=== PATIENT | female | born 1955 | race Caucasian/White ===

== ENCOUNTER → 2016-11-05 | Outpatient (CLI) | payer MEDICARE, OTHER ==
[2016-11-05 09:59] LABS: Anisocytosis Slight; CH 21.6; CHCM 29.4; HCT 34.2 % (34.0-46.0); HDW 3.15; HGB 10.4 gm/dL (11.4-16.0); Hypochromasia Marked; MCH 22.5 pg (25.0-35.0); MCHC 30.4 g/dL (31.0-37.0); MCV 73.8 fL (80.0-100.0); Microcytosis Moderate; RBC 4.63 m/uL (3.80-5.40); WBC 5.4 k/uL (3.8-10.6)
[2016-11-05 11:26] LABS: Erythrocyte Sedimentation Rate 13 mm/hr (0-20)
--- NOTE | 2016-11-05 11:35 | CT ---
EXAMINATION TYPE: CT ankle LT wo con DATE OF EXAM: 11/05/2016 9:53 AM COMPARISON: NONE HISTORY: Patient complains of continued left ankle pain post op. CT DLP: [address] of the left ankle with reconstruction imaging. TECHNIQUE: Unenhanced CT of the left ankle was performed with bone and soft tissue window settings coronado bmitted in the axial coronal and sagittal planes. FINDINGS: There is postoperative arthrodesis are noted to involve the tibia, talus and os calcis. 2 surgical sc rews enter the tibia and into the os calcis. A single surgical screw enters the anterior portion of t he talus and enters into a fragmented talus. There is collapse of the tail are dome with marked bony fragmentation identified. I do not see evidence for acute fracture. Cystic osseous changes involving the os calcis and various tarsal bones may reflect cystic degenerative change although chronic infect ion is not excluded. No evidence for bony destructive process. Soft tissue edema is noted. IMPRESSION: 1. Extensive postoperative change of arthrodesis with collapse and bony fragmentation of the talar do me and body.
== END | disposition home or self-care (01) ==
LOC: RADCTMAIN 09:14
PROVIDERS: ATTEND Orthopaedic Surgery
DX: M25.572 Pain in left ankle and joints of left foot (principal); Z98.890 Other specified postprocedural states
CPT/HCPCS: 83520; 85027; 85652; 86140

== ENCOUNTER → 2016-12-29 | Outpatient (CLI) | payer MEDICARE, OTHER | LOC: LABWHC1 14:05 | PROVIDERS: ATTEND Orthopaedic Surgery | DX: E55.9 Vitamin D deficiency, unspecified (principal) | CPT/HCPCS: 36415; 82306 ==

== ENCOUNTER → 2017-01-07 | Outpatient (CLI) | payer MEDICARE, OTHER ==
--- NOTE | 2017-01-08 08:08 | MM ---
Reason for exam: screening (asymptomatic). Last mammogram was performed 6 years ago. History: Patient is postmenopausal. Family history of breast cancer in maternal aunt and breast cancer in 2 sisters. Physical Findings: A clinical breast exam by your physician is recommended on an annual basis and results should be correlated with mammographic findings. MG Screening Mammo w CAD Bilateral CC and MLO view(s) were taken. Prior study comparison: January 08, 2011, [facility] DIGITAL RIGHT MAMMOGRAM w/CAD. November 18, 2010, bilateral digital screening mammo w/CAD. There are scattered fibroglandular densities. No significant changes when compared with prior studies. ASSESSMENT: Benign, BI-RAD 2 RECOMMENDATION: Routine screening mammogram of both breasts in 1 year.
== END | disposition home or self-care (01) ==
LOC: RADMAMWWP 16:36
PROVIDERS: ATTEND Family Medicine
DX: Z12.31 Encounter for screening mammogram for malignant neoplasm of breast (principal)

== ENCOUNTER → 2017-02-17 | Outpatient (CLI) | payer MEDICARE, OTHER ==
--- NOTE | 2017-02-18 11:59 | BD ---
EXAMINATION TYPE: MG DEXA axial skeleton. DATE OF EXAM: 02/17/2017 3:49 PM COMPARISON: NONE CLINICAL HISTORY: Height: 5 FT 6 IN Weight: 230 FRAX RISK QUESTIONS: Alcohol (3 or more units per day): NO Family History (Parent hip fracture): NO Glucocorticoids (More than 3mos): NO (Ex: prednisone, prednisolone, methylprednisolone, dexamethasone, and hydrocortisone). History of Fracture in Adulthood: YES Secondary Osteoporosis: 1. Type 1 Diabetes: NO 2. Hyperthyroidism: NO 3. Menopause before 45: NO 4. Malnutrition: NO 5. Chronic liver disease: NO Rheumatoid Arthritis: NO Current Tobacco Use: NO RISK FACTORS HISTORY OF: Surgery to Spine/Hip(right/left)/Wrist (right/left): RT HIP RELACEMENT/CSPINE/TSPINE When: [id number] Other Fractures since Age 51: LT ANKLE When: 4-5 YRS AGO Smoke tobacco: JUST STOPPED ONE MONTH AGO Drink Alcohol: RARELY Postmenopausal woman: AGE 49 MEDICATIONS: Additional Medications: ALPRAZOLAM,AMLODIPINE, INHALER, ASPIRIN, ATROVENT,GABAPENTIN, ESOMEPRAZOLE MA GNESIUM, HYDROCODONE, IBUPROFEN, PAROXETINE, PRIMIDONE, PROMETHAZINE,PROPRANOLOL, ROPINIROLE,TIZANIDI NE, TRAMADOL Additional History: COPD AND EMPHYSEMA EXAM MEASUREMENTS: Bone mineral densitometry was performed using the Medialets System. Bone mineral density as measured about the Lumbar spine is: ----- L1-L4(G/cm2): 1.145 T Score Values are as follows: ----- L2: -0.1 ----- L3: 0.3 ----- L4: -0.8 ----- L1-L4: -0.3 BASELINE Bone mineral density about the L hip (g/cm2): 0.837 T Score values are as follows: -----L Neck: -1.4 -----L Total: -1.5 BASELINE IMPRESSION: Osteopenia (T Score between -2.5 and -1 as noted by T score values There is slightly increased risk of fracture and the patient may be considered for treatment. Re-Screen 2-5 years. LEFT FEMUR NOTE: T-SCORE=SD OF THE YOUNG ADULT MEAN.
== END | disposition home or self-care (01) ==
LOC: RADBDWWP 15:15
PROVIDERS: ATTEND Family Medicine
DX: M85.80 Other specified disorders of bone density and structure, unspecified site (principal)
CPT/HCPCS: 77080

== ENCOUNTER 2017-04-12 19:45 | Observation (INO) | payer MEDICARE, OTHER ==
--- NOTE | 2017-04-12 20:20 | ED ---
Chest Pain HPI - General Chief Complaint: Chest Pain Stated Complaint: chest pain Time Seen by Provider: 04/12/17 20:19 Source: patient, EMS Mode of arrival: EMS Limitations: no limitations - History of Present Illness Initial Comments: This patient is a 62-year-old woman who presents to be alive for spasming pain along the costal margin bilaterally. The patient states that this has happened to her once before about 5 years ago. She also does have more frequent leg spasms that occur fairly regularly. Patient notes that today's episode started at 7 AM and has been coming going intermittently throughout the day. When the symptoms continued into this evening she decided that she should be evaluated here in emergency department. The patient states that due to the pain she has not taken her usual gabapentin or [place] today. MD Complaint: chest pain Onset/Timin -: hour(s) Onset: during rest Pain Location: left chest, right chest Pain Radiation: none Severity: severe Quality: other (Spasming) Consistency: intermittent Improves With: nothing Worsens With: nothing - Related Data Home Medications Medication Instructions Recorded Confirmed Primidone [Mysoline] 250 mg PO BID 04/09/15 04/12/17 Umeclidinium Brm/Vilanterol Tr 1 puff INHALATION RT-DAILY 04/09/15 04/12/17 [Anoro Ellipta 62.5-25 Mcg INH] Esomeprazole Magnesium [NexIUM] 40 mg PO DAILY 04/23/15 04/12/17 amLODIPine [Norvasc] 10 mg PO DAILY 04/23/15 04/12/17 Albuterol Inhaler [Ventolin Hfa 1 - 2 puff INHALATION RT-QID PRN 09/15/16 Inhaler] Aspirin [Adult Low Dose Aspirin EC] 81 mg PO DAILY 09/15/16 04/12/17 Gabapentin [Neurontin] 600 mg PO BID PRN 09/21/16 04/12/17 HYDROcodone/APAP 10-325MG [[place] 1 tab PO TID PRN 09/21/16 04/12/17 10-325] Ibuprofen [Motrin] 800 mg PO TID PRN 09/21/16 04/12/17 ALPRAZolam [Xanax] 0.5 mg PO BID PRN 04/12/17 04/12/17 ARIPiprazole [Abilify] 5 mg PO DAILY 04/12/17 04/12/17 Fluticasone Nasal [place] [Flonase 1 spray EA NOSTRIL BID 04/12/17 04/12/17 Nasal [place]] Ipratropium [place] [Atrovent Hfa] 2 puff INHALATION TID PRN 04/12/17 04/12/17 PARoxetine [Paxil] 20 mg PO DAILY 04/12/17 04/12/17 Promethazine HCl/Codeine 5 ml PO QID PRN 04/12/17 04/12/17 [Prometh-Codein 6.25-10 mg/5 ml] Allergies Allergy/AdvReac Type Severity Reaction Status Date / Time Gtvgblo-Pmv-Oih Reductase AdvReac Myalgia Verified 04/12/17 20:57 Inhibitor varenicline [From Chantix] AdvReac Nightmares Verified 04/12/17 20:57 Review of Systems ROS Statement: Those systems with pertinent positive or pertinent negative responses have been documented in the HPI. ROS Other: All systems not noted in ROS Statement are negative. Constitutional: Denies: fever, chills, weakness Respiratory: Denies: cough, dyspnea, wheezes, hemoptysis Cardiovascular: Reports: as per HPI, chest pain. Denies: palpitations, edema, syncope Gastrointestinal: Denies: abdominal pain, nausea, vomiting, melena, hematochezia Genitourinary: Denies: dysuria, hematuria Musculoskeletal: Denies: back pain Skin: Denies: rash Neurological: Denies: headache, weakness, numbness EKG Findings - EKG Results: EKG: interpreted by FLAKITA WNL, sinus rhythm (Rate 83 bpm), normal axis, normal QRS, normal ST/T, no acute changes - AL, Pacemaker, Normal: Normal tracing: normal tracing Past Medical History Past Medical History: Asthma, COPD, GERD/Reflux, Hypertension, Osteoarthritis ( OA) Additional Past Medical History / Comment(s): hand tremors, hepatitis c History of Any Multi-Drug Resistant Organisms: None Reported Past Surgical History: Back Surgery, Joint Replacement, Orthopedic Surgery Additional Past Surgical History / Comment(s): BACK FUSION, cervical fusion, left ANKLE SURGERY, left knee arthoscopy, TOTAL RIGHT HIP Past Anesthesia/Blood Transfusion Reactions: No Reported Reaction Past Psychological History: Anxiety Smoking Status: Current some day smoker Past Alcohol Use History: Rare Past Drug Use History: None Reported - Past Family History Mother Family Medical History: Deep Vein Thrombosis (DVT) Sister(s) Family Medical History: Cancer General Exam Limitations: no limitations Course Vital Signs 04/12/17 04/12/17 19:48 20:15 Temperature 97.8 F Pulse Rate 85 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 Patient is 62-year-old woman with very atypical chest pain, however she has not previously had a stress test per her report, and I'm not able find record of one and she has had significant risk factors including extensive smoking history , hypercholesterolemia, and there is also family history. Disposition Clinical Impression: Chest pain Disposition: ADMITTED IP TO THIS [facility] Condition: Fair Referrals: Shravan Carmona MD [Primary Care Provider] - 1-2 days
[2017-04-12 20:22] LABS: Anisocytosis Slight; Basophils % (A) 0 %; CH 21.8; CHCM 29.5; Eosinophils # (A) 0.2 k/uL (0-0.7); Eosinophils % (A) 3 %; HCT 35.8 % (34.0-46.0); HGB 10.9 gm/dL (11.4-16.0); Hypochromasia Marked; Luc # (Auto) 0.15; Luc % (Auto) 3; Lymphocytes # (A) 1.9 k/uL (1.0-4.8); Lymphocytes % (A) 36 %; MCH 22.5 pg (25.0-35.0); MCHC 30.3 g/dL (31.0-37.0); MCV 74.1 fL (80.0-100.0); Mean Platelet Volume 9.2; Microcytosis Moderate; Monocytes # (A) 0.4 k/uL (0-1.0); Monocytes % (A) 8 %; Neutrophils # (A) 2.7 k/uL (1.3-7.7); Neutrophils % (A) 51 %; RBC 4.83 m/uL (3.80-5.40); RDW 16.9 % (11.5-15.5); WBC 5.4 k/uL (3.8-10.6); WBC (Perox) 5.62
--- NOTE | 2017-04-12 20:22 | XR ---
EXAMINATION TYPE: XR chest 1V portable DATE OF EXAM: 04/12/2017 COMPARISON: 04/26/2015 HISTORY: Chest pain TECHNIQUE: Single frontal view of the chest is obtained. FINDINGS: There is a relative poor inspiration. There is no gross heart failure. There are chest nico ds. Cervical spine fusion surgery is noted. IMPRESSION: There is a poor inspiration that appears worse than last exam of 04/26/2015. There is colt aring of atelectasis in the midlung wild compared to old exam. No heart failure.
[2017-04-12 20:31] LABS: ALT 32 U/L (9-52); AST 19 U/L (14-36); Alkaline Phosphatase 124 U/L (38-126); Amylase 31 U/L (30-110); Anion Gap 10 mmol/L; Blood Urea Nitrogen 8 mg/dL (7-17); Calcium 8.9 mg/dL (8.4-10.2); Carbon Dioxide 23 mmol/L (22-30); Chloride 108 mmol/L (98-107); Glucose 139 mg/dL (74-99); Non-African American GFR(MDRD) >60 (>60 ml/min/1.73 sqM); Potassium 4.2 mmol/L (3.5-5.1); Sodium 141 mmol/L (137-145); Total Bilirubin 0.3 mg/dL (0.2-1.3); Total Protein 6.4 g/dL (6.3-8.2)
[2017-04-12 20:34] LABS: Partial Thromboplastin Time 24.6 sec (22.0-30.0); Prothrombin Time 9.9 sec (9.0-12.0)
[2017-04-12 20:39] LABS: Creatine Kinase 162 U/L (30-135)
[2017-04-12 20:52] LABS: Creatine Kinase MB 1.5 ng/mL (0.0-2.4); Troponin I <0.012 ng/mL (0.000-0.034)
[2017-04-12] MEDS ORDERED: NITROGLYCERIN SL TABS 0.4 MG TAB SUBLINGUAL PRN (21:52)
[2017-04-12] MEDS ORDERED: PROMETHAZ-COD 6.25-10 MG/5 ML 5 ML CUP PO PRN (21:55)
[2017-04-12] MEDS ORDERED: ALBUTEROL NEBULIZED 2.5 MG/3 ML INHALATION PRN (21:55)
[2017-04-12] MEDS ORDERED: GABAPENTIN 300 MG CAP PO PRN (21:55)
[2017-04-12] MEDS ORDERED: IBUPROFEN 800 MG TAB PO PRN (21:55)
[2017-04-12] MEDS ORDERED: ALPRAZolam 0.5 MG TAB PO PRN (21:55)
[2017-04-12] MEDS ORDERED: IPRATROPIUM 0.5 MG/2.5 ML NEBU INHALATION PRN (21:55)
[2017-04-12] MEDS ORDERED: SODIUM CHLORIDE 0.9% 1,000 ML IV SCH (22:00)
[2017-04-12 22:49] VITALS: TEMP 97.9
[2017-04-12] MEDS: HYDROcodone/APAP 10-325MG 1 EACH TAB PO PRN (22:50)
[2017-04-13 02:36] LABS: Creatine Kinase 146 U/L (30-135)
[2017-04-13 02:50] LABS: Creatine Kinase MB 1.5 ng/mL (0.0-2.4); Troponin I <0.012 ng/mL (0.000-0.034)
[2017-04-13] MEDS: IPRATROPIUM-ALBUTEROL 3 ML NEB INHALATION SCH ×2 (07:06→13:15)
[2017-04-13 07:29] VITALS: BP 140/79; RESP 16
[2017-04-13] MEDS ORDERED: PANTOPRAZOLE 40 MG TABLET PO SCH (07:30)
[2017-04-13 08:15] LABS: Creatine Kinase 131 U/L (30-135)
[2017-04-13 08:25] LABS: Cholesterol 194 mg/dL (<200); HDL Cholesterol 46 mg/dL (40-60); Triglycerides 123 mg/dL (<150)
[2017-04-13 08:28] LABS: Creatine Kinase MB 1.4 ng/mL (0.0-2.4); Troponin I <0.012 ng/mL (0.000-0.034)
[2017-04-13] MEDS: HYDROcodone/APAP 10-325MG 1 EACH TAB PO PRN ×2 (08:52→15:54)
[2017-04-13] MEDS ORDERED: PRIMIDONE 250 MG TAB PO SCH (09:00)
[2017-04-13] MEDS ORDERED: ARIPiprazole 5 MG TAB PO SCH (09:00)
[2017-04-13] MEDS ORDERED: ASPIRIN 325 MG TAB PO SCH (09:00)
[2017-04-13] MEDS ORDERED: PARoxetine 20 MG TAB PO SCH (09:00)
[2017-04-13] MEDS ORDERED: FLUTICASONE 50MCG/SPRAY NASAL 16GM EA NOSTRIL SCH (09:00)
[2017-04-13] MEDS ORDERED: amLODIPine 10 MG TAB PO SCH (09:00)
[2017-04-13] MEDS ORDERED: DOBUTamine DRIP for NUC MED 500 MG in DEXTROSE/WATER 1 250ML.BAG IV ONE (10:27)
[2017-04-13 11:33] LABS: % Iron Saturation 3.2 % (20-50)
--- NOTE | 2017-04-13 12:17 | ECHOF ---
Referral Reason:chest pain MEASUREMENTS -------- HEIGHT: 167.6 cm WEIGHT: 104.3 kg BP: IVSd: 1.0 cm (0.6 - 1.1) LVIDd: 4.1 cm (3.9 - 5.3) LVPWd: 1.2 cm (0.6 - 1.1) IVSs: 1.5 cm LVIDs: 2.4 cm LVPWs: 1.9 cm Ao Diam: 3.4 cm (2.0 - 3.7) AV Cusp: 2.1 cm (1.5 - 2.6) LA Diam: 2.7 cm (2.7 - 3.8) MV EXCURSION: 15.618 mm (> 18.000) MV EF SLOPE: 98 mm/s (70 - 150) EPSS: 2.2 cm MV E Jesús: 1.21 m/s MV DecT: 160 ms MV A Jesús: 1.29 m/s MV E/A Ratio: 0.94 RAP: 5.00 mmHg RVSP: 20.28 mmHg FINDINGS -------- Sinus rhythm. This was a technically difficult study with suboptimal views. There is mild concentric left ventricular hypertrophy. Overall left ventricular systolic function is normal with, an EF between 55 - 60 %. The right ventricle is normal in size and function. The left atrium is normal in size. The right atrium is normal in size. Aortic valve is trileaflet and is mildly thickened. The mitral valve leaflets are mildly thickened. Mild mitral regurgitation is present. Mild tricuspid regurgitation present. The right ventricular systolic pressure, as measured by Doppler, is 20.28mmHg. Pulmonic valve appears structurally normal. The aortic root size is normal. The pericardium is normal. CONCLUSIONS -------- 1. Sinus rhythm. 2. Mild mitral regurgitation is present. 3. Mild tricuspid regurgitation present. 4. The right ventricular systolic pressure, as measured by Doppler, is 20.28mmHg. 5. Pulmonic valve appears structurally normal. 6. The aortic root size is normal. 7. The pericardium is normal. 8. This was a technically difficult study with suboptimal views. 9. There is mild concentric left ventricular hypertrophy. 10. Overall left ventricular systolic function is normal with, an EF between 55 - 60 %. 11. The right ventricle is normal in size and function. 12. The left atrium is normal in size. 13. The right atrium is normal in size. 14. Aortic valve is trileaflet and is mildly thickened. 15. The mitral valve leaflets are mildly thickened. MANAGER GAMES: Fabby Ronquillo RDCS
[2017-04-13 13:18] VITALS: PULSE 78
--- NOTE | 2017-04-13 14:54 | P.HPIM ---
History of Present Illness H&P Date: 04/12/17 Chief Complaint: Chest pain 62-year-old female who presented on the day of admission to the emergency room with a chief complaint of developing chest discomfort. She describes it as a tightness. She stated occurred around earlier in the morning it was intermittent throughout the day. Continue in the morning she decided to come to the emergency room to be evaluated for the above-mentioned symptoms. Patient stated that she did prior incident about 5 years ago. Subsequently the patient was admitted to the services of the attending with chest protocol initiated a cardiology consultation was requested. Patient described the pain in the left anterior chest wall as a spasm intermittent nothing seemed to improve it nothing seemed to make it worse Review of Systems Essentially unremarkable except as mentioned in the present illness Past Medical History Past Medical History: Asthma, COPD, GERD/Reflux, Hypertension, Osteoarthritis ( OA) Additional Past Medical History / Comment(s): hand tremors, hepatitis c History of Any Multi-Drug Resistant Organisms: None Reported Past Surgical History: Back Surgery, Joint Replacement, Orthopedic Surgery Additional Past Surgical History / Comment(s): BACK FUSION, cervical fusion, left ANKLE SURGERY, left knee arthoscopy, TOTAL RIGHT HIP Past Anesthesia/Blood Transfusion Reactions: No Reported Reaction Past Psychological History: Anxiety Smoking Status: Current some day smoker Past Alcohol Use History: Rare Past Drug Use History: None Reported - Past Family History Mother Family Medical History: Deep Vein Thrombosis (DVT) Sister(s) Family Medical History: Cancer Medications and Allergies Home Medications Medication Instructions Recorded Confirmed Type Primidone [Mysoline] 250 mg PO BID 04/09/15 04/12/17 History Umeclidinium Brm/Vilanterol Tr 1 puff INHALATION RT-DAILY 04/09/15 04/12/17 History [Anoro Ellipta 62.5-25 Mcg INH] Esomeprazole Magnesium [NexIUM] 40 mg PO DAILY 04/23/15 04/12/17 History amLODIPine [Norvasc] 10 mg PO DAILY 04/23/15 04/12/17 History Albuterol Inhaler [Ventolin Hfa 1 - 2 puff INHALATION RT-QID PRN 09/15/16 History Inhaler] Aspirin [Adult Low Dose Aspirin EC] 81 mg PO DAILY 09/15/16 04/12/17 History Gabapentin [Neurontin] 600 mg PO BID PRN 09/21/16 04/12/17 History HYDROcodone/APAP 10-325MG [[place] 1 tab PO TID PRN 09/21/16 04/12/17 History 10-325] Ibuprofen [Motrin] 800 mg PO TID PRN 09/21/16 04/12/17 History ALPRAZolam [Xanax] 0.5 mg PO BID PRN 04/12/17 04/12/17 History ARIPiprazole [Abilify] 5 mg PO DAILY 04/12/17 04/12/17 History Fluticasone Nasal [place] [Flonase 1 spray EA NOSTRIL BID 04/12/17 04/12/17 History Nasal [place]] Ipratropium [place] [Atrovent Hfa] 2 puff INHALATION TID PRN 04/12/17 04/12/17 History PARoxetine [Paxil] 20 mg PO DAILY 04/12/17 04/12/17 History Promethazine HCl/Codeine 5 ml PO QID PRN 04/12/17 04/12/17 History [Prometh-Codein 6.25-10 mg/5 ml] Allergies Allergy/AdvReac Type Severity Reaction Status Date / Time Xjokrsy-Fiy-Btl Reductase AdvReac Myalgia Verified 04/12/17 20:57 Inhibitor varenicline [From Chantix] AdvReac Nightmares Verified 04/12/17 20:57 Physical Exam Vitals: Vital Signs Temp Pulse Pulse Pulse Resp BP BP 04/13/17 13:25 78 04/13/17 13:15 78 04/13/17 07:24 80 04/13/17 07:20 97.9 F 76 16 140/79 04/13/17 07:12 78 04/13/17 04:02 97.9 F 74 18 114/54 04/13/17 04:00 77 18 04/13/17 00:31 97.9 F 77 18 112/65 04/12/17 23:00 76 18 04/12/17 22:47 97.9 F 77 18 137/63 04/12/17 22:00 97.8 F 80 18 139/60 04/12/17 20:15 78 04/12/17 19:48 97.8 F 85 20 138/64 Pulse Ox 04/13/17 13:25 04/13/17 13:15 04/13/17 07:24 04/13/17 07:20 94 L 04/13/17 07:12 99 04/13/17 04:02 100 04/13/17 04:00 04/13/17 00:31 97 04/12/17 23:00 04/12/17 22:47 97 04/12/17 22:00 97 04/12/17 20:15 04/12/17 19:48 98 Intake and Output 04/12/17 04/13/17 04/13/17 22:59 06:59 14:59 Intake Total 560 Balance 560 Intake: Oral 560 Other: Voiding Method Toilet # Voids 2 Weight 104.326 kg 104.326 kg GENERAL APPEARANCE: 62-year-old female looking older than stated age patient is alert, oriented, in no acute distress. VITAL SIGNS: Reviewed HEENT: Head is normocephalic and atraumatic. Pupils are equal and reactive. The nares are patent. Oropharynx is clear without lesions. NECK: Supple without lymphadenopathy. Traches midline. HEART: S1, S2. Regular rate and rhythm. No murmur noted currently denying chest pain LUNGS: No crackles or wheezes are heard. On room air adequate air movement no cough noted ABDOMEN: Soft, nontender, nondistended with good bowel sounds. No peritoneal signs. No palpable organomegaly or masses. EXTREMITIES: Normal skin color and turgor. No cyanosis, rash, ulceration, clubbing or edema. Radial pedal pulses are 2/4 bilaterally. NEUROLOGICAL: No focal deficits. Strength and sensation are grossly intact. Results CBC & Chem 7: 04/12/17 19:59 04/12/17 19:59 Labs: Abnormal Lab Results - Last 24 Hours (Table) 04/12/17 04/12/17 04/12/17 Range/Units 19:59 19:59 19:59 Hgb 10.9 L (11.4-16.0) gm/dL MCV 74.1 L (80.0-100.0) fL MCH 22.5 L (25.0-35.0) pg MCHC 30.3 L (31.0-37.0) g/dL RDW 16.9 H (11.5-15.5) % Chloride 108 H (98-107) mmol/L Creatinine 0.50 L (0.52-1.04) mg/dL Glucose 139 H (74-99) mg/dL Iron (37-170) ug/dL % Saturation (20-50) % Total Creatine Kinase 162 H (30-135) U/L LDL Cholesterol, Calc (0-99) mg/dL 04/13/17 04/13/17 04/13/17 Range/Units 01:48 07:23 07:23 Hgb (11.4-16.0) gm/dL MCV (80.0-100.0) fL MCH (25.0-35.0) pg MCHC (31.0-37.0) g/dL RDW (11.5-15.5) % Chloride (98-107) mmol/L Creatinine (0.52-1.04) mg/dL Glucose (74-99) mg/dL Iron 13 L (37-170) ug/dL % Saturation 3.2 L (20-50) % Total Creatine Kinase 146 H (30-135) U/L LDL Cholesterol, Calc 123 H (0-99) mg/dL Thrombosis Risk Factor Assmnt - Choose All That Apply Each Factor Represents 1 point: Obesity (BMI >25) Each Risk Factor Represents 2 Points: Age 61-74 years Thrombosis Risk Factor Assessment Total Risk Factor Score: 3 Thrombosis Risk Factor Assessment Level: Moderate Risk Assessment and Plan Plan: Impression Present on admission atypical chest pain Positive family history of coronary artery disease Significant nicotine dependency greater than a 40 year history Hypertension Esophageal reflex Anxiety disorder nonspecified Echocardiogram done on April 13 left ventricular systolic function normal EF between 55 and 60% Hyperlipidemia Plan Await cardiology's workup if negative will discharge patient home Smoking cessation information provided patient's been advised to stop smoking cigarettes Resume home meds as appropriate Follow-up on a dobutamine stress echo DVT and GI prophylaxis The above impression and plan of care have been discussed and directed by signing physician. Lucila Luna nurse practitioner acting as scribe for signing physician.
--- NOTE | 2017-04-13 15:31 | P.DS ---
Providers Date of admission: 04/12/17 21:52 Expected date of discharge: 04/13/17 Attending physician: Shravan Carmona Consults: 04/12/17 21:52 Consult Physician Routine Consulting Provider: Salazar Chau Consult Reason/Comments: chest pain Do you want consulting provider notified?: Yes Primary care physician: [facility] Course: 62-year-old female who presented on the day of admission to the emergency room with a chief complaint of developing chest discomfort. She describes it as a tightness. She stated occurred around earlier in the morning it was intermittent throughout the day. Continue in the morning she decided to come to the emergency room to be evaluated for the above-mentioned symptoms. Patient stated that she did prior incident about 5 years ago. Subsequently the patient was admitted to the services of the attending with chest protocol initiated a cardiology consultation was requested. Patient described the pain in the left anterior chest wall as a spasm intermittent nothing seemed to improve it nothing seemed to make it worse Patient was seen by cardiology service. Underwent a dobutamine stress test. Cardiology indicated there were no acute findings. Cardiac enzymes 3 sets were negative. Patient's chest pain was felt to be atypical and the patient to be discharged home Echocardiogram obtained on April 13 showed left contiguous systolic function normal with an EF between 55 and 60%. Impression Present on admission atypical chest pain Positive family history of coronary artery disease Significant nicotine dependency greater than a 40 year history Hypertension Esophageal reflex Anxiety disorder nonspecified Echocardiogram done on April 13 left ventricular systolic function normal EF between 55 and 60% Hyperlipidemia The above impression and plan of care have been discussed and directed by signing physician. Lucila Luna nurse practitioner acting as scribe for signing physician. Patient Condition at Discharge: Fair Plan - Discharge Summary New Discharge Prescriptions: Continue Primidone [Mysoline] 250 mg PO BID Umeclidinium Brm/Vilanterol Tr [Anoro Ellipta 62.5-25 Mcg INH] 1 puff INHALATION RT-DAILY amLODIPine [Norvasc] 10 mg PO DAILY Esomeprazole Magnesium [NexIUM] 40 mg PO DAILY Albuterol Inhaler [Ventolin Hfa Inhaler] 1 - 2 puff INHALATION RT-QID PRN PRN Reason: Shortness Of Breath Aspirin [Adult Low Dose Aspirin EC] 81 mg PO DAILY Gabapentin [Neurontin] 600 mg PO BID PRN PRN Reason: Nerve Pain HYDROcodone/APAP 10-325MG [[place] 10-325] 1 tab PO TID PRN PRN Reason: Pain Ibuprofen [Motrin] 800 mg PO TID PRN PRN Reason: Pain PARoxetine [Paxil] 20 mg PO DAILY Ipratropium [place] [Atrovent Hfa] 2 puff INHALATION TID PRN PRN Reason: Shortness Of Breath Fluticasone Nasal [place] [Flonase Nasal [place]] 1 spray EA NOSTRIL BID Promethazine HCl/Codeine [Prometh-Codein 6.25-10 mg/5 ml] 5 ml PO QID PRN PRN Reason: Cough ALPRAZolam [Xanax] 0.5 mg PO BID PRN PRN Reason: Anxiety ARIPiprazole [Abilify] 5 mg PO DAILY Discharge Medication List Primidone [Mysoline] 250 mg PO BID 04/09/15 [History] Umeclidinium Brm/Vilanterol Tr [Anoro Ellipta 62.5-25 Mcg INH] 1 puff INHALATION RT-DAILY 04/09/15 [History] Esomeprazole Magnesium [NexIUM] 40 mg PO DAILY 04/23/15 [History] amLODIPine [Norvasc] 10 mg PO DAILY 04/23/15 [History] Albuterol Inhaler [Ventolin Hfa Inhaler] 1 - 2 puff INHALATION RT-QID PRN [History] Aspirin [Adult Low Dose Aspirin EC] 81 mg PO DAILY 09/15/16 [History] Gabapentin [Neurontin] 600 mg PO BID PRN 09/21/16 [History] HYDROcodone/APAP 10-325MG [[place] 10-325] 1 tab PO TID PRN 09/21/16 [History] Ibuprofen [Motrin] 800 mg PO TID PRN 09/21/16 [History] ALPRAZolam [Xanax] 0.5 mg PO BID PRN 04/12/17 [History] ARIPiprazole [Abilify] 5 mg PO DAILY 04/12/17 [History] Fluticasone Nasal [place] [Flonase Nasal [place]] 1 spray EA NOSTRIL BID 04/12/17 [ History] Ipratropium [place] [Atrovent Hfa] 2 puff INHALATION TID PRN 04/12/17 [History] PARoxetine [Paxil] 20 mg PO DAILY 04/12/17 [History] Promethazine HCl/Codeine [Prometh-Codein 6.25-10 mg/5 ml] 5 ml PO QID PRN [History] Follow up Appointment(s)/Referral(s): Shravan Carmona MD [Primary Care Provider] - 1-2 days Discharge Disposition: HOME SELF-CARE
--- NOTE | 2017-04-13 16:46 | HP ---
CHIEF COMPLAINT: Ext[age]oou[age]-old white female who presents with spasms along her left costal margin, bilateral ribs. She states this happened 5 years ago. She also has severe cramping in her legs at the same time intermittently throughout the day; it comes and goes. She is obese. She has multiple risk factors. She is admitted for chest pain, rule out myocardial infarction. Her first set of troponin is negative. The pain improves with nothing, worsens with nothing except maybe deep breathing. It occurs during spasms in her legs. Home medications include: 1. Mysoline for essential tremor. 2. Anoro for COPD. 3. Nexium. 4. Amlodipine. 5. Ventolin. 6. Aspirin. 7. Gabapentin. 8. [place]. 9. Motrin. 10. Xanax. 11. Abilify. 12. Flonase. 13. Atrovent nasal spray. 14. Paxil. 15. Promethazine with codeine. ALLERGIES: STATINS and CHANTIX. Fourteen-point review of systems negative except for what is mentioned in the HPI. EKG shows sinus rhythm, no acute changes. PAST MEDICAL AND SURGICAL HISTORY: 1. Asthma. 2. COPD. 3. GERD. 4. Hypertension. 5. Osteoarthritis. 6. Essential tremor. 7. Hepatitis C. 8. Back surgery. 9. Joint replacement. 10. Orthopedic surgery. 11. Back fusion. 12. Cervical fusion. 13. Left ankle surgery. 14. Left knee arthroscopy. 15. Right total hip. 16. History of anxiety. She is a current sometimes smoker. FAMILY HISTORY: Mother with a DVT, sister with cancer. PHYSICAL EXAMINATION: Temperature 97.8, respiratory rate 18 to 20, blood pressure 130s over 60s, oxygen saturation 98% on room air. CARDIOVASCULAR: S1, S2. LUNGS: Transmitted upper airway sounds. GI: Soft, distended due to obesity. HEMATOLOGY: Negative for Homans's. VASCULAR: Normal dorsalis pedis, posterior tibial, radial pulses. PSYCHIATRIC: Very anxious and nervous, with rapid speech. ENDOCRINE: BMI is over 40. ASSESSMENT: 1. Atypical chest pain. Rule out myocardial infarction. Multiple risk factors, including extensive smoking history, COPD, asthma, hypertension, hypercholesterolemia. 2. Possible bipolar disorder. 3. Essential tremor. Cardiology is consulted. Will rule out myocardial infarction. Negative D-dimer ( ) most likely a pulmonary embolism. Chest x-ray is normal. MTDD
--- NOTE | 2017-04-13 21:12 | CONS ---
Mrs. Plunkett is a 62-year-old female who is seen for cardiac evaluation. This patient was admitted through the emergency room with a complaint of chest pain. Patient has a crampy feeling in the chest which occurs along the costral margin ; comes and goes. The pain was not radiating to the arm, neck or jaw. Pain was not associated with any nausea, vomiting or sweating. Patient denies any exertional chest discomfort or prior myocardial infarction. Her physical activities are limited. The patient has a history of hypertension and she does smoke. There is no history of diabetes or prior myocardial infarction. Patient's home medications included: 1. Mysoline. 2. Ellipta. 3. Nexium. 4. Norvasc. 5. Ventolin. 6. Neurontin. 7. Motrin. 8. Xanax. 9. Abilify. 10. Atrovent. 11. Paxil. 12. Phenergan with codeine. Past medical history includes: 1. History of back surgery. 2. Joint replacement. 3. Orthopedic surgeries. 4. Cervical fusion. 5. Left ankle surgery. 6. Left knee arthroscopy. 7. Right total hip surgery. 8. History of hepatitis C. 9. Hand tremors. Physical examination at present reveals a 62-year-old obesely built female who does not appear to be in any acute distress. Patient's blood pressure is 140/79 mmHg. HEAD/ENT EXAMINATION: Negative. NECK: Supple. There is no increase in jugular venous pressure. Both the carotid pulses are felt. There is no bruit. Chest is symmetrical. HEART: The PMI is not felt. First and second heart sounds are normal. There is no evidence of any murmur. Lungs are clinically clear to auscultation and percussion. Abdomen is soft. Liver and spleen are not enlarged. Bowel sounds are heard. EXTREMITIES: Peripheral pulsations are 2+. EKG shows normal sinus rhythm without any acute ischemic changes. EKG is normal. Cardiac enzymes are normal. FINAL IMPRESSION: 1. Chest pain suggestive of atypical angina. 2. History of hypertension. 3. History of smoking. 4. Multiple orthopedic surgeries. Patient's LDL level is 123. RECOMMENDATIONS: Patient will be evaluated with an echocardiogram and dobutamine echocardiographic study. If they are negative, the patient can be discharged home. In view of her history of hypertension and smoking and LDL being 123, I will start the patient on Lipitor 20 mg daily. MTDD
[2017-04-14] MEDS ORDERED: ATORVASTATIN 20 MG TAB PO SCH (09:00)
--- NOTE | 2017-04-14 12:48 | PCN ---
DATE OF SERVICE: 04/13/2017 DOBUTAMINE ECHOCARDIOGRAM INDICATION: Chest pain. BASELINE HEART RATE: 75 BASELINE BLOOD PRESSURE: 106/58 MAXIMUM HEART RATE: 143 MAXIMUM BLOOD PRESSURE: 173/51 85% MPHR: 135 100?% MPHR: 159 METS: MAXIMUM STAGE REACHED: 4 TOTAL EXERCISE TIME: 10:15 Baseline EKG shows sinus rhythm, normal axis, normal intervals. Patient was given intravenous dobutamine over a period of 10 minutes as per protocol, achieving 90% of predicted maximum heart rate without chest pain or diagnostic ST segment depression. Baseline echo shows normal left ventricular size, wall motion and systolic function. Post-dobutamine infusion there is normal hyperdynamic response of all segments of myocardium noted. The endocardial visualization was improved by using Definity contrast. CONCLUSION: 1. Negative stress test by EKG criteria. 2. Negative dobutamine echo. MTDD
== END 2017-04-13 16:40 | disposition home or self-care (01) ==
LOC: EC 19:45 → 3OBS 21:52
PROVIDERS: ADMIT Family Medicine; ATTEND Family Medicine
DX: R07.89 Other chest pain (principal); Z82.49 Family history of ischemic heart disease and other diseases of the circulatory system; F17.200 Nicotine dependence, unspecified, uncomplicated; I10 Essential (primary) hypertension; K21.9 Gastro-esophageal reflux disease without esophagitis; F41.9 Anxiety disorder, unspecified; E78.5 Hyperlipidemia, unspecified; M62.838 Other muscle spasm; J44.9 Chronic obstructive pulmonary disease, unspecified; M19.90 Unspecified osteoarthritis, unspecified site; R25.1 Tremor, unspecified; B19.20 Unspecified viral hepatitis C without hepatic coma; E78.00 Pure hypercholesterolemia, unspecified; Z79.899 Other long term (current) drug therapy; Z79.82 Long term (current) use of aspirin; Z88.8 Allergy status to other drugs, medicaments and biological substances; Z71.6 Tobacco abuse counseling
CPT/HCPCS: 99285 ×2; 36415; 94640 ×2; 94760; 93005; 93017; 93306; 85379; 80061; 80053; 84443; 82150; 82550 ×2; 82553 ×2; 83540; 83550; 83690; 83735; 84484 ×2; 85025; 85610; 85730; 71010; G0378 ×2; C8928; J1250; Q9957; 93350

== ENCOUNTER → 2017-05-13 | Outpatient (CLI) | payer MEDICARE, OTHER ==
--- NOTE | 2017-05-13 08:38 | US ---
EXAMINATION TYPE: US liver DATE OF EXAM: 05/13/2017 COMPARISON: Complete abdominal ultrasound July 27, 2010. CT abdomen and pelvis January 30, 2011 CLINICAL HISTORY: Z86.19 HX OF OTHER INFECTIOUS DISEASE. larger habitus EXAM MEASUREMENTS: Liver Length: 14.9 cm CBD: 0.6 cm Right Kidney: 8.7 x 5.0 x 5.7 cm Pancreas: tail gassed out, visualized portions wnl Liver: wnl Gallbladder: Surgically absent CBD: wnl Right Kidney: wnl Visualized liver is slightly heterogeneously hyperechoic in appearance consistent with mild diffuse f atty infiltration. No worrisome intrahepatic mass or intrahepatic ductal dilatation is seen. IMPRESSION: Mild diffuse fatty infiltration of liver remains present.
== END ==
LOC: RADUSWWP 08:09
DX: Z09 Encounter for follow-up examination after completed treatment for conditions other than malignant neoplasm (principal); Z86.19 Personal history of other infectious and parasitic diseases; K76.0 Fatty (change of) liver, not elsewhere classified
CPT/HCPCS: 76705

== ENCOUNTER → 2017-06-07 | Outpatient (CLI) | payer MEDICARE, OTHER ==
[2017-06-07 14:48] LABS: Anisocytosis Slight; Basophils % (A) 0 %; Bilirubin, Delta 0.2 mg/dL (0.0-0.2); CH 21.2; CHCM 29.9; Eosinophils # (A) 0.2 k/uL (0-0.7); Eosinophils % (A) 3 %; HCT 36.8 % (34.0-46.0); HDW 3.45; HGB 10.7 gm/dL (11.4-16.0); Hypochromasia Marked; Luc # (Auto) 0.18; Luc % (Auto) 3; Lymphocytes # (A) 1.9 k/uL (1.0-4.8); Lymphocytes % (A) 29 %; MCH 20.6 pg (25.0-35.0); MCV 71.1 fL (80.0-100.0); Mean Platelet Volume 7.9; Microcytosis Marked; Monocytes # (A) 0.5 k/uL (0-1.0); Monocytes % (A) 7 %; Neutrophils # (A) 3.9 k/uL (1.3-7.7); Neutrophils % (A) 58 %; Poikilocytosis Slight; RBC 5.18 m/uL (3.80-5.40); Total Bilirubin 0.2 mg/dL (0.2-1.3); Total Protein 6.6 g/dL (6.3-8.2); WBC 6.6 k/uL (3.8-10.6); WBC (Perox) 6.95
[2017-06-08 14:26] LABS: HCV Qualitative Result Not detected (Not detected)
== END | disposition home or self-care (01) ==
LOC: LABWHC1 14:01
PROVIDERS: ATTEND Physician Assistant
DX: Z09 Encounter for follow-up examination after completed treatment for conditions other than malignant neoplasm (principal); Z86.19 Personal history of other infectious and parasitic diseases
CPT/HCPCS: 36415; 80076; 85025; 87522

== ENCOUNTER → 2017-07-14 | Outpatient (CLI) | payer MEDICARE, OTHER | END | disposition home or self-care (01) | LOC: LABWHC1 13:58 | PROVIDERS: ATTEND Orthopaedic Surgery Foot and Ankle Surgery | DX: M25.572 Pain in left ankle and joints of left foot (principal); M79.672 Pain in left foot; M19.172 Post-traumatic osteoarthritis, left ankle and foot | CPT/HCPCS: 36415; 82306 ==

== ENCOUNTER → 2017-07-30 | Outpatient (CLI) | payer MEDICARE, OTHER ==
[~2017-07-30] MED LIST: REGADENOSON 0.4 MG/5 ML SYRINGE IV ONE
--- NOTE | 2017-07-30 12:30 | NM ---
EXAMINATION TYPE: NM stress lexiscan cardiolite DATE OF EXAM: 07/30/2017 COMPARISON: NONE HISTORY: Abnormal EKG TECHNIQUE: After the intravenous administration of 11.36 mCi Tc 99m Sestamibi - Cardiolite resting S PECT images acquired 45 minutes post injection. The patient received 0.4mg Lexiscan, 29.1 mCi Tc 99m Sestamibi - Stress images obtained [address] injection FINDINGS: Review of stress and rest SPECT images demonstrates no distinct perfusion abnormality. Small fixed de fect of the inferior wall is greater on rest than stress relating to artifact, possibly GI or diaphra gmatic related. Gated analysis shows normal wall motion with a decreased estimated left ventricular e jection fraction of 43% %. TID of 0.81, within normal limits IMPRESSION: 1. No scintigraphic evidence for reversible ischemia. 2. Decreased estimated left ventricular ejection fraction of 43%.
--- NOTE | 2017-07-30 20:59 | EST ---
EXERCISE STRESS AGE: 62. SEX: Female. HEIGHT: 66. WEIGHT: 224. PROTOCOL: Lexiscan Cardiolite. HEART RATE REST: 78. BLOOD PRESSURE REST: 143/74. MAXIMUM HEART RATE ACHIEVED: 106. MAXIMUM BLOOD PRESSURE: 172/70. INDICATIONS: Abnormal EKG. CLINICAL INFORMATION: Baseline EKG shows sinus rhythm, normal axis, normal intervals. Patient was given intravenous Lexiscan as per protocol. Did not have chest pain or diagnostic ST-segment depression. CONCLUSIONS: 1. Negative stress test by EKG criteria. 2. Cardiolite portion of this stress test will be reported separately. MMODL / IJN: [id number] /
== END | disposition home or self-care (01) ==
LOC: RADNMMAIN 08:42
PROVIDERS: ATTEND Family Medicine
DX: R94.31 Abnormal electrocardiogram [ECG] [EKG] (principal)
CPT/HCPCS: 93017; 78452; A9500; J2785

== ENCOUNTER → 2017-08-24 | Outpatient (CLI) | payer MEDICARE, OTHER | END | disposition home or self-care (01) | LOC: LABWHC1 14:55 | PROVIDERS: ATTEND Orthopaedic Surgery Foot and Ankle Surgery | DX: M19.172 Post-traumatic osteoarthritis, left ankle and foot (principal) | CPT/HCPCS: 36415; 82306 ==

== ENCOUNTER → 2017-08-24 | Outpatient (CLI) | payer MEDICARE, OTHER ==
--- NOTE | 2017-08-25 13:18 | ECHOF ---
Referral Reason:I50.9 Congestive heart failure MEASUREMENTS -------- HEIGHT: 167.6 cm WEIGHT: 101.6 kg BP: 141/65 IVSd: 1.2 cm (0.6 - 1.1) LVIDd: 5.4 cm (3.9 - 5.3) LVPWd: 1.2 cm (0.6 - 1.1) IVSs: 1.5 cm LVIDs: 3.9 cm LVPWs: 1.9 cm Ao Diam: 3.2 cm (2.0 - 3.7) AV Cusp: 2.3 cm (1.5 - 2.6) LA Diam: 3.3 cm (2.7 - 3.8) MV EXCURSION: 17.701 mm (> 18.000) MV EF SLOPE: 142 mm/s (70 - 150) EPSS: 1.2 cm MV E Jesús: 1.03 m/s MV DecT: 209 ms MV A Jesús: 1.05 m/s MV E/A Ratio: 0.99 RAP: 5.00 mmHg RVSP: 12.99 mmHg FINDINGS -------- Sinus rhythm. This was a technically difficult study with suboptimal views. The left ventricular size is normal. There is mild concentric left ventricular hypertrophy. Overa ll left ventricular systolic function is low-normal with, an EF between 50 - 55 %. The right ventricle is normal in size and function. The left atrium is normal in size. The right atrium is normal in size. 1.5mg of Definity was utilized for enhancement of images The aortic valve is trileaflet, and appears structurally normal. No aortic stenosis or regurgitation. The mitral valve is normal. There is trace mitral regurgitation. Trace tricuspid regurgitation present. The right ventricular systolic pressure, as measured by Dopp ler, is 12.99mmHg. The pulmonic valve was not well visualized. There is no pulmonic regurgitation present. The aortic root size is normal. There is no pericardial effusion. CONCLUSIONS -------- 1. Sinus rhythm. 2. This was a technically difficult study with suboptimal views. 3. There is mild concentric left ventricular hypertrophy. 4. Overall left ventricular systolic function is low-normal with, an EF between 50 - 55 %. 5. The left atrium is normal in size. 6. 1.5mg of Definity was utilized for enhancement of images 7. The aortic valve is trileaflet, and appears structurally normal. No aortic stenosis or regurgitati on. 8. There is trace mitral regurgitation. 9. Trace tricuspid regurgitation present. 10. The right ventricular systolic pressure, as measured by Doppler, is 12.99mmHg. 11. The pulmonic valve was not well visualized. 12. There is no pulmonic regurgitation present. 13. The aortic root size is normal. 14. There is no pericardial effusion. [employer]OL [employer] EQUIPMENT RENTAL CLERK: Fabby Ronquillo RDCS
== END | disposition home or self-care (01) ==
LOC: RADECHMAIN 15:27
PROVIDERS: ATTEND Family Medicine
DX: I07.1 Rheumatic tricuspid insufficiency (principal); I35.8 Other nonrheumatic aortic valve disorders
CPT/HCPCS: C8929; Q9957; 36415; 82306; 93306

== ENCOUNTER → 2017-09-03 | Outpatient (CLI) | payer MEDICARE, OTHER ==
--- NOTE | 2017-09-03 15:30 | CT ---
Cervical spine CT with contrast HISTORY: Neck pain Helical acquisition through the cervical spine following 100 cc Omni 300 IV. Coronal and sagittal rec onstructions performed. Correlation to prior neck CT 05/27/2014 Posterior fusion changes at C3-C7 are again noted, laminectomies are present at C4 and C5, C6. There is artifact due to patient's hardware. Hardware stable, left screw at C7 courses into the disc space as on prior. No significant spinal stenosis is evident. Alignment is unchanged. Loss of disc height i s present at the intervertebral levels, there is multilevel spondylosis. Vertebral body height is sta ble, bone mineralization is unchanged. There is multilevel foraminal encroachment. Loss of normal aj dosis is present. Lung apices show emphysematous changes. Internal carotid arteries are tortuous and courses medially a nterior to the cervical spine at the level of patient's surgery. IMPRESSION: Findings are similar to prior exam. Postop changes as described. Multilevel foraminal enc roachment. Degenerative disc disease. Emphysema.
== END ==
LOC: RADCTMAIN 12:21
PROVIDERS: ATTEND Family Medicine
DX: M50.30 Other cervical disc degeneration, unspecified cervical region (principal); J43.9 Emphysema, unspecified; Z98.890 Other specified postprocedural states
CPT/HCPCS: 72126; Q9967

== ENCOUNTER → 2017-11-02 | Outpatient (CLI) | payer MEDICARE, OTHER | END | disposition home or self-care (01) | LOC: LABWHC1 14:50 | PROVIDERS: ATTEND Orthopaedic Surgery Foot and Ankle Surgery | DX: M19.172 Post-traumatic osteoarthritis, left ankle and foot (principal) | CPT/HCPCS: 36415; 82306 ==

== ENCOUNTER → 2018-04-13 | Outpatient (CLI) | payer MEDICARE, OTHER ==
--- NOTE | 2018-04-13 14:27 | CTL ---
EXAMINATION TYPE: CT Low Dose Lung DATE OF EXAM ORDERED: 04/13/2018 COMPARISON: None HISTORY: . Low Dose CT Lung Screening CT DLP: 113.[address] CTDI: 3.8 mGy IV CONTRAST USED: None. SCREENING VISIT: First visit COMPARISON: None. TECHNIQUE: Low dose computed tomography scan was performed through the chest at 1 millimeter thick se ctions and reconstructed images in the coronal plane at [address] DIAGNOSTIC QUALITY: Satisfactory FINDINGS: LUNG NODULES: Right lun.1 mm nodule right upper lobe medially image 47. Left lun.3 mm pleural-based nodule left lower lobe image 167. LUNGS: COPD: Severity: Mild Fibrosis: Severity: Mild Lymph nodes: None Other findings: None RIGHT PLEURAL SPACE: Effusion: None Calcification: None Thickening: None Pneumothorax: None LEFT PLEURAL SPACE: Effusion: None Calcification: None Thickening: None Pneumothorax: None HEART: Heart Size: Mildly enlarged Coronary calcification: Mild Pericardial effusion: None OTHER FINDINGS: Upper abdomen: Small hiatal hernia. Bony thorax: Degenerative changes Supraclavicular region: No significant abnormalityOther: No significant abnormalityI IMPRESSION: 1. Mild COPD with the scattered subpleural fibrosis. 2. Probably benign pulmonary nodules. Six-month follow-up advised. FOLLOW UP CT CHEST RECOMMENDATION: 6 month follow-up CT LUNG RAD: Probably benign LUNG RAD CATEGORY 3
== END ==
LOC: RADCTMAIN 13:47
PROVIDERS: ATTEND Family Medicine
DX: Z12.2 Encounter for screening for malignant neoplasm of respiratory organs (principal); J44.9 Chronic obstructive pulmonary disease, unspecified; J84.10 Pulmonary fibrosis, unspecified; Z87.891 Personal history of nicotine dependence

== ENCOUNTER → 2018-05-18 | Outpatient (CLI) | payer MEDICARE, OTHER ==
--- NOTE | 2018-05-20 07:49 | MM ---
Reason for exam: screening (asymptomatic). Last mammogram was performed 1 year and 4 months ago. History: Patient is postmenopausal. Family history of breast cancer in maternal aunt and breast cancer in 2 sisters. Physical Findings: A clinical breast exam by your physician is recommended on an annual basis and results should be correlated with mammographic findings. MG 3D Screening Mammo W/Cad Bilateral CC and MLO view(s) were taken. Prior study comparison: January 07, 2017, bilateral MG screening mammo w CAD. January 08, 2011, [facility] DIGITAL RIGHT MAMMOGRAM w/CAD. The breast tissue is heterogeneously dense. This may lower the sensitivity of mammography. There is chronic nodularity in the right breast. No significant changes when compared with prior studies. ASSESSMENT: Benign, BI-RAD 2 RECOMMENDATION: Routine screening mammogram of both breasts in 1 year.
== END | disposition home or self-care (01) ==
LOC: RADMAMWWP 09:06
PROVIDERS: ATTEND Family Medicine
DX: Z12.31 Encounter for screening mammogram for malignant neoplasm of breast (principal); Z80.3 Family history of malignant neoplasm of breast
CPT/HCPCS: 77063; 77067

== ENCOUNTER 2018-05-25 10:16 | Emergency (ER) | payer MEDICARE, OTHER ==
[2018-05-25 10:24] VITALS: RESP 18; TEMP 97.7
--- NOTE | 2018-05-25 10:52 | ED ---
General Adult HPI - General Chief complaint: Extremity Injury, Lower Stated complaint: post op pain Time Seen by Provider: 05/25/18 10:32 Source: patient, RN notes reviewed Mode of arrival: wheelchair Limitations: no limitations - History of Present Illness Initial comments: Patient is a pleasant 63-year-old female presenting to the emergency department with complaints of foot pain. Patient did have extensive surgery on her left foot and lower leg approximately 3 months ago. Patient is still in a cast. Patient states this is her third cast now. Patient states this morning while stepping down she had sudden discomfort of the inner portion of her left foot. Patient states this does radiate all the way up her leg towards the back. Patient states discomfort is positional. Discomfort is greatly increased with ambulation. No history of discomfort in this area previously. No leg swelling. - Related Data Home Medications Medication Instructions Recorded Confirmed Primidone [Mysoline] 250 mg PO DAILY 04/09/15 05/25/18 Umeclidinium Brm/Vilanterol Tr 1 puff INHALATION RT-DAILY 04/09/15 05/25/18 [Anoro Ellipta 62.5-25 Mcg INH] Esomeprazole Magnesium [NexIUM] 40 mg PO DAILY 04/23/15 05/25/18 amLODIPine [Norvasc] 10 mg PO DAILY 04/23/15 05/25/18 Albuterol Inhaler [Ventolin Hfa 2 puff INHALATION RT-Q4H PRN 09/15/16 05/25/18 Inhaler] Aspirin [Adult Low Dose Aspirin EC] 81 mg PO DAILY 09/15/16 05/25/18 Gabapentin [Neurontin] 600 mg PO QID 09/21/16 05/25/18 HYDROcodone/APAP 10-325MG [[place] 1 tab PO QID PRN 09/21/16 05/25/18 10-325] ALPRAZolam [Xanax] 0.5 mg PO DAILY 04/12/17 05/25/18 Fluticasone Nasal [place] [Flonase 1 spray EA NOSTRIL BID 04/12/17 05/25/18 Nasal [place]] PARoxetine [Paxil] 20 mg PO DAILY 04/12/17 05/25/18 Ibuprofen [Motrin] 800 mg PO TID PRN 09/28/17 05/25/18 ARIPiprazole [Abilify] 5 mg PO DAILY 05/25/18 05/25/18 Nicotine 21Mg/24Hr Patch [Habitrol 1 patch TRANSDERM DAILY 05/25/18 05/25/18 21Mg/24Hr Patch] rOPINIRole HCL [Requip] 2 mg PO HS 05/25/18 05/25/18 Allergies Allergy/AdvReac Type Severity Reaction Status Date / Time Cwvfsav-Mtx-Tmc Reductase AdvReac Myalgia Verified 05/25/18 10:42 Inhibitor varenicline [From Chantix] AdvReac Nightmares Verified 05/25/18 10:42 Review of Systems ROS Statement: Those systems with pertinent positive or pertinent negative responses have been documented in the HPI. ROS Other: All systems not noted in ROS Statement are negative. Constitutional: Denies: fever Eyes: Denies: eye pain ENT: Denies: ear pain Respiratory: Denies: cough Cardiovascular: Denies: chest pain Endocrine: Denies: fatigue Gastrointestinal: Denies: abdominal pain Genitourinary: Denies: dysuria Musculoskeletal: Reports: back pain Skin: Denies: rash Neurological: Denies: weakness Past Medical History Past Medical History: Asthma, COPD, GERD/Reflux, Hypertension, Osteoarthritis ( OA) Additional Past Medical History / Comment(s): hand tremors, hepatitis c History of Any Multi-Drug Resistant Organisms: None Reported Past Surgical History: Back Surgery, Cholecystectomy, Joint Replacement, Orthopedic Surgery, Tubal Ligation Additional Past Surgical History / Comment(s): BACK FUSION, cervical fusion, left ANKLE SURGERY, left knee arthoscopy, TOTAL RIGHT HIP Past Anesthesia/Blood Transfusion Reactions: No Reported Reaction Past Psychological History: Anxiety, Depression Smoking Status: Former smoker Past Alcohol Use History: Rare Past Drug Use History: Marijuana - Past Family History Mother Family Medical History: Deep Vein Thrombosis (DVT) Sister(s) Family Medical History: Cancer General Exam Limitations: no limitations General appearance: alert, in no apparent distress Head exam: Present: atraumatic Eye exam: Present: normal appearance Neck exam: Present: normal inspection Respiratory exam: Present: normal lung sounds bilaterally Cardiovascular Exam: Present: regular rate, normal rhythm GI/Abdominal exam: Present: soft. Absent: tenderness Extremities exam: Present: other (Patient does have a cast a few inches below the knee to the toes. No tenderness of the leg of the palpated area. Cap refill of the toes less than 2 seconds. Sensation is intact. Patient fully able to move toes.). Absent: calf tenderness Back exam: Present: tenderness (Mild discomfort lumbar region.) Neurological exam: Present: alert. Absent: motor sensory deficit Psychiatric exam: Present: normal affect, normal mood Skin exam: Present: normal color Course Vital Signs 05/25/18 10:21 Temperature 97.7 F Pulse Rate 66 Respiratory 18 Rate Blood Pressure 131/74 O2 Sat by Pulse 97 Oximetry Medical Decision Making - Medical Decision Making Patient reexamined and updated. Patient updated on suspicions for probable minimal movement and associated nerve discomfort because of this. Patient advised to consider removing cast to further evaluate the area however does not want cast removed. Patient is agreeable to follow-up with her orthopedic surgeon. Patient is advised to call today and do sooner follow-up than her planned appointment next week. Patient is also advised if she cannot follow-up sooner that she could consider going to the emergency department where her orthopedic surgeon, Dr. Marques works out of at [facility]. Patient does request pain shot prior to discharge. - Radiology Data Radiology results: image reviewed (Lumbar spine x-ray shows stable grade 1 anterolisthesis L5-S1. X-ray left foot and ankle shows postsurgical changes. Chronic appearing deformity of the talar body. Proximal migration of the talar head and neck and incomplete cc in with the tibia. Sclerosis along the subpatellar joint in the posterior aspect of the talar joint suggesting some bony bridging. First MTP joint osteoarthritis with bunion formation. Osteopenia.) Disposition Clinical Impression: Left foot pain Disposition: HOME SELF-CARE Condition: Stable Instructions: Arthralgia (ED) Additional Instructions: Please call your orthopedic surgeon today for follow-up in the next day or 2. Return for swelling, fever, loss of sensation, toe discoloration, weakness, worsening symptoms or other concerns Is patient prescribed a controlled substance at d/c from ED?: No Referrals: Shravan Carmona MD [Primary Care Provider] - 1-2 days Chuy Marques MD [REFERRING] - 1-2 days Time of Disposition: 12:18
--- NOTE | 2018-05-25 11:53 | XR ---
EXAMINATION TYPE: XR lumbar spine 3V, XR foot complete 3 views LT, XR ankle complete 3 views LT DATE OF EXAM: 05/25/2018 COMPARISON: NONE HISTORY: 63-year-old female with pain after twisting injury FINDINGS: Lumbar spine: There is grade 1 anterolisthesis at L5-S1 which appear similar to 2013. Hypertrophic facet arthropath y mid to lower lumbar spine. Mild multilevel degenerative disc disease. Vertebral body heights are pr eserved. Scattered endplate spondylosis especially at the thoracolumbar junction and upper lumbar spi ne. Left ankle and foot: Postsurgical changes with resection of the distal fibula. Additional postsurgical changes of hindfoot and tubular talar joint surgical arthrodesis with retrograde intramedullary nailing and 2 interlocki ng screws at either end. Multiple cannulated screws are present along the hindfoot as well. Overlying fiberglass cast makes assessment of fine osseous detail is limited. The body of the talus appears di minutive. There is proximal migration of the talar head and neck along the anterior aspect of the dis gavino tibia. A cannulated screw bridges this area but there is persistent lucency here. Prominent scler osis along the subtalar joint and posterior aspect of the tibiotalar joint. Irregularity of the dista l tibia could be posttraumatic or postsurgical basis. Moderate to severe degenerative change at the first MTP joint with mild hallux valgus and bunion. Aga in, overlying fiberglass cast limits assessment of fine osseous detail. IMPRESSION: Lumbar spine: 1. Stable grade 1 anterolisthesis at L5-S1. This could be on a degenerative basis or could be seconda ry to pars defects. No vertebral compression collapse. Left ankle and foot: 1. Status post surgical arthrodesis across the tibiotalar joint and hindfoot. Chronic-appearing bony deformity of the talar body. There is proximal migration of the talar head and neck and incomplete os seous union with the tibia. The hardware itself appears uncomplicated. 2. Prominent sclerosis along the subtalar joint and posterior aspect of the tibiotalar joint suggest some bony bridging here. 3. First MTP joint OA with bunion formation. Osteopenia. Overlying fiberglass cast limits fine osseou s detail.
[2018-05-25] MEDS ORDERED: MORPHINE SULFATE 4 MG/ML SYRINGE IM STA (12:19)
[2018-05-25] MEDS ORDERED: KETOROLAC 60 MG/2 ML VIAL IM STA (12:19)
[2018-05-25 13:08] VITALS: BP 144/68; PULSE 67
== END 2018-05-25 13:07 | disposition home or self-care (01) ==
LOC: EC 10:16
DX: M79.672 Pain in left foot (principal); J44.9 Chronic obstructive pulmonary disease, unspecified; K21.9 Gastro-esophageal reflux disease without esophagitis; I10 Essential (primary) hypertension; M19.90 Unspecified osteoarthritis, unspecified site; F41.9 Anxiety disorder, unspecified; F32.9 Major depressive disorder, single episode, unspecified; Z98.890 Other specified postprocedural states; Z96.641 Presence of right artificial hip joint; Z87.891 Personal history of nicotine dependence; Z79.82 Long term (current) use of aspirin; Z79.51 Long term (current) use of inhaled steroids; Z79.899 Other long term (current) drug therapy; Z88.8 Allergy status to other drugs, medicaments and biological substances
CPT/HCPCS: 72100; 73610; 73630; 99283; 96372 ×2; J2270; J1885

== ENCOUNTER 2019-03-22 10:31 | Emergency (ER) | payer MEDICARE, OTHER ==
[2019-03-22 10:44] VITALS: BP 128/63; PULSE 75; RESP 18; TEMP 98.4
--- NOTE | 2019-03-22 11:23 | ED ---
General Adult HPI - General Chief complaint: Recheck/Abnormal Lab/Rx Stated complaint: med refill Time Seen by Provider: 03/22/19 10:45 Source: patient, RN notes reviewed Mode of arrival: ambulatory Limitations: no limitations - History of Present Illness Initial comments: 64-year-old female presents to the emergency department for a chief complaint of medication refill. Patient states she recently moved from [place] a month ago. States that her Medicaid has not changed to [place] so she cannot see her primary care provider here until mid April. States that she has all her usual daily medications filled at this time however does not have her Xanax or gabapentin filled. Patient states she has been without this for about 3 weeks. States that her anxiety is very high at this time because of the move. States that gabapentin is the only thing that helps her foot pain.Patient has no other complaints at this time including shortness of breath, chest pain, abdominal pain, nausea or vomiting, headache, or visual changes. - Related Data Home Medications Medication Instructions Recorded Confirmed Primidone [Mysoline] 250 mg PO BID 04/09/15 03/22/19 Umeclidinium Brm/Vilanterol Tr 1 puff INHALATION RT-DAILY 04/09/15 03/22/19 [Anoro Ellipta 62.5-25 Mcg INH] Esomeprazole Magnesium [NexIUM] 40 mg PO DAILY 04/23/15 03/22/19 amLODIPine [Norvasc] 10 mg PO DAILY 04/23/15 03/22/19 Albuterol Inhaler [Ventolin Hfa 2 puff INHALATION RT-Q4H PRN 09/15/16 03/22/19 Inhaler] Gabapentin [Neurontin] 600 mg PO QID 09/21/16 03/22/19 ALPRAZolam [Xanax] 0.5 mg PO DAILY 04/12/17 03/22/19 PARoxetine [Paxil] 20 mg PO DAILY 04/12/17 03/22/19 Ibuprofen [Motrin] 800 mg PO TID PRN 09/28/17 03/22/19 ARIPiprazole [Abilify] 5 mg PO DAILY 05/25/18 03/22/19 rOPINIRole HCL [Requip] 2 mg PO HS 05/25/18 03/22/19 Multivitamins, Thera [Multivitamin 1 tab PO DAILY 03/22/19 03/22/19 (formulary)] Naproxen 500 mg PO BID 03/22/19 03/22/19 Previous Rx's Medication Instructions Recorded ALPRAZolam [Xanax] 0.5 mg PO TID PRN 3 Days #9 tab 03/22/19 Gabapentin 600 mg PO Q8H PRN 3 Days tab 03/22/19 Naproxen 500 mg PO BID PRN #30 tablet 03/22/19 Allergies Allergy/AdvReac Type Severity Reaction Status Date / Time [id number]-Lpf Reductase AdvReac Myalgia Verified 03/22/19 11:00 Inhibitor varenicline [From Chantix] AdvReac Nightmares Verified 03/22/19 11:00 Review of Systems ROS Statement: Those systems with pertinent positive or pertinent negative responses have been documented in the HPI. ROS Other: All systems not noted in ROS Statement are negative. Past Medical History Past Medical History: Asthma, COPD, GERD/Reflux, Hypertension, Osteoarthritis (OA) Additional Past Medical History / Comment(s): hand tremors, hepatitis c History of Any Multi-Drug Resistant Organisms: None Reported Past Surgical History: Back Surgery, Cholecystectomy, Joint Replacement, Orthopedic Surgery, Tubal Ligation Additional Past Surgical History / Comment(s): BACK FUSION, cervical fusion, left ANKLE SURGERY, left knee arthoscopy, TOTAL RIGHT HIP Past Anesthesia/Blood Transfusion Reactions: No Reported Reaction Past Psychological History: Anxiety, Depression Smoking Status: Former smoker Past Alcohol Use History: Rare Past Drug Use History: Marijuana - Past Family History Mother Family Medical History: Deep Vein Thrombosis (DVT) Sister(s) Family Medical History: Cancer General Exam Limitations: no limitations General appearance: alert, in no apparent distress Head exam: Present: atraumatic, normocephalic, normal inspection Eye exam: Present: normal appearance, PERRL, EOMI. Absent: scleral icterus, conjunctival injection, periorbital swelling ENT exam: Present: normal exam, mucous membranes moist Neck exam: Present: normal inspection, full ROM. Absent: tenderness, meningismus, lymphadenopathy Respiratory exam: Present: normal lung sounds bilaterally. Absent: respiratory distress, wheezes, rales, rhonchi, stridor Cardiovascular Exam: Present: regular rate, normal rhythm, normal heart sounds. Absent: systolic murmur, diastolic murmur, rubs, gallop, clicks GI/Abdominal exam: Present: soft, normal bowel sounds. Absent: distended, tenderness, guarding, rebound, rigid Extremities exam: Present: full ROM Neurological exam: Present: alert, oriented X3, CN II-XII intact Psychiatric exam: Present: normal affect, normal mood Course Vital Signs 03/22/19 10:39 Temperature 98.4 F Pulse Rate 75 Respiratory 18 Rate Blood Pressure 128/63 O2 Sat by Pulse 95 Oximetry Medical Decision Making - Medical Decision Making 64-year-old female presents for medication refill. Patient states that she moved from [place] and has all her other daily medications refilled but does not have refills on Xanax or gabapentin. States this is the only thing that helps with her chronic foot pain and anxiety. Discussed with patient that I am able to refill a 3 day's worth through the emergency department but will not be able to fill further refills through the ER. Patient will have the follow-up with her primary care provider and use these sparingly over the next month. Patient does agree with this, states her appointment is already scheduled for April. Disposition Clinical Impression: Encounter for medication refill Disposition: HOME SELF-CARE Condition: Good Instructions (If sedation given, give patient instructions): Medicine Refill (ED) Additional Instructions: Please follow up with primary care in 1-2 days. Please return here to the emergency department if you have any worsening symptoms. Prescriptions: Gabapentin 600 mg PO Q8H PRN 3 Days tab PRN Reason: Pain Naproxen 500 mg PO BID PRN #30 tablet PRN Reason: Pain ALPRAZolam [Xanax] 0.5 mg PO TID PRN 3 Days #9 tab PRN Reason: Anxiety Is patient prescribed a controlled substance at d/c from ED?: No Referrals: Lucrecia Matute MD [REFERRING] - 1-2 days Time of Disposition: 11:16
== END 2019-03-22 11:35 | disposition home or self-care (01) ==
LOC: EC 10:31
DX: Z76.0 Encounter for issue of repeat prescription (principal); M79.673 Pain in unspecified foot; J44.9 Chronic obstructive pulmonary disease, unspecified; K21.9 Gastro-esophageal reflux disease without esophagitis; I10 Essential (primary) hypertension; M19.90 Unspecified osteoarthritis, unspecified site; F32.9 Major depressive disorder, single episode, unspecified; F41.9 Anxiety disorder, unspecified; Z87.891 Personal history of nicotine dependence; Z86.19 Personal history of other infectious and parasitic diseases; Z79.51 Long term (current) use of inhaled steroids; Z79.1 Long term (current) use of non-steroidal anti-inflammatories (NSAID); Z79.899 Other long term (current) drug therapy; Z88.8 Allergy status to other drugs, medicaments and biological substances; Z96.641 Presence of right artificial hip joint
CPT/HCPCS: 99281

== ENCOUNTER 2019-05-27 11:26 | Emergency (ER) | payer MEDICARE, OTHER ==
--- NOTE | 2019-05-27 11:55 | ED ---
General Adult HPI - General Stated complaint: Poss pneumonia, chest pain Time Seen by Provider: 05/27/19 11:36 Source: patient, RN notes reviewed, old records reviewed - History of Present Illness Initial comments: Chief complaint and history of present illness this is a 64-year-old female presents emergency room with a request for antibiotics aren't pneumonia diagnosed by chest x-ray at the [facility]. Patient reports every she received a telephone call yesterday told telling her that she had pneumonia on chest x-ray. The patient reports she had a productive cough without fever. She is a smoker she reports she stopping her smoking. - Related Data Home Medications Medication Instructions Recorded Confirmed Primidone [Mysoline] 250 mg PO BID 04/09/15 03/22/19 Umeclidinium Brm/Vilanterol Tr 1 puff INHALATION RT-DAILY 04/09/15 03/22/19 [Anoro Ellipta 62.5-25 Mcg INH] Esomeprazole Magnesium [NexIUM] 40 mg PO DAILY 04/23/15 03/22/19 amLODIPine [Norvasc] 10 mg PO DAILY 04/23/15 03/22/19 Albuterol Inhaler [Ventolin Hfa 2 puff INHALATION RT-Q4H PRN 09/15/16 03/22/19 Inhaler] Gabapentin [Neurontin] 600 mg PO QID 09/21/16 03/22/19 ALPRAZolam [Xanax] 0.5 mg PO DAILY 04/12/17 03/22/19 PARoxetine [Paxil] 20 mg PO DAILY 04/12/17 03/22/19 Ibuprofen [Motrin] 800 mg PO TID PRN 09/28/17 03/22/19 ARIPiprazole [Abilify] 5 mg PO DAILY 05/25/18 03/22/19 rOPINIRole HCL [Requip] 2 mg PO HS 05/25/18 03/22/19 Multivitamins, Thera [Multivitamin 1 tab PO DAILY 03/22/19 03/22/19 (formulary)] Naproxen 500 mg PO BID 03/22/19 03/22/19 Previous Rx's Medication Instructions Recorded ALPRAZolam [Xanax] 0.5 mg PO TID PRN 3 Days #9 tab 03/22/19 Gabapentin 600 mg PO Q8H PRN 3 Days tab 03/22/19 Naproxen 500 mg PO BID PRN #30 tablet 03/22/19 Azithromycin [Zithromax Z-pack] 250 mg PO DIRECTED #6 tab 05/27/19 Allergies Allergy/AdvReac Type Severity Reaction Status Date / Time Pypkwhg-Uxt-Hvu Reductase AdvReac Myalgia Verified 05/27/19 11:52 Inhibitor varenicline [From Chantix] AdvReac Nightmares Verified 05/27/19 11:52 Review of Systems ROS Statement: Those systems with pertinent positive or pertinent negative responses have been documented in the HPI. Review of systems. The patient denies any headache no sore throat no chest pain or shortness of breath this time. She does have a cough occasionally productive. No chest pain or upset stomach no neuro deficits. All systems are reviewed. Past medical problems significant for asthma COPD. She does use medications for this. She continues smoke 10 cigarettes per day which she says she's been stopped today. Past history includes GERD, hypertension osteoarthritis and hand tremors. Chart mentions hepatitis C in the past patient denies this. The patient's surgeries include lumbar fusion, cervical fusion, recent right thumb joint surgery. Cholecystectomy, tubal ligation and left ankle silva and clamp. Family history 2 sisters with breast cancer. The patient reports she hasn't her routine breast mammograms and was scheduled in the near future. Patient reports she smokes 10 cigarettes today but she stopping today. Patient reports she rarely drinks alcohol. ROS Other: All systems not noted in ROS Statement are negative. Past Medical History Past Medical History: Asthma, COPD, GERD/Reflux, Hypertension, Osteoarthritis (OA) Additional Past Medical History / Comment(s): hand tremors, hepatitis c History of Any Multi-Drug Resistant Organisms: None Reported Past Surgical History: Back Surgery, Cholecystectomy, Joint Replacement, Orthopedic Surgery, Tubal Ligation Additional Past Surgical History / Comment(s): BACK FUSION, cervical fusion, left ANKLE SURGERY, left knee arthoscopy, TOTAL RIGHT HIP Past Anesthesia/Blood Transfusion Reactions: No Reported Reaction Past Psychological History: Anxiety, Depression Smoking Status: Former smoker Past Alcohol Use History: Rare Past Drug Use History: Marijuana - Past Family History Mother Family Medical History: Deep Vein Thrombosis (DVT) Sister(s) Family Medical History: Cancer General Exam - General Exam Comments Initial Comments: General: The patient is awake and alert, in no distress, and does not appear acutely ill. Here requesting antibiotic because of the chest x-ray diagnosed pneumonia at the [facility]. The patient did not want to wait several days to the clinic to reopen. Vital signs shows temperature afebrile, pulse 82 respiratory rate 18 pulse ox 94% room air blood pressure 139/91. Eye: Pupils are equal, round and reactive to light, extra-ocular movements are intact; there is normal conjunctiva bilaterally. No signs of icterus. Ears, nose, mouth and throat: There are moist mucous membranes and no oral lesions. The patient is edentulous Neck: The neck is supple, there is no tenderness, no anterior cervical lymphadenopa thy. Cardiovascular: There is a regular rate and rhythm. No murmur, rub or gallop is appreciated. Respiratory: Lungs are clear to auscultation, respirations are non-labored, breath sounds are equal. No wheezes, stridor, rales, or rhonchi. Gastrointestinal: No abdominal pain no complaint of nausea vomiting or bowel habit changes. Back: Chronic aches and pains to her cervical and lumbar spine, past surgeries include cervical and lumbar fusion. Musculoskeletal: Right hand has a cast on secondary to having had recent joint surgery at the base of her thumb. No complaint of pain or infection at the site. Neurological: Denying any neuro deficits or weakness. Skin: Denying rash Psychiatric: Cooperative, Course Vital Signs 05/27/19 05/27/19 11:49 11:51 Temperature 98.5 F Pulse Rate 81 Respiratory 20 20 Rate Blood Pressure 139/91 O2 Sat by Pulse 96 Oximetry Medical Decision Making - Medical Decision Making Medical decision making; the patient is here with request to be started on antibiotics. Patient reports she [facility] and had chest x-ray done. She received a phone call from [facility] saying she had evidence of early pneumonia. Patient denies any fever at this time. She does have COPD and asthma and uses medications to control her breathing. Currently not having difficulty breathing. The patient was examined and a prescription for azithromycin was prescribed. She received her first dose in emergency room. Strongly advised to increase fluids, stop smoking and follow-up with [facility] clinic or emergency room as needed. Disposition Clinical Impression: Bronchitis Disposition: HOME SELF-CARE Condition: Fair Instructions (If sedation given, give patient instructions): Chronic Bronchitis (ED) Prescriptions: Azithromycin [Zithromax Z-pack] 250 mg PO DIRECTED #6 tab Is patient prescribed a controlled substance at d/c from ED?: No Referrals: Fina Mckenzie MD [Primary Care Provider] - 1-2 days Time of Disposition: 11:59
[2019-05-27] MEDS ORDERED: AZITHROMYCIN 250 MG TAB PO STA (11:56)
[2019-05-27 12:04] VITALS: BP 139/91; PULSE 81; RESP 20; TEMP 98.5
== END 2019-05-27 12:10 | disposition home or self-care (01) ==
LOC: EC 11:26
DX: J40 Bronchitis, not specified as acute or chronic (principal); G89.29 Other chronic pain; M54.2 Cervicalgia; M54.5 Low back pain; J44.9 Chronic obstructive pulmonary disease, unspecified; K21.9 Gastro-esophageal reflux disease without esophagitis; I10 Essential (primary) hypertension; M19.90 Unspecified osteoarthritis, unspecified site; F32.9 Major depressive disorder, single episode, unspecified; F41.9 Anxiety disorder, unspecified; F17.200 Nicotine dependence, unspecified, uncomplicated; Z88.8 Allergy status to other drugs, medicaments and biological substances; Z79.1 Long term (current) use of non-steroidal anti-inflammatories (NSAID); Z79.899 Other long term (current) drug therapy; Z96.641 Presence of right artificial hip joint; Z98.1 Arthrodesis status
CPT/HCPCS: 99285

== ENCOUNTER → 2019-07-24 | Outpatient (CLI) | payer MEDICARE, OTHER ==
[2019-07-24 16:42] LABS: Anisocytosis Slight; HCT 32.6 % (34.0-46.0); HGB 9.5 gm/dL (11.4-16.0); Hypochromasia Marked; MCH 19.4 pg (25.0-35.0); MCV 66.8 fL (80.0-100.0); Mean Platelet Volume 5.7; Microcytosis Marked; Platelet Count 158 k/uL (150-450); RBC 4.89 m/uL (3.80-5.40); RDW 18.1 % (11.5-15.5); WBC 7.3 k/uL (3.8-10.6)
[2019-07-24 16:50] LABS: INR 0.9 (<1.2); Prothrombin Time 9.8 sec (9.0-12.0)
[2019-07-25 01:08] LABS: African American GFR (CKD) 119.4 (60.0-200.0); Albumin 4.4 g/dL (3.80-4.90); Albumin/Globulin Ratio 2.32 (1.60-3.17); Anion Gap 10.1 mmol/L (4.00-12.00); Carbon Dioxide 26.9 mmol/L (21.6-31.8); Globulin 1.9 g/dL (1.6-3.3); Potassium 4.3 mmol/L (3.5-5.5); Total Bilirubin 0.2 mg/dL (0.2-1.2); Total Protein 6.3 g/dL (6.2-8.2)
[2019-07-25 19:03] LABS: Iron Saturation 3.08 (12.00-45.00)
== END ==
LOC: LABWHC1 16:03
PROVIDERS: ATTEND Physician Assistant
DX: Z01.812 Encounter for preprocedural laboratory examination (principal); D64.9 Anemia, unspecified
CPT/HCPCS: 36415; 80053; 83540; 83550; 85027; 85610

== ENCOUNTER → 2019-11-09 | Outpatient (CLI) | payer MEDICARE, OTHER ==
[2019-11-09 07:38] LABS: Anisocytosis Slight; Basophils % (A) 1 %; Eosinophils # (A) 0.2 k/uL (0-0.7); Eosinophils % (A) 3 %; HCT 35.2 % (34.0-46.0); HGB 10.5 gm/dL (11.4-16.0); Hypochromasia Marked; Lymphocytes # (A) 1.8 k/uL (1.0-4.8); Lymphocytes % (A) 35 %; MCH 21.5 pg (25.0-35.0); MCHC 29.9 g/dL (31.0-37.0); MCV 72.1 fL (80.0-100.0); Mean Platelet Volume 7.4; Microcytosis Marked; Monocytes # (A) 0.3 k/uL (0-1.0); Monocytes % (A) 6 %; Neutrophils # (A) 2.6 k/uL (1.3-7.7); Neutrophils % (A) 52 %; Platelet Count 184 k/uL (150-450); RBC 4.88 m/uL (3.80-5.40); RDW 19.8 % (11.5-15.5); WBC 5.1 k/uL (3.8-10.6)
[2019-11-09 13:06] LABS: African American GFR (CKD) 119.4 (60.0-200.0); Albumin 4.5 g/dL (3.80-4.90); Albumin/Globulin Ratio 2.25 (1.60-3.17); Anion Gap 6.7 mmol/L (4.00-12.00); Calcium 9.1 mg/dL (8.7-10.3); Carbon Dioxide 29.3 mmol/L (21.6-31.8); Chol/HDL Ratio 4.28; LDL Cholesterol,Calculated 145.2 mg/dL (0.0-131.0); Potassium 4.9 mmol/L (3.5-5.5); Total Bilirubin 0.2 mg/dL (0.2-1.2); Total Protein 6.5 g/dL (6.2-8.2); VLDL Calculation 28.8 mg/dL (5.00-40.00)
[2019-11-09 14:01] LABS: Hemoglobin A1C 5.4 % (4.0-6.0)
== END | disposition home or self-care (01) ==
LOC: LABWHC1 07:05
PROVIDERS: ATTEND Nurse Practitioner Family
DX: I10 Essential (primary) hypertension (principal); J43.8 Other emphysema; F41.1 Generalized anxiety disorder; Z79.899 Other long term (current) drug therapy
CPT/HCPCS: 36415; 80053; 80061; 82306; 83036; 84436; 84443; 84480; 85025

== ENCOUNTER → 2020-06-17 | Outpatient (CLI) | payer MEDICARE, OTHER ==
--- NOTE | 2020-06-19 10:51 | CT ---
EXAMINATION TYPE: CT angio head DATE OF EXAM: 06/17/2020 HISTORY: Follow up aneurysm. COMPARISON: [facility] MRA head 05/06/2020 CT DLP: 961.9 mGycm. Automated Exposure Control for Dose Reduction was Utilized. TECHNIQUE: CTA scan of the neck is performed with IV Contrast, patient injected with 100 mL of Isovu e 370, axial images are obtained, coronal and sagittal reformatted images are reviewed. Three-D recon structed images are created on an independent workstation and reviewed. Source images are reviewed. FINDINGS: There is a redemonstrated 1.4 mm eccentric saccular aneurysm of the proximal left anterior cerebral a rtery at the superior anterior aspect (9:14), unchanged from 05/06/2020 outside institution MRI/MRA br ain comparison. There is somewhat tortuous course of the right internal carotid artery. The internal carotid arteries bifurcate normally into A1 and M1 segments. A2 segments are normal. The anterior com municating artery is patent. The bilateral posterior communicating arteries are patent. Posterior cer ebral vasculature is unremarkable. The vertebrobasilar system is unremarkable. There is no evidence o f occlusion or significant stenosis. 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
== END | disposition home or self-care (01) ==
LOC: RADCTMAIN 10:41
PROVIDERS: ATTEND Neurological Surgery
DX: I67.1 Cerebral aneurysm, nonruptured (principal)
CPT/HCPCS: 70496; Q9967

== ENCOUNTER 2020-09-30 09:07 | Emergency (ER) | payer MEDICARE, OTHER ==
[2020-09-30 09:14] VITALS: TEMP 98.6
[2020-09-30] MEDS ORDERED: oxyCODONE-APAP 7.5-325MG 1 EACH TAB PO STA (09:25)
--- NOTE | 2020-09-30 09:27 | ED ---
General Adult HPI - General Chief complaint: Skin/Abscess/Foreign Body Stated complaint: lump on knee Time Seen by Provider: 09/30/20 09:09 Source: patient, EMS Mode of arrival: EMS Limitations: no limitations - History of Present Illness Initial comments: Dictation was produced using [employer] dictation software. please excuse any grammatical, word or spelling errors. This patient was cared for during a federal and state declared state of emergency secondary to Covid 19 Chief Complaint: 65-year-old male presents with 3 days of right knee pain History of Present Illness: 65-year-old female she presents today with 3 days of right knee pain. Patient states she had history of meniscal tear 4 years ago that was treated with arthroscopy. She felt like her symptoms are getting worse. She feels like the pain is causing her to use her walker more. Patient denies any fever, chills or night sweats. She states it does feel swollen. She called EMS and was brought to the emergency department. Patient has no other complaints at this time. The ROS documented in this emergency department record has been reviewed and confirmed by me. Those systems with pertinent positive or negative responses have been documented in the HPI. All other systems are other negative and/or noncontributory. PHYSICAL EXAM: General Impression: Alert and oriented x3, not in acute distress HEENT: Normocephalic atraumatic, extra-ocular movements intact, pupils equal and reactive to light bilaterally, mucous membranes moist. Cardiovascular: Heart regular rate and rhythm Chest: Able to complete full sentences, no retractions, no tachypnea Abdomen: abdomen soft, non-tender, non-distended, no organomegaly Musculoskeletal: Pulses present and equal in all extremities, no peripheral edema Right knee: Mild suprapatellar effusion, non-erythematous, passive range of motion intact Motor: no focal deficits noted Neurological: CN II-XII grossly intact, no focal motor or sensory deficits noted Skin: Intact with no visualized rashes Psych: Normal affect and mood ED course: 65-year-old male presents with atraumatic right knee pain for 3 days. Signs upon arrival are within acceptable limits. No concerns for septic arthritis at this time Knee x-ray shows mild narrowing of the joint compartment with small moderate suprapatellar joint effusion. Patient notified of her x-ray results. She is told to be weightbearing as tolerated. She is told to also follow up with orthopedic surgeon Dr. Aldana as soon as possible for outpatient management of knee symptoms. - Related Data Home Medications Medication Instructions Recorded Confirmed Primidone [Mysoline] 250 mg PO BID 04/09/15 03/22/19 Umeclidinium Brm/Vilanterol Tr 1 puff INHALATION RT-DAILY 04/09/15 03/22/19 [Anoro Ellipta 62.5-25 Mcg INH] Esomeprazole Magnesium [NexIUM] 40 mg PO DAILY 04/23/15 03/22/19 amLODIPine [Norvasc] 10 mg PO DAILY 04/23/15 03/22/19 Albuterol Inhaler (Mhu) [Ventolin 2 puff INHALATION RT-Q4H PRN 09/15/16 03/22/19 Hfa Inhaler (Mhu)] Gabapentin [Neurontin] 600 mg PO QID 09/21/16 03/22/19 ALPRAZolam [Xanax] 0.5 mg PO DAILY 04/12/17 03/22/19 PARoxetine [Paxil] 20 mg PO DAILY 04/12/17 03/22/19 Ibuprofen [Motrin] 800 mg PO TID PRN 09/28/17 03/22/19 ARIPiprazole [Abilify] 5 mg PO DAILY 05/25/18 03/22/19 rOPINIRole HCL [Requip] 2 mg PO HS 05/25/18 03/22/19 Multivitamins, Thera [Multivitamin 1 tab PO DAILY 03/22/19 03/22/19 (formulary)] Naproxen 500 mg PO BID 03/22/19 03/22/19 Previous Rx's Medication Instructions Recorded ALPRAZolam [Xanax] 0.5 mg PO TID PRN 3 Days #9 tab 03/22/19 Gabapentin 600 mg PO Q8H PRN 3 Days tab 03/22/19 Naproxen 500 mg PO BID PRN #30 tablet 03/22/19 Azithromycin [Zithromax Z-pack (6 250 mg PO DIRECTED #6 tab 05/27/19 tabs)] HYDROcodone/APAP 5-325MG [Ottertail 1 tab PO Q6HR PRN 3 Days #12 tab 09/30/20 5-325] Allergies Allergy/AdvReac Type Severity Reaction Status Date / Time Uuhsbio-Cxr-Yhy Reductase AdvReac Myalgia Verified 09/30/20 09:14 Inhibitor varenicline [From Chantix] AdvReac Nightmares Verified 09/30/20 09:14 Review of Systems ROS Statement: Those systems with pertinent positive or pertinent negative responses have been documented in the HPI. ROS Other: All systems not noted in ROS Statement are negative. Past Medical History Past Medical History: Asthma, COPD, GERD/Reflux, Hypertension, Osteoarthritis (OA) Additional Past Medical History / Comment(s): hand tremors, hepatitis c History of Any Multi-Drug Resistant Organisms: None Reported Past Surgical History: Back Surgery, Cholecystectomy, Joint Replacement, Orthopedic Surgery, Tubal Ligation Additional Past Surgical History / Comment(s): BACK FUSION, cervical fusion, left ANKLE SURGERY, left knee arthoscopy, TOTAL RIGHT HIP Past Anesthesia/Blood Transfusion Reactions: No Reported Reaction Past Psychological History: Anxiety, Depression Smoking Status: Current every day smoker Past Alcohol Use History: Rare Past Drug Use History: None Reported - Past Family History Mother Family Medical History: Deep Vein Thrombosis (DVT) Sister(s) Family Medical History: Cancer General Exam Limitations: no limitations Course Vital Signs 09/30/20 09:10 Temperature 98.6 F Pulse Rate 91 Respiratory 17 Rate Blood Pressure 141/76 O2 Sat by Pulse 97 Oximetry Disposition Clinical Impression: Knee pain Disposition: HOME SELF-CARE Condition: Good Instructions (If sedation given, give patient instructions): Knee Pain (ED) Prescriptions: HYDROcodone/APAP 5-325MG [Ottertail 5-325] 1 tab PO Q6HR PRN 3 Days #12 tab PRN Reason: Severe Pain Is patient prescribed a controlled substance at d/c from ED?: Yes If prescribed controlled substance>3 days was MAPS reviewed?: Prescribed <3 Days Referrals: Fabian Aldana DO [Doctor of Osteopathic Medicine] - 1-2 days Time of Disposition: 10:16
--- NOTE | 2020-09-30 09:55 | XR ---
EXAMINATION TYPE: XR knee complete RT DATE OF EXAM: 09/30/2020 CLINICAL HISTORY: pain TECHNIQUE: Three views of the right knee are obtained. COMPARISON: None. FINDINGS: There is no acute fracture/dislocation. The tri-compartment joint spaces appear mildly na rrowed. Small moderate suprapatellar joint effusion noted. IMPRESSION: There is no acute fracture or dislocation.ICD 10 NO FRACTURE, INITIAL EVALUATION
[2020-09-30 10:52] VITALS: BP 116/71; PULSE 78; RESP 16
== END 2020-09-30 10:55 | disposition home or self-care (01) ==
LOC: EC 09:07
DX: M25.462 Effusion, left knee (principal); M25.862 Other specified joint disorders, left knee; F17.200 Nicotine dependence, unspecified, uncomplicated; J44.9 Chronic obstructive pulmonary disease, unspecified; K21.9 Gastro-esophageal reflux disease without esophagitis; I10 Essential (primary) hypertension; M19.90 Unspecified osteoarthritis, unspecified site; F41.9 Anxiety disorder, unspecified; F32.9 Major depressive disorder, single episode, unspecified; Z79.1 Long term (current) use of non-steroidal anti-inflammatories (NSAID); Z79.899 Other long term (current) drug therapy; Z88.8 Allergy status to other drugs, medicaments and biological substances; Z98.1 Arthrodesis status; Z96.641 Presence of right artificial hip joint; Z90.49 Acquired absence of other specified parts of digestive tract
CPT/HCPCS: 99283

== ENCOUNTER 2021-02-03 11:59 | Observation (INO) | payer MEDICARE, OTHER ==
[2021-02-03] MEDS ORDERED: NITROGLYCERIN OINT 1 INCH/GM PACKET TOPICAL STA (12:19)
[2021-02-03] MEDS ORDERED: ASPIRIN 81 MG PO STA (12:19)
--- NOTE | 2021-02-03 12:21 | ED ---
General Adult HPI - General Chief complaint: Chest Pain Stated complaint: chest pain Time Seen by Provider: 02/03/21 12:00 Source: patient, EMS, RN notes reviewed, old records reviewed Mode of arrival: EMS Limitations: no limitations - History of Present Illness Initial comments: This is a 65-year-old female who presents emergency department via EMS. Patient states she has high blood pressure has a strong family history of heart disease and continues to smoke. Patient states earlier today started having some left- sided chest pain that has progressively got worse throughout the day. Patient states it doesn't radiate anywhere and she has not been nauseated from it but she has had some shortness of breath and some episodes of feeling very hot. Patient states the pain still exists currently. Patient denies having had similar symptoms. Patient denies any recent fever chills or cough. Patient denies abdominal pain patient denies nausea vomiting diarrhea. Patient denies having taken any medications for this pain. Patient denies any swelling to the legs or calf tenderness. Patient denies abdominal pain patient denies any vomiting or diarrhea. - Related Data Home Medications Medication Instructions Recorded Confirmed Primidone [Mysoline] 250 mg PO BID 04/09/15 02/03/21 Esomeprazole Magnesium [NexIUM] 40 mg PO DAILY 04/23/15 02/03/21 amLODIPine [Norvasc] 10 mg PO DAILY 04/23/15 02/03/21 Ibuprofen [Motrin] 800 mg PO AC-TID PRN 09/28/17 02/03/21 ARIPiprazole [Abilify] 5 mg PO DAILY 05/25/18 02/03/21 Albuterol Inhaler [Ventolin Hfa 2 puff INHALATION RT-Q6H PRN 02/03/21 02/03/21 Inhaler] Ferrous Sulfate [Feosol] 325 mg PO DAILY 02/03/21 02/03/21 Fluticasone/Umeclidin/Vilanter 1 puff INHALATION RT-DAILY 02/03/21 02/03/21 [Trelegy Ellipta 100-62.5-25] HYDROcodone/APAP 7.5-325MG [[place] 1 tab PO TID PRN 02/03/21 02/03/21 7.5-325] Montelukast [Singulair] 10 mg PO DAILY 02/03/21 02/03/21 Oxybutynin Chloride [Ditropan] 5 mg PO DAILY 02/03/21 02/03/21 PARoxetine HCL [Paxil] 30 mg PO DAILY 02/03/21 02/03/21 rOPINIRole HCL [Requip] 0.5 mg PO HS 02/03/21 02/03/21 Allergies Allergy/AdvReac Type Severity Reaction Status Date / Time Tyfbjpf-Ohl-Xqh Reductase AdvReac Myalgia Verified 02/03/21 13:46 Inhibitor varenicline [From Chantix] AdvReac Nightmares Verified 02/03/21 13:46 Review of Systems ROS Statement: Those systems with pertinent positive or pertinent negative responses have been documented in the HPI. ROS Other: All systems not noted in ROS Statement are negative. Past Medical History Past Medical History: Asthma, COPD, GERD/Reflux, Hypertension, Osteoarthritis (OA) Additional Past Medical History / Comment(s): hand tremors, hepatitis c History of Any Multi-Drug Resistant Organisms: None Reported Past Surgical History: Back Surgery, Cholecystectomy, Joint Replacement, Orthopedic Surgery, Tubal Ligation Additional Past Surgical History / Comment(s): BACK FUSION, cervical fusion, left ANKLE SURGERY, left knee arthoscopy, TOTAL RIGHT HIP Past Anesthesia/Blood Transfusion Reactions: No Reported Reaction Past Psychological History: Anxiety, Depression Smoking Status: Current every day smoker Past Alcohol Use History: Rare Past Drug Use History: None Reported - Past Family History Mother Family Medical History: Deep Vein Thrombosis (DVT) Sister(s) Family Medical History: Cancer General Exam - General Exam Comments Initial Comments: GENERAL: Patient is well-developed and well-nourished. Patient is nontoxic and well- hydrated and is in no acute distress. ENT: Neck is soft and supple. No significant lymphadenopathy is noted. Oropharynx is clear. Moist mucous membranes. Neck has full range of motion without eliciting any pain. EYES: The sclera were anicteric and conjunctiva were pink and moist. Extraocular movements were intact and pupils were equal round and reactive to light. Eyelids were unremarkable. PULMONARY: Unlabored respirations. Good breath sounds bilaterally. No audible rales rhonchi or wheezing was noted. CARDIOVASCULAR: There is a regular rate and rhythm without any murmurs gallops or rubs. ABDOMEN: Soft and nontender with normal bowel sounds. SKIN: Skin is clear with no lesions or rashes and otherwise unremarkable. NEUROLOGIC: Patient is alert and oriented x3. Cranial nerves II through XII are grossly intact. Motor and sensory are also intact. Normal speech, volume and content. Symmetrical smile. MUSCULOSKELETAL: Normal extremities with adequate strength and full range of motion. No lower extremity swelling or edema. No calf tenderness. LYMPHATICS: No significant lymphadenopathy is noted PSYCHIATRIC: Normal psychiatric evaluation. Limitations: no limitations Course Vital Signs 02/03/21 02/03/21 12:06 13:53 Temperature 99.2 F Pulse Rate 74 78 Respiratory 18 18 Rate Blood Pressure 113/87 130/68 O2 Sat by Pulse 97 95 Oximetry Medical Decision Making - Medical Decision Making EKG shows normal sinus rhythm at 70 bpm IA interval 146 QRS is 88 QT interval 428 QTC is 462. Patient's EKG shows no ST segment elevation or depression. Chest x-ray shows no acute abnormality. I started the patient heparin because the unstable angina picture. I spoke with the [facility] agreed to admit the patient admitted the patient remaining orders a heparin has been Nitropaste on the floor and I consult to cardiology. - Lab Data Result diagrams: 02/03/21 12:57 02/03/21 12:57 Lab Results 02/03/21 02/03/21 02/03/21 Range/Units 12:41 12:57 12:57 WBC 6.7 (3.8-10.6) k/uL RBC 4.99 (3.80-5.40) m/uL Hgb 10.1 L (11.4-16.0) gm/dL Hct 34.4 (34.0-46.0) % MCV 69.0 L (80.0-100.0) fL MCH 20.3 L (25.0-35.0) pg MCHC 29.4 L (31.0-37.0) g/dL RDW 19.1 H (11.5-15.5) % Plt Count 159 (150-450) k/uL MPV 7.3 Neutrophils % 57 % Lymphocytes % 30 % Monocytes % 7 % Eosinophils % 2 % Basophils % 1 % Neutrophils # 3.9 (1.3-7.7) k/uL Lymphocytes # 2.0 (1.0-4.8) k/uL Monocytes # 0.5 (0-1.0) k/uL Eosinophils # 0.2 (0-0.7) k/uL Basophils # 0.0 (0-0.2) k/uL Hypochromasia Marked Anisocytosis Slight Microcytosis Marked PT 10.0 (9.0-12.0) sec INR 0.9 (<1.2) APTT 23.6 (22.0-30.0) sec Sodium (137-145) mmol/L Potassium (3.5-5.1) mmol/L Chloride (98-107) mmol/L Carbon Dioxide (22-30) mmol/L Anion Gap mmol/L BUN (7-17) mg/dL Creatinine (0.52-1.04) mg/dL Est GFR (CKD-EPI)AfAm (>60 ml/min/1.73 sqM) Est GFR (CKD-EPI)NonAf (>60 ml/min/1.73 sqM) Glucose (74-99) mg/dL Calcium (8.4-10.2) mg/dL Magnesium (1.6-2.3) mg/dL Total Bilirubin (0.2-1.3) mg/dL AST (14-36) U/L ALT (4-34) U/L Alkaline Phosphatase (38-126) U/L Troponin I (0.000-0.034) ng/mL Total Protein (6.3-8.2) g/dL Albumin (3.5-5.0) g/dL Coronavirus (PCR) Not Detected (Not Detectd) 02/03/21 02/03/21 Range/Units 12:57 12:57 WBC (3.8-10.6) k/uL RBC (3.80-5.40) m/uL Hgb (11.4-16.0) gm/dL Hct (34.0-46.0) % MCV (80.0-100.0) fL MCH (25.0-35.0) pg MCHC (31.0-37.0) g/dL RDW (11.5-15.5) % Plt Count (150-450) k/uL MPV Neutrophils % % Lymphocytes % % Monocytes % % Eosinophils % % Basophils % % Neutrophils # (1.3-7.7) k/uL Lymphocytes # (1.0-4.8) k/uL Monocytes # (0-1.0) k/uL Eosinophils # (0-0.7) k/uL Basophils # (0-0.2) k/uL Hypochromasia Anisocytosis Microcytosis PT (9.0-12.0) sec INR (<1.2) APTT (22.0-30.0) sec Sodium 139 (137-145) mmol/L Potassium 4.0 (3.5-5.1) mmol/L Chloride 107 (98-107) mmol/L Carbon Dioxide 27 (22-30) mmol/L Anion Gap 5 mmol/L BUN 9 (7-17) mg/dL Creatinine 0.44 L (0.52-1.04) mg/dL Est GFR (CKD-EPI)AfAm >90 (>60 ml/min/1.73 sqM) Est GFR (CKD-EPI)NonAf >90 (>60 ml/min/1.73 sqM) Glucose 92 (74-99) mg/dL Calcium 9.1 (8.4-10.2) mg/dL Magnesium 2.0 (1.6-2.3) mg/dL Total Bilirubin 0.3 (0.2-1.3) mg/dL AST 27 (14-36) U/L ALT 19 (4-34) U/L Alkaline Phosphatase 117 (38-126) U/L Troponin I <0.012 (0.000-0.034) ng/mL Total Protein 6.6 (6.3-8.2) g/dL Albumin 4.0 (3.5-5.0) g/dL Coronavirus (PCR) (Not Detectd) Critical Care Time Critical Care Time: Yes Total Critical Care Time: 35 Disposition Clinical Impression: Unstable angina pectoris Disposition: ADMITTED IP TO THIS HOSP Referrals: Lucrecia Matute MD [Primary Care Provider] - 1-2 days Time of Disposition: 14:26
[2021-02-03 13:29] LABS: Anisocytosis Slight; Basophils % (A) 1 %; Eosinophils # (A) 0.2 k/uL (0-0.7); Eosinophils % (A) 2 %; HCT 34.4 % (34.0-46.0); HGB 10.1 gm/dL (11.4-16.0); Hypochromasia Marked; Lymphocytes % (A) 30 %; MCH 20.3 pg (25.0-35.0); MCHC 29.4 g/dL (31.0-37.0); Mean Platelet Volume 7.3; Microcytosis Marked; Monocytes # (A) 0.5 k/uL (0-1.0); Monocytes % (A) 7 %; Neutrophils # (A) 3.9 k/uL (1.3-7.7); Neutrophils % (A) 57 %; Platelet Count 159 k/uL (150-450); RBC 4.99 m/uL (3.80-5.40); RDW 19.1 % (11.5-15.5); WBC 6.7 k/uL (3.8-10.6)
--- NOTE | 2021-02-03 13:30 | XR ---
EXAMINATION TYPE: XR chest 2V DATE OF EXAM: 02/03/2021 COMPARISON: Chest x-ray 04/12/2017, CT 04/13/2018 HISTORY: Chest pain TECHNIQUE: Frontal and lateral views of the chest are obtained. FINDINGS: There is no pleural effusion, or pneumothorax seen. Patchy basilar density is present with in the lungs. There is some elevation of the left hemidiaphragm. The cardiac silhouette size is withi n normal limits. The osseous structures are stable, postop changes noted to the cervical spine. Pro minent lung volume may be indicative of underlying COPD. IMPRESSION: Correlate for basilar atelectasis or scarring, pneumonia not excluded, there is underlyi ng emphysema.
[2021-02-03 13:35] LABS: ALT 19 U/L (4-34); AST 27 U/L (14-36); African American GFR (CKD) >90 (>60 ml/min/1.73 sqM); Alkaline Phosphatase 117 U/L (38-126); Anion Gap 5 mmol/L; Blood Urea Nitrogen 9 mg/dL (7-17); Calcium 9.1 mg/dL (8.4-10.2); Carbon Dioxide 27 mmol/L (22-30); Chloride 107 mmol/L (98-107); Glucose 92 mg/dL (74-99); Non-African American GFR(CKD) >90 (>60 ml/min/1.73 sqM); Sodium 139 mmol/L (137-145); Total Bilirubin 0.3 mg/dL (0.2-1.3); Total Protein 6.6 g/dL (6.3-8.2)
[2021-02-03 13:37] LABS: INR 0.9 (<1.2); Partial Thromboplastin Time 23.6 sec (22.0-30.0)
[2021-02-03] MEDS ORDERED: HEPARIN SODIUM,PORCINE 5,000 UNIT/ML 1 ML VIAL IV STA (14:24)
[2021-02-03] MEDS ORDERED: NITROGLYCERIN SL TABS 0.4 MG TAB SUBLINGUAL PRN (14:26)
[2021-02-03] MEDS ORDERED: HEPARIN SOD,PORK IN 0.45% NACL 25,000 UNIT in 0.45% NACL 1 250ML.BAG IV SCH (14:30)
[2021-02-03] MEDS ORDERED: HEPARIN SODIUM 1,000 UN/ML (10ML VL) IV STA (14:34)
[2021-02-03] MEDS ORDERED: HYDROcodone/APAP 7.5-325MG 1 EACH TAB PO ONE (14:50)
[2021-02-03] MEDS: NITROGLYCERIN OINT 1 INCH/GM PACKET TOPICAL SCH (18:18)
[2021-02-03] MEDS ORDERED: HYDROcodone/APAP 7.5-325MG 1 EACH TAB PO PRN (18:48)
[2021-02-03] MEDS: HYDROmorphone 0.5 MG/0.5 ML SYRINGE IVP PRN (18:53)
[2021-02-03] MEDS ORDERED: IBUPROFEN 800 MG TAB PO PRN (19:52)
[2021-02-03] MEDS ORDERED: TEMAZEPAM 15 MG CAP PO PRN (19:54)
[2021-02-03] MEDS ORDERED: ALPRAZolam 0.25 MG TAB PO PRN (19:54)
[2021-02-03] MEDS: ALBUTEROL NEBULIZED 2.5 MG/3 ML INHALATION PRN (22:01)
--- NOTE | 2021-02-03 22:26 | HP ---
HISTORY AND PHYSICAL DATE OF SERVICE: 02/03/2021 CHIEF COMPLAINT: Chest pain. HISTORY OF PRESENT ILLNESS: This 65-year-old woman with a past medical history of multiple medical problems, including history of asthma, COPD, GERD, hypertension, history of DJD, history of back surgery, history of back fusion, being followed Dr. Matute in the outpatient setting, was complaining of chest pain. The patient had a stress test some time before which did not show any acute abnormality. The pain was mostly in the left side, but it got worse throughout the day. There was no radiation and no nausea, but the patient had some shortness of breath and was feeling hot, and the patient came to [facility] and was admitted for evaluation and treatment. Symptomatic treatment has been provided. Initial labs showed troponins are negative. Hemoglobin is 10.1. The D- dimer is not available. The chest x-ray, which was personally reviewed by me, showed some possibly bibasilar atelectasis. EKG, which was personally reviewed by me, showed some nonspecific ST-T changes. PAST MEDICAL HISTORY: History of asthma, COPD, GERD, hypertension, DJD. HOME MEDICATIONS: Requip, Norvasc, Mysoline, Paxil, Ditropan, Singulair, Motrin, Mcneal, Trelegy, iron sulfate, Nexium, Ventolin, Abilify. ALLERGIES: TETANUS AND CHANTIX. FAMILY HISTORY: History of DVT. SOCIAL HISTORY: Previous history of smoking. Occasional alcohol intake. REVIEW OF SYSTEMS: ENT: No diminished hearing. No diminished vision. CARDIOVASCULAR SYSTEM: As mentioned earlier. RESPIRATORY SYSTEM: As mentioned earlier. GI: No nausea, vomiting. : No dysuria or retention. NERVOUS SYSTEM: No numbness, weakness. ALLERGY/IMMUNOLOGY: As mentioned earlier. HEMATOLOGY/ONCOLOGY: No history of anemia. ENDOCRINE: No history of diabetes, hypothyroidism. CONSTITUTIONAL: As mentioned earlier. DERMATOLOGY: Negative. RHEUMATOLOGY: Negative. PSYCHIATRY: As mentioned earlier. PHYSICAL EXAMINATION: Patient alert and oriented x3. Pulse 75, blood pressure 131/82, respiration 18, temperature 99.2, pulse ox 98% on room air. HEENT: Conjunctivae normal. NECK: No jugular venous distention. CARDIOVASCULAR SYSTEM: S1, S2 muffled. RESPIRATORY SYSTEM: Breath sounds diminished at the bases. No rhonchi. No crackles. ABDOMEN: Soft, non-tender. No mass palpable. LEGS: No edema. No swelling. NERVOUS SYSTEM: Higher functions as mentioned earlier. Moves all 4 limbs. No focal motor or sensory deficit. LYMPHATICS: No lymph node palpable in neck, axillae or groin. SKIN: No ulcer, rash, bleeding. JOINTS: No active deforming arthropathy. LABS: WBC 6.6, hemoglobin 10.1, and creatinine is 0.44. ASSESSMENT: 1. Chest pain, possible unstable angina. 2. Anemia; microcytic anemia, undetermined etiology. 3. History of asthma, chronic obstructive pulmonary disease. 4. Gastroesophageal reflux disease. 5. Hypertension. 6. Bibasilar atelectasis. 7. Degenerative joint disease. 8. History of hand tremors. 9. History of hepatitis C. 10.History of cholecystectomy. 11.History of back fusion. 12.History of anxiety, depression. 13.History of nicotine dependence. 14.Obesity with body mass index of 34.4. RECOMMENDATIONS AND DISCUSSION: In this 65-year-old woman who presented with multiple complex medical issues, we will monitor the patient closely, continue the current medications, continue symptomatic treatment. Continue with IV heparin. Check D-dimer; if it is positive, I would recommend a CT angio of the chest. Otherwise, resume the home medications. Cardiology consultation. Prognosis guarded because of multiple complex medical issues. Further recommendations to follow. A copy of this dictation is being forwarded to Dr. Matute, who is the primary physician. MMTRISTONL / MANDON: [id number] /
[2021-02-03] MEDS: PRIMIDONE 250 MG TAB PO SCH (22:33)
[2021-02-03 22:40] LABS: D-Dimer 0.52 mg/L FEU (<0.60); Partial Thromboplastin Time 28.8 sec (22.0-30.0)
[2021-02-04] MEDS: NITROGLYCERIN OINT 1 INCH/GM PACKET TOPICAL SCH ×2 (00:08→05:32)
[2021-02-04] MEDS: HYDROmorphone 0.5 MG/0.5 ML SYRINGE IVP PRN ×2 (00:24→04:37)
[2021-02-04] MEDS ORDERED: HEPARIN SODIUM 1,000 UN/ML (10ML VL) IV ONE (01:49)
[2021-02-04] MEDS: ALBUTEROL NEBULIZED 2.5 MG/3 ML INHALATION PRN ×2 (05:47→11:57)
[2021-02-04] MEDS: IPRATROPIUM 0.5 MG/2.5 ML NEBU INHALATION SCH ×2 (05:47→11:57)
[2021-02-04] MEDS ORDERED: PANTOPRAZOLE 40 MG TABLET PO SCH (07:30)
[2021-02-04] MEDS ORDERED: SYMBICORT 80-4.5 MCG INHALER INHALATION SCH (08:00)
[2021-02-04] MEDS: PRIMIDONE 250 MG TAB PO SCH (08:06)
[2021-02-04 08:24] VITALS: BP 116/62; RESP 16; TEMP 97.9
[2021-02-04] MEDS ORDERED: FERROUS SULFATE 325 MG TAB PO SCH (09:00)
[2021-02-04] MEDS ORDERED: MONTELUKAST 10 MG TAB PO SCH (09:00)
[2021-02-04] MEDS ORDERED: amLODIPine 10 MG TAB PO SCH (09:00)
[2021-02-04] MEDS ORDERED: ASPIRIN 325 MG TAB PO SCH (09:00)
[2021-02-04] MEDS ORDERED: PARoxetine 10 MG TAB PO SCH (09:00)
[2021-02-04] MEDS ORDERED: OXYBUTYNIN CHLORIDE 5 MG TAB PO SCH (09:00)
[2021-02-04] MEDS ORDERED: ASPIRIN 81 MG PO SCH (09:00)
[2021-02-04] MEDS ORDERED: ARIPiprazole 5 MG TAB PO SCH (09:00)
--- NOTE | 2021-02-04 10:41 | P.CRDCN ---
History of Present Illness History of present illness: HISTORY OF PRESENTING ILLNESS This is a pleasant 65-year-old female past medical history significant for COPD, chronic nicotine dependence and hypertension. She has seen Dr. Chau last year for preoperative evaluation. At that time she underwent an echocardiogram revealing preserved LV systolic function with ejection fraction 55%. We have been asked to see in consultation for chest pain. She states she woke up yesterday hardhat the swollen sensation in the left anterior chest and left axillary region. The pain is exacerbated by deep breathing and coughing. She has some associated shortness of breath, no dizziness, palpitations, nausea, vomiting or diaphoresis. Most recent lexisan stress test from 2017 was negative for stress induced ischemia. DIAGNOSTICS EKG reveals sinus mechanism with nonspecific abnormalities in V1 consistent with previous EKGs. Telemetry tracings indicate sinus mechanism. Chest xray basilar atelectasis and underlying emphysema. Laboratory reviewed, d-dimer negative, troponins negative 3, WBC 6.7, hemoglobin 10.1, platelets 159, sodium 139, potassium 4.0, creatinine 0.44 and magnesium 2.0. Current cardiac medications include grams daily. REVIEW OF SYSTEMS At the time of my exam: CONSTITUTIONAL: Denies fever or chills. CARDIOVASCULAR: Complains of chest pain with breathing and shortness of breath. Denies orthopnea, PND or palpitations. RESPIRATORY: Denies cough. GASTROINTESTINAL: Denies abdominal pain, diarrhea, constipation, nausea or vomiting. MUSCULOSKELETAL: Denies myalgias. NEUROLOGIC: Denies numbness, tingling, headacbe or weakness. ENDOCRINE: Denies fatigue, weight change, polydipsia or polyurina. GENITOURINARY: Denies burning, hematuria or urgency with micturation. HEMATOLOGIC: Denies history of anemia or bleeding. PHYSICAL EXAMINATION Blood pressure 16/62 heart rate 65 afebrile and maintaining oxygen saturation on room air. CONSTITUTIONAL: No apparent distress. HEENT: Head is normocephalic. Pupils are equal, round. Sclerae anicteric. Mucous membranes of the mouth are moist. No JVD. No carotid bruit. CHEST EXAMINATION: Lungs are clear to auscultation. No chest wall tenderness is noted on palpation or with deep breathing. Diminished bilaterally. HEART EXAMINATION: Regular rate and rhythm. S1, S2 heard. No murmurs, gallops or rub. ABDOMEN: Soft, nontender. Positive bowel sounds. EXTREMITIES: 2+ peripheral pulses, no lower extremity edema and no calf tenderness. NEUROLOGIC EXAMINATION: Patient is awake, alert and oriented x3. ASSESSMENT Chest pain, noncardiac Hypertension COPD Chronic nicotine dependence PLAN An acute coronary event has been ruled out. Pain is noncardiac in nature. Disc ontinue heparin infusion. We will check a 2-D echocardiogram and Doppler study to assess cardiac structure and function. Ongoing medical management and treatment of underlying lung disease. We recommend following up as an outpatient for stress testing. Thank you kindly for this consultation. Nurse Practitioner note has been reviewed, I agree with a documented findings and plan of care. Patient was seen and examined. Past Medical History Past Medical History: Asthma, COPD, GERD/Reflux, Hypertension, Osteoarthritis (OA) Additional Past Medical History / Comment(s): hand tremors, hepatitis c-pt states she is not Hep C postive History of Any Multi-Drug Resistant Organisms: None Reported Past Surgical History: Back Surgery, Cholecystectomy, Joint Replacement, Orthopedic Surgery, Tubal Ligation Additional Past Surgical History / Comment(s): BACK FUSION, cervical fusion, left ANKLE SURGERY, left knee arthoscopy, TOTAL RIGHT HIP Past Anesthesia/Blood Transfusion Reactions: No Reported Reaction Past Psychological History: Anxiety, Depression Smoking Status: Current every day smoker Past Alcohol Use History: Rare Additional Past Alcohol Use History / Comment(s): trying to quit smoking Past Drug Use History: None Reported - Past Family History Mother Family Medical History: Deep Vein Thrombosis (DVT) Sister(s) Family Medical History: Cancer Medications and Allergies Home Medications Medication Instructions Recorded Confirmed Type Primidone [Mysoline] 250 mg PO BID 04/09/15 02/03/21 History Esomeprazole Magnesium [NexIUM] 40 mg PO DAILY 04/23/15 02/03/21 History amLODIPine [Norvasc] 10 mg PO DAILY 04/23/15 02/03/21 History Ibuprofen [Motrin] 800 mg PO AC-TID PRN 09/28/17 02/03/21 History ARIPiprazole [Abilify] 5 mg PO DAILY 05/25/18 02/03/21 History Albuterol Inhaler [Ventolin Hfa 2 puff INHALATION RT-Q6H PRN 02/03/21 02/03/21 History Inhaler] Ferrous Sulfate [Feosol] 325 mg PO DAILY 02/03/21 02/03/21 History Fluticasone/Umeclidin/Vilanter 1 puff INHALATION RT-DAILY 02/03/21 02/03/21 History [Trelegy Ellipta 100-62.5-25] HYDROcodone/APAP 7.5-325MG [[place] 1 tab PO TID PRN 02/03/21 02/03/21 History 7.5-325] Montelukast [Singulair] 10 mg PO DAILY 02/03/21 02/03/21 History Oxybutynin Chloride [Ditropan] 5 mg PO DAILY 02/03/21 02/03/21 History PARoxetine HCL [Paxil] 30 mg PO DAILY 02/03/21 02/03/21 History rOPINIRole HCL [Requip] 0.5 mg PO HS 02/03/21 02/03/21 History Allergies Allergy/AdvReac Type Severity Reaction Status Date / Time Obvculx-Dkp-Mhx Reductase AdvReac Myalgia Verified 02/03/21 13:46 Inhibitor varenicline [From Chantix] AdvReac Nightmares Verified 02/03/21 13:46 Physical Exam Vitals: Vital Signs Temp Pulse Pulse Resp BP BP Pulse Ox 02/04/21 07:00 97.9 F 65 16 116/62 97 02/04/21 06:01 68 02/04/21 05:48 68 02/04/21 02:00 98.3 F 64 17 136/75 95 02/04/21 00:34 64 17 02/04/21 00:00 97.6 F 64 17 132/74 94 L 02/03/21 22:31 71 18 129/69 96 02/03/21 22:16 68 02/03/21 22:01 66 02/03/21 20:00 64 17 02/03/21 18:17 75 18 131/82 98 02/03/21 15:10 74 16 131/65 98 02/03/21 13:53 78 18 130/68 95 02/03/21 12:06 99.2 F 74 18 113/87 97 Intake and Output 02/03/21 02/04/21 02/04/21 22:59 06:59 14:59 Intake Total 104 Balance 104 Intake: Intake, IV Titration 104 Amount Heparin Sod,Pork in 0.45% 104 NaCl 25,000 unit In 0.45 % NaCl 1 250ml.bag @ 10. 35 UNITS/KG/HR 10 mls/hr IV .Q24H [facility] Rx#: [id number] Other: Voiding Method Toilet Toilet # Voids 1 3 Weight 96.615 kg Results 02/03/21 12:57 02/03/21 12:57 Cardiac Enzymes 02/03/21 02/03/21 02/03/21 Range/Units 12:57 12:57 16:41 AST 27 (14-36) U/L Troponin I <0.012 <0.012 (0.000-0.034) ng/mL 02/03/21 Range/Units 19:32 AST (14-36) U/L Troponin I <0.012 (0.000-0.034) ng/mL Coagulation 02/03/21 02/03/21 02/04/21 Range/Units 12:57 21:48 00:05 PT 10.0 (9.0-12.0) sec APTT 23.6 28.8 28.6 (22.0-30.0) sec CBC 02/03/21 Range/Units 12:57 WBC 6.7 (3.8-10.6) k/uL RBC 4.99 (3.80-5.40) m/uL Hgb 10.1 L (11.4-16.0) gm/dL Hct 34.4 (34.0-46.0) % Plt Count 159 (150-450) k/uL Comprehensive Metabolic Panel 02/03/21 Range/Units 12:57 Sodium 139 (137-145) mmol/L Potassium 4.0 (3.5-5.1) mmol/L Chloride 107 (98-107) mmol/L Carbon Dioxide 27 (22-30) mmol/L BUN 9 (7-17) mg/dL Creatinine 0.44 L (0.52-1.04) mg/dL Glucose 92 (74-99) mg/dL Calcium 9.1 (8.4-10.2) mg/dL AST 27 (14-36) U/L ALT 19 (4-34) U/L Alkaline Phosphatase 117 (38-126) U/L Total Protein 6.6 (6.3-8.2) g/dL Albumin 4.0 (3.5-5.0) g/dL Current Medications Generic Name Dose Route Start Last Admin Trade Name Freq PRN Reason Stop Dose Admin Hydrocodone Bitart/Acetaminophen 1 each 02/03/21 18:48 02/04/21 06:21 Hydrocodone/Apap 7.5-325mg 1 Each Tab PO 1 each Q6H PRN Administration Pain Albuterol Sulfate 2.5 mg 02/03/21 19:52 02/04/21 05:47 Albuterol Nebulized 2.5 Mg/3 Ml INHALATION 2.5 mg RT-Q6H PRN Administration Shortness Of Breath Alprazolam 0.25 mg 02/03/21 19:54 Alprazolam 0.25 Mg Tab PO TID PRN Anxiety Amlodipine Besylate 10 mg 02/04/21 09:00 02/04/21 08:05 Amlodipine 10 Mg Tab PO 10 mg DAILY JENNA Administration Aripiprazole 5 mg 02/04/21 09:00 02/04/21 08:05 Aripiprazole 5 Mg Tab PO 5 mg DAILY JENNA Administration Aspirin 325 mg 02/04/21 09:00 02/04/21 08:05 Aspirin 325 Mg Tab PO 325 mg DAILY JENNA Administration Budesonide/Formoterol Fumarate 2 puff 02/04/21 08:00 02/04/21 05:47 Symbicort 80-4.5 Mcg Inhaler INHALATION 2 puff RT-BID JENNA Administration Ferrous Sulfate 325 mg 02/04/21 09:00 02/04/21 08:05 Ferrous Sulfate 325 Mg Tab PO 325 mg DAILY JENNA Administration Hydromorphone HCl 0.5 mg 02/03/21 18:47 02/04/21 04:37 Hydromorphone 0.5 Mg/0.5 Ml Syringe IVP 0.5 mg Q4HR PRN Administration Pain Heparin Sodium/Sodium Chloride 250 mls @ 10 mls/hr 02/03/21 14:30 02/04/21 01:45 25,000 unit/ Sodium Chloride IV 13.35 units/kg/hr .Q24H JENNA 12.898 mls/hr Titration Protocol 10.35 UNITS/KG/HR Ibuprofen 800 mg 02/03/21 19:52 Ibuprofen 800 Mg Tab PO AC-TID PRN Pain Ipratropium [place] 0.5 mg 02/04/21 08:00 02/04/21 05:47 Ipratropium 0.5 Mg/2.5 Ml Nebu INHALATION 0.5 mg RT-QID JENNA Administration Montelukast Sodium 10 mg 02/04/21 09:00 02/04/21 08:05 Montelukast 10 Mg Tab PO 10 mg DAILY JENNA Administration Nitroglycerin 0.4 mg 02/03/21 14:26 Nitroglycerin Sl Tabs 0.4 Mg Tab SUBLINGUAL Q5M PRN Chest Pain Nitroglycerin 1 inch 02/03/21 18:00 02/04/21 05:32 Nitroglycerin Oint 1 Inch/Gm Packet TOPICAL 1 inch Q6HR JENNA Administration Oxybutynin Chloride 5 mg 02/04/21 09:00 02/04/21 08:06 Oxybutynin Chloride 5 Mg Tab PO 5 mg DAILY JENNA Administration Pantoprazole Sodium 40 mg 02/04/21 07:30 02/04/21 08:05 Pantoprazole 40 Mg Tablet PO 40 mg AC-BRKFST JENNA Administration Paroxetine HCl 30 mg 02/04/21 09:00 02/04/21 08:06 Paroxetine 10 Mg Tab PO 30 mg DAILY JENNA Administration Primidone 250 mg 02/03/21 21:00 02/04/21 08:06 Primidone 250 Mg Tab PO 250 mg BID JENNA Administration Ropinirole HCl 0.5 mg 02/03/21 21:00 02/03/21 22:16 Ropinirole Hcl 0.25 Mg Tab PO Not Given HS JENNA Temazepam 15 mg 02/03/21 19:54 Temazepam 15 Mg Cap PO HS PRN Insomnia Intake and Output 02/03/21 02/04/21 02/04/21 22:59 06:59 14:59 Intake Total 104 Balance 104 Intake: Intake, IV Titration 104 Amount Heparin Sod,Pork in 0.45% 104 NaCl 25,000 unit In 0.45 % NaCl 1 250ml.bag @ 10. 35 UNITS/KG/HR 10 mls/hr IV .Q24H [facility] Rx#: [id number] Other: Voiding Method Toilet Toilet # Voids 1 3 Weight 96.615 kg 02/03/21 12:57 02/03/21 12:57
[2021-02-04 11:56] LABS: Basophils # (A) 0.02 X 10*3/uL (0.00-0.10); Basophils % (A) 0.4 %; Eosinophils # (A) 0.14 X 10*3/uL (0.04-0.35); Eosinophils % (A) 2.8 %; HGB 9.5 g/dL (12.0-15.0); Lymphocytes # (A) 1.91 X 10*3/uL (0.90-5.00); MCH 20.5 pg (27.0-32.0); MCHC 28.8 g/dL (32.0-37.0); MCV 71.3 fL (80.0-97.0); Monocytes % (A) 9.9 %; Neutrophils # (A) 2.45 X 10*3/uL (1.80-7.70); Neutrophils % (A) 48.7 %; Platelet Count 155 X 10*3/uL (140-440); RBC 4.63 X 10*6/uL (4.10-5.20); RDW 21.1 % (11.5-14.5); WBC 5.03 X 10*3/uL (4.50-10.00)
[2021-02-04 12:08] VITALS: PULSE 72
--- NOTE | 2021-02-04 13:00 | ECHOF ---
Referral Reason:cp MEASUREMENTS -------- HEIGHT: 167.6 cm WEIGHT: 96.6 kg BP: 116/62 RVIDd: 3.5 cm (< 3.3) IVSd: 1.4 cm (0.6 - 1.1) LVIDd: 4.6 cm (3.9 - 5.3) LVPWd: 1.3 cm (0.6 - 1.1) IVSs: 1.9 cm LVIDs: 3.2 cm LVPWs: 1.9 cm LA Diam: 3.8 cm (2.7 - 3.8) LAESV Index (A-L): 26.76 ml/m Ao Diam: 3.2 cm (2.0 - 3.7) AV Cusp: 2.2 cm (1.5 - 2.6) MV EXCURSION: 8.330 mm (> 18.000) MV EF SLOPE: 44 mm/s (70 - 150) EPSS: 1.6 cm MV E Jesús: 0.98 m/s MV DecT: 246 ms MV A Jesús: 1.07 m/s MV E/A Ratio: 0.92 RAP: 5.00 mmHg RVSP: 24.33 mmHg FINDINGS -------- Sinus rhythm. This was a technically adequate study. The left ventricular size is normal. There is moderate concentric left ventricular hypertrophy. O verall left ventricular systolic function is mildly impaired with, an EF between 45 - 50 %. The right ventricle is mildly enlarged. Normal LA size by volume 22+/-6 ml/m2. The right atrium is normal in size. Interatrial and interventricular septum intact. The aortic valve is trileaflet and appears structurally normal. There is trace mitral regurgitation. Mild tricuspid regurgitation present. Right ventricular systolic pressure is normal at < 35 mmHg. The pulmonic valve was not well visualized. The aortic root size is normal. Normal inferior vena cava with normal inspiratory collapse consistent with estimated right atrial pre ssure of 5 mmHg. There is no pericardial effusion. CONCLUSIONS -------- 1. The left ventricular size is normal. 2. There is moderate concentric left ventricular hypertrophy. 3. Overall left ventricular systolic function is mildly impaired with, an EF between 45 - 50 %. 4. The right ventricle is mildly enlarged. 5. There is trace mitral regurgitation. 6. Mild tricuspid regurgitation present. 7. There is no pericardial effusion. MILANESE KNITTING MACHINE OPERATOR: Alysia Bailey RDCS
--- NOTE | 2021-02-04 18:12 | DS ---
DISCHARGE SUMMARY DATE OF SERVICE: 02/04/2021 FINAL DIAGNOSES: 1. Chest pain, myocardial infarction ruled out. Rule out coronary artery disease. 2. Anemia, microcytic anemia, undetermined etiology. 3. Mildly decreased LV systolic function of undetermined etiology. 4. History of asthma, chronic obstructive pulmonary disease. 5. Gastroesophageal reflux disease. 6. Hypertension. 7. History of bibasilar atelectasis. 8. History of degenerative joint disease. 9. History of hand tremors. 10.History of hepatitis C. 11.History of cholecystectomy. 12.History of back fusion. 13.Anxiety, depression. 14.History of nicotine dependence. 15.Obesity with body mass index of 34.4. DISCHARGE DISPOSITION: The patient being discharged in stable condition with guarded prognosis. HISTORY OF PRESENT ILLNESS: This 65-year-old woman with a past medical history of multiple medical problems was admitted with chest pain, myocardial infarction was ruled out. Cardiology saw the patient and recommend outpatient stress test and the patient will be discharged in stable condition with guarded prognosis with the following advice and medications. A 2D echo with Doppler was done by Cardiology showed ejection fraction about 45 to 50%. DISCHARGE ADVICE AND MEDICATIONS: 1. Diet is cardiac diet. 2. Activity limited until followup. 3. Follow up with Dr. Matute 2-3 days. 4. Follow up with Dr. Heath as recommended. 5. Outpatient stress test. DISCHARGE MEDICATIONS: 1. Abilify 5 mg p.o. daily. 2. Ditropan 5 mg p.o. daily. 3. Iron sulfate 320 mg. 4. Ibuprofen p.r.n. 5. Mysoline 250 mg p.o. b.i.d. 6. Esomeprazole 40 mg daily. 7. Hydrocodone 7.5 mg t.i.d. p.r.n. 8. Norvasc 10 mg daily. 9. Paxil 30 mg daily. 10.Requip 0.5 mg q.h.s. 11.Singulair 10 mg daily. 12.Fluticasone, Brilinta as before. 13.Ventolin as before. 14.Aspirin 81 mg p.o. daily. Once again, the patient will be discharged in stable condition with guarded prognosis. MMODL / IJN: [id number] /
[2021-02-05 00:02] LABS: African American GFR (CKD) 118.5 (60.0-200.0); Albumin 4.1 g/dL (3.80-4.90); Albumin/Globulin Ratio 2.16 (1.60-3.17); Anion Gap 14.4 mmol/L (4.00-12.00); Calcium 9.2 mg/dL (8.7-10.3); Carbon Dioxide 22.6 mmol/L (21.6-31.8); Chol/HDL Ratio 5.11; Globulin 1.9 g/dL (1.6-3.3); Non-African American GFR(CKD) 102.3 (60.0-200.0); Potassium 4.3 mmol/L (3.5-5.5); Total Bilirubin 0.3 mg/dL (0.2-1.2)
== END 2021-02-04 12:46 ==
LOC: EC 11:59 → 6NMEDSUR 14:27
PROVIDERS: ADMIT Hospitalist; ATTEND Hospitalist
DX: R07.89 Other chest pain (principal); J43.9 Emphysema, unspecified; D50.9 Iron deficiency anemia, unspecified; I10 Essential (primary) hypertension; J98.11 Atelectasis; K21.9 Gastro-esophageal reflux disease without esophagitis; M19.90 Unspecified osteoarthritis, unspecified site; B19.20 Unspecified viral hepatitis C without hepatic coma; R25.1 Tremor, unspecified; F32.9 Major depressive disorder, single episode, unspecified; F41.9 Anxiety disorder, unspecified; F17.200 Nicotine dependence, unspecified, uncomplicated; E66.9 Obesity, unspecified; Z68.34 Body mass index [BMI] 34.0-34.9, adult; Z20.822 Contact with and (suspected) exposure to COVID-19; Z79.51 Long term (current) use of inhaled steroids; Z79.899 Other long term (current) drug therapy; Z88.8 Allergy status to other drugs, medicaments and biological substances; Z98.1 Arthrodesis status; Z90.49 Acquired absence of other specified parts of digestive tract; Z98.51 Tubal ligation status; Z96.641 Presence of right artificial hip joint; Z82.49 Family history of ischemic heart disease and other diseases of the circulatory system; Z80.9 Family history of malignant neoplasm, unspecified
CPT/HCPCS: 96376 ×2; 96366 ×2; 93005 ×2; 96365; 96375; 99291; 36415; 94640 ×2; 93306; 85379; 80061; 80053 ×2; 83735; 84484; 85025 ×2; 85610; 85730 ×2; 87635; 71046; G0378 ×2; J1644 ×3; J1170 ×2

== ENCOUNTER → 2021-03-21 | Outpatient (CLI) | payer MEDICARE, OTHER ==
[2021-03-21 11:19] LABS: ALT 21 U/L (4-34); AST 25 U/L (14-36); African American GFR (CKD) >90 (>60 ml/min/1.73 sqM); Albumin 4.5 g/dL (3.5-5.0); Alkaline Phosphatase 154 U/L (38-126); Anion Gap 8 mmol/L; Anisocytosis Slight; Blood Urea Nitrogen 4 mg/dL (7-17); Calcium 8.8 mg/dL (8.4-10.2); Carbon Dioxide 28 mmol/L (22-30); Chloride 102 mmol/L (98-107); Glucose 92 mg/dL (74-99); HCT 33.3 % (34.0-46.0); HGB 10.9 gm/dL (11.4-16.0); Hypochromasia Moderate; MCH 22.8 pg (25.0-35.0); MCHC 32.6 g/dL (31.0-37.0); MCV 69.8 fL (80.0-100.0); Mean Platelet Volume 7.3; Microcytosis Marked; Non-African American GFR(CKD) >90 (>60 ml/min/1.73 sqM); Platelet Count 192 k/uL (150-450); Potassium 4.1 mmol/L (3.5-5.1); RBC 4.77 m/uL (3.80-5.40); RDW 18.7 % (11.5-15.5); Sodium 138 mmol/L (137-145); Total Bilirubin 0.1 mg/dL (0.2-1.3); Total Protein 7.1 g/dL (6.3-8.2); WBC 6.6 k/uL (3.8-10.6)
[2021-03-21 11:26] LABS: Prothrombin Time 10.4 sec (9.0-12.0)
[2021-03-24 10:39] LABS: % Iron Saturation 4.04 (12.00-45.00)
[2021-03-24 10:51] LABS: Ferritin 6.4 ng/mL (10.0-291.0)
== END | disposition home or self-care (01) ==
LOC: LABPAT 10:23
PROVIDERS: ATTEND Orthopaedic Surgery
DX: Z01.812 Encounter for preprocedural laboratory examination (principal); R94.09 Abnormal results of other function studies of central nervous system; Z79.01 Long term (current) use of anticoagulants
CPT/HCPCS: 36415; 80053; 82728; 83540; 83550; 85027; 85610; 85730; 87070

== ENCOUNTER 2021-04-01 11:35 | Day surgery (SDC) | payer MEDICARE, OTHER ==
[~2021-04-01 11:35] MED LIST changes: +ACETAMINOPHEN TAB 500 MG TAB PO PRN; +DEXAMETHASONE SOD PHOSPHATE 4 MG/ML 1 ML VIAL IV ONE; +GABAPENTIN 300 MG CAP PO PRN; +HYDROmorphone 0.5 MG/0.5 ML SYRINGE IVP PRN; +LIDOCAINE 1% (10MG/ML) FOR IV START INTRADERMA PRN; +MELOXICAM 7.5 MG TAB PO PRN; +ONDANSETRON 4 MG/2 ML VIAL IVP ONE; -REGADENOSON 0.4 MG/5 ML SYRINGE IV ONE; +ROPIVACAINE/EPI/CLONIDINE/KET 50 ML SYRINGE MISCELLANE PRN; +TRANEXAMIC ACID 1,000 MG in SODIUM CHLORIDE 0.9% 100 ML IVPB PRN
[2021-04-01] MEDS: LACTATED RINGERS 1,000 ML IV SCH ×2 (12:55→16:45)
[2021-04-01] MEDS ORDERED: MIDAZOLAM 2 MG/2 ML VIAL IV ONE (13:14)
[2021-04-01] MEDS ORDERED: fentaNYL (PF) 50 MCG/ML 2 ML AMP IV ONE (13:14)
[2021-04-01] MEDS ORDERED: NALOXONE 0.4 MG/ML 1 ML VIAL IV PRN ×2 (13:39→15:28)
[2021-04-01] MEDS ORDERED: ONDANSETRON 4 MG/2 ML VIAL IVP PRN (13:39)
[2021-04-01] MEDS ORDERED: HYDROmorphone 0.5 MG/0.5 ML SYRINGE IVP PRN ×2 (13:39)
[2021-04-01] MEDS ORDERED: HYDROmorphone 0.2 MG/1 ML SYRINGE IVP PRN (13:39)
[2021-04-01] MEDS ORDERED: ALBUTEROL HFA INHALER INHALATION ONE (13:40)
[2021-04-01] MEDS ORDERED: ROCURONIUM 10 MG/ML (5 ML VIAL) IV ONE (13:40)
[2021-04-01] MEDS ORDERED: fentaNYL (PF) 50 MCG/ML 2 ML AMP ONE (13:40)
[2021-04-01] MEDS ORDERED: GLYCOPYRROLATE 0.2 MG/ML 2 ML VIAL ONE (13:40)
[2021-04-01] MEDS ORDERED: NEOSTIGMINE 1 MG/ML 10 ML VIAL ONE (13:40)
[2021-04-01] MEDS ORDERED: LIDOCAINE 1% INJ 10MG/ML (20 ML MDV) ONE (13:40)
[2021-04-01] MEDS ORDERED: ROPIVACAINE 5 MG/ML 30 ML VIAL ONE (13:40)
[2021-04-01] MEDS ORDERED: SODIUM CHLORIDE 0.9% 100 ML BAG ONE (13:40)
[2021-04-01] MEDS ORDERED: PROPOFOL 10 MG/ML 20 ML VIAL IV ONE (13:40)
[2021-04-01] MEDS ORDERED: TRANEXAMIC ACID 1,000 MG/10 ML VIAL ONE (13:40)
[2021-04-01] MEDS ORDERED: SUCCINYLCHOLINE CHLORIDE 100 MG/5 ML SYR IV ONE (13:40)
[2021-04-01] MEDS ORDERED: HYDROcodone/APAP 7.5-325MG 1 EACH TAB PO PRN (13:42)
[2021-04-01] MEDS ORDERED: ceFAZolin 3,000 MG in SODIUM CHLORIDE 0.9% IRRIGATIO 3,000 ML IRRIGATION ONE (13:48)
--- NOTE | 2021-04-01 14:05 | P.ANPRN ---
Procedure Note - Anesthesia - Nerve Block Performed Right Adductor Canal Infusion Time Out Performed: Yes Date of Procedure: 04/01/21 Procedure Start Time: 13:14 Procedure Stop Time: 13:29 Location of Patient: PreOp Indication: Acute Post-Operative Pain, Dx/Pain Location, Requested by Surgeon Specifically requested for management of pain by : Fabian Aldana Sedation Type: Sedate with meaningful contact maintained Preparation: Sterile Prep, Sterile Dressing Position: Supine Catheter Depth at Skin (cm): 7 Catheter: Indwelling Needle Types: Pajunk Needle Gauge: 20 Ultrasound used to visualize needle placement: Yes Ultrasound used to observe medication spread: Yes Injectate: 0.5% Ropivacaine (see comment for volume) Blood Aspirated: No Pain Paresthesia on Injection Noted: No Resistance on Injection: Normal Image Stored and Saved: Yes Events: Uneventful and Well Tolerated (20cc 0.5% Ropivacaine)
--- NOTE | 2021-04-01 14:07 | P.ANPRN ---
Procedure Note - Anesthesia - Nerve Block Performed Right [place] Single Time Out Performed: Yes Date of Procedure: 04/01/21 Procedure Start Time: 13:30 Procedure Stop Time: 13:35 Location of Patient: PreOp Indication: Acute Post-Operative Pain, Dx/Pain Location, Requested by Surgeon Specifically requested for management of pain by : Fabian Aldana Sedation Type: Sedate with meaningful contact maintained Preparation: Sterile Prep Position: Supine Catheter: None Needle Types: Facet Needle Gauge: 20 Ultrasound used to visualize needle placement: Yes Ultrasound used to observe medication spread: Yes Injectate: 0.5% Ropivacaine (see comment for volume) Blood Aspirated: No Pain Paresthesia on Injection Noted: No Resistance on Injection: Normal Image Stored and Saved: Yes Events: Uneventful and Well Tolerated (10cc 0.5% Ropivacaine)
--- NOTE | 2021-04-01 14:58 | P.OP ---
Date of Procedure: 04/01/21 Preoperative Diagnosis: Severe osteoarthritis right knee Postoperative Diagnosis: Severe osteoarthritis right knee Procedure(s) Performed: Right total knee arthroplasty Implants: Doe [employer] Nephew Journey II CR Oxinium cruciate retaining femoral component size 5, right [employer] Nephew Journey nonporous tibial baseplate size 4, right [employer] Nephew Journey II, XLPE Deep Dished articular insert, size 9 mm, Size 3- 4, right [employer] Nephew Journey Viridiana II resurfacing patellar component, oval, 32 mm All components were cemented using Palacos R bone cement The articulation is Oxinium on polyethylene Anesthesia: BERTO Surgeon: Fabian Aldana Throat Cutter #1: Cathy Lewis Estimated Blood Loss (ml): 50 Pathology: other (Bone and cartilage) Condition: stable Disposition: PACU Indications for Procedure: After failure of conservative treatment we discussed the surgical and nonsurgical treatment options at length. Patient wishes to proceed with a total knee arthroplasty. Complications specific to this procedure were discussed at length, including but not limited to infection, bleeding, stiffness, and nerve injury. Covid-19 was also discussed at length with the patient, and they are aware of the current policies and procedures. The patient was given the option of delaying surgery, but they elect to proceed knowing these risks. Patient is aware of all these complications and informed consent was obtained Operative Findings: The operative findings are consistent with severe osteoarthritis of the right knee Description of Procedure: Patient was seen in the preoperative area and the consent was reviewed and the operative site was marked with a skin marker. The patient verified the procedure and the operative site. An adductor canal pain catheter was placed by anesthesia in the preoperative area. The patient was then brought to the operating room and given preoperative antibiotics intravenously. A gram of transexamic acid was given intravenously. A general anesthetic was administered by the anesthesia department. A tourniquet was placed on the upper thigh and the lower extremity was prepped with chlorhexidine and draped in usual sterile fashion. A universal timeout was then performed which confirmed the patient's name, surgical site, ALLERGIES, and consent. The lower extremity was then exsanguinated and tourniquet was inflated to 250 mmHg. A standard anterior midline approach to the knee was performed. The skin and subcutaneous tissue were sharply dissected down to the patellar tendon. A medial parapatellar arthrotomy was then performed. The knee was then extended, the patellar was everted, and the knee was again flexed. The infra-patellar fat pad was removed in order to enhance exposure. The anterior horns of both menisci were excised, and a release was performed to the posterior medial aspect of the knee. On gross visual inspection, there was complete loss of articular cartilage in the medial and patellofemoral joint spaces. There was also significant cartilage damage in the lateral compartment. There were multiple periarticular osteophytes globally about the knee which were then removed with a Ronguer. The femoral canal was then opened with the 9.5 mm intramedullary drill. The 8 mm intramedullary silva was then inserted into the femoral canal with the distal femoral cutting guide set for 5 of valgus. The distal femoral cutting block was then pinned in place. The intramedullary silva was then removed, and the distal femur was then cut. The cutting block was then removed and the cut was checked for symmetry. The resected bone was then measured to confirm the appropriate distal femoral resection. Next, the sizing guide was then placed and set for 3 external rotation based off of the epicondylar axis and Whitesides line. Pins were then placed and the drill holes, and the femur was sized with the sizing stylus. The pins were then removed, and the sizing guide was then removed. The spikes of the femoral block was then placed into the predrilled holes, and malleted into place. Two 45 mm pins were then placed into the fixation holes on the cutting block. An jose rafael wing was then used to ensure there would be no notching with the anterior cut. The anterior condyles were cut without notching. The anterior chord cut was then performed, followed by the posterior cut, posterior chamfer cut, and the anterior chamfer cut. The collateral ligaments were protected during the entire process. The cutting block was then removed. Any remaining bone and osteophytes were removed from the femur with a Rominger. The femoral canal was plugged with autologous bone. Attention was then directed to the tibia. The remaining ACL was removed with a Ronguer, and the tibia was then gently subluxed forward with a large bent knee retractor. Any remaining menisci were excised. The posterior lateral corner was cauterized in order to coagulate the lateral geniculate artery. The extra medullary tibial cutting guide was then placed, set for the appropriate rotation, slope, and depth of resection. The proximal tibia cutting guide was then pinned in place. Proximal tibia was then cut and sized. The femoral trial was placed. A narrow saw blade was then used to remove the anterior intracondylar femoral bone. The CR notch trial was then placed. The tibial trial was placed with the appropriate-sized insert. The knee was able to fully extend and flex to 130 and was stable throughout all range of motion. The knee was then extended and the patella was everted. Patella was then measured, and then using an osteotomy guide, the patella was cut at the appropriate level. The patella was then measured and drilled and the patella trial was then placed. The knee was then taken through range of motion with the patella trial and the patella tracked normally using the no thumbs technique.. The knee was then extended patella trial was then removed and the patella was everted. Knee was then flexed and lug holes were drilled through the femoral trial and the femoral trial was then removed. The tibial was then re-exposed, and the tibial broach guide was then pinned in place after it was set for the appropriate rotation to allow for the most coverage without overhang. The tibia was then reamed and broached. The cut surfaces of bone were then irrigated with pulsatile lavage. The posterior structures were injected with the ropivacaine solution. The knee was also irrigated with Irrisept solution. The components were then opened, the cement was mixed, and the components were then cemented in place. The cement was allowed to harden with the knee in full extension. While the cement was hardening, the remaining soft tissues were then injected with a ropivacaine solution, which consisted of 246.25 mg of ropivacaine, 0.5 mg of epinephrine, 30 mg of Toradol, 80 g of clonidine, and 48.45 mL of sterile water, for a total of 100 mL of fluid injected. After the cemented hardened. The tourniquet was released, and hemostasis was obtained. A second gram of transexamic acid was given intravenously. The knee was again irrigated. The knee was again taken through range of motion and found to be stable throughout all range of motion of 0-130, and the patella tracked normally. The fascia was then closed with 0 Vicryl followed by #2 strata fix suture. The subcutaneous tissue was closed with 3-0 Vicryl and 3-0 strata fix. Exofin glue was used for the skin and placed with the knee in flexion. After the glue had dried, and Optafoam silver impregnated dressing was applied. The patient was then transferred to recovery room in stable condition. The special education assistant JACK Henderson was required due the complexity surgery and the need for a skilled unit assistant. She assisted in positioning, draping, retraction, and closure of the wound.
[2021-04-01] MEDS ORDERED: MAGNESIUM HYDROXIDE 2,400 MG/10 ML CUP PO PRN (15:28)
[2021-04-01] MEDS ORDERED: bisacodyL 10 MG SUPP RECTAL PRN (15:28)
[2021-04-01] MEDS ORDERED: NA PHOS,M-B/NA PHOS,DI-BA 133 ML ENEMA RECTAL PRN (15:28)
[2021-04-01] MEDS ORDERED: hydrOXYzine pamoate 25 MG CAP PO PRN (15:28)
--- NOTE | 2021-04-01 15:49 | XR ---
EXAMINATION TYPE: XR knee limited RT DATE OF EXAM: 04/01/2021 CLINICAL HISTORY: Right knee pain and arthritis status post total knee replacement. TECHNIQUE: Portable AP and crosstable lateral views of the right knee are obtained immediately posto peratively. COMPARISON: 09/30/2020 FINDINGS: Metallic hardware from total right knee arthroplasty is seen and appears satisfactory in a lignment and position. There is evidence of recent surgery with diffuse subcutaneous gas , vertical skin pritesh, and percutaneous suprapatellar effusion with gas noted. IMPRESSION: METALLIC HARDWARE FROM TOTAL right KNEE ARTHROPLASTY IS SATISFACTORY IN ALIGNMENT.
[2021-04-01] MEDS ORDERED: SENNOSIDES-DOCUSATE SODIUM 1 EACH TAB PO SCH (21:00)
[2021-04-01] MEDS: ASPIRIN 325 MG TAB PO SCH (21:12)
[2021-04-01] MEDS: SODIUM CHLORIDE 0.9% 1,000 ML IV SCH (21:13)
[2021-04-02] MEDS: HYDROcodone/APAP 7.5-325MG 1 EACH TAB PO PRN ×2 (05:55→12:06)
[2021-04-02] MEDS: SODIUM CHLORIDE 0.9% 1,000 ML IV SCH (06:10)
[2021-04-02 07:57] VITALS: BP 118/69; PULSE 79; RESP 20; TEMP 98.2
[2021-04-02] MEDS: ASPIRIN 325 MG TAB PO SCH (08:30)
[2021-04-02] MEDS ORDERED: MELOXICAM 7.5 MG TAB PO SCH (09:00)
[2021-04-02 12:44] LABS: Basophils # (A) 0.02 X 10*3/uL (0.00-0.10); Basophils % (A) 0.2 %; Eosinophils # (A) 0.04 X 10*3/uL (0.04-0.35); Eosinophils % (A) 0.4 %; HCT 31.9 % (37.2-46.3); HGB 9.2 g/dL (12.0-15.0); Lymphocytes # (A) 1.84 X 10*3/uL (0.90-5.00); Lymphocytes % (A) 19.3 %; MCH 21.5 pg (27.0-32.0); MCHC 28.8 g/dL (32.0-37.0); MCV 74.7 fL (80.0-97.0); Mean Platelet Volume 10.5 fL (9.5-12.2); Monocytes # (A) 1.05 X 10*3/uL (0.20-1.00); Neutrophils # (A) 6.53 X 10*3/uL (1.80-7.70); Neutrophils % (A) 68.5 %; Platelet Count 158 X 10*3/uL (140-440); RBC 4.27 X 10*6/uL (4.10-5.20); RDW 20.6 % (11.5-14.5); WBC 9.54 X 10*3/uL (4.50-10.00)
--- NOTE | 2021-04-02 12:45 | P.DS ---
Providers Expected date of discharge: 04/02/21 Attending physician: Fabian Aldana Consults: 04/01/21 15:27 Consult Physician Routine Consulting Provider: Zaira Byrd Consult Reason/Comments: medical management Do you want consulting provider notified?: Yes Primary care physician: Juju Singer - Discharge Diagnosis(es) (1) Osteoarthritis of right knee Current Visit: Yes Status: Acute (2) Status post total right knee replacement Current Visit: Yes Status: Acute Hospital Course: This is a pleasant 66-year-old female last seen in our office with complaints of right knee pain. Patient has known history of degenerative arthritis of the right knee and presented to discuss options. After discussion and consideration, patient elected to proceed with a total knee arthroplasty of the right knee. The patient was seen preoperatively and medically cleared for surgery by her primary care physician. The patient was admitted to [facility] and underwent right total knee arthroplasty on 04/01/[address] Fabian Aldana. The procedure was performed without complications or sequelae. The patient has done well postoperatively. The patient was seen and evaluated at bedside today and denies any new complaints. Pain is reasonably controlled. Dressing is clean dry and intact. Incision looks fine with no erythema or active drainage. Calf is soft and nontender. The patient has full foot and ankle motion without difficulty. Patient's right lower extremity is neurovascular intact. Patient is orthopedically stable for discharge to home today. Pertinent Studies: Laboratory Tests 04/02/21 06:52 WBC 9.54 RBC 4.27 Hgb 9.2 L Hct 31.9 L Patient Condition at Discharge: Stable Plan - Discharge Summary New Discharge Prescriptions: New Celecoxib [CeleBREX] 200 mg PO DAILY 5 Days #5 capsule Aspirin 325 mg PO BID #60 tab Sennosides [Senokot] 2 tab PO DAILY PRN #60 tablet PRN Reason: Constipation Ondansetron Odt [Zofran Odt] 1 tab PO Q8HR PRN #10 tab PRN Reason: Nausea HYDROcodone/APAP 7.5-325MG [Mcrae 7.5-325] 1 - 2 tab PO Q6H PRN #32 tab PRN Reason: Pain No Action Primidone [Mysoline] 250 mg PO BID amLODIPine [Norvasc] 10 mg PO DAILY Esomeprazole Magnesium [NexIUM] 40 mg PO DAILY Ibuprofen [Motrin] 800 mg PO AC-TID PRN PRN Reason: Pain ARIPiprazole [Abilify] 5 mg PO DAILY rOPINIRole HCL [Requip] 0.5 mg PO HS Oxybutynin Chloride [Ditropan] 5 mg PO DAILY Montelukast [Singulair] 10 mg PO DAILY HYDROcodone/APAP 7.5-325MG [Mcrae 7.5-325] 1 tab PO TID PRN PRN Reason: Pain PARoxetine HCL [Paxil] 30 mg PO DAILY Ferrous Sulfate [Iron (65 MG Elemental)] 325 mg PO DAILY Albuterol Inhaler [Ventolin Hfa Inhaler] 2 puff INHALATION RT-Q6H PRN PRN Reason: Shortness Of Breath Fluticasone/Umeclidin/Vilanter [Trelegy Ellipta 100-62.5-25] 1 puff INHALATION RT-DAILY Aspirin 81 mg PO DAILY #30 chew Discharge Medication List Primidone [Mysoline] 250 mg PO BID 04/09/15 [History] Esomeprazole Magnesium [NexIUM] 40 mg PO DAILY 04/23/15 [History] amLODIPine [Norvasc] 10 mg PO DAILY 04/23/15 [History] Ibuprofen [Motrin] 800 mg PO AC-TID PRN 09/28/17 [History] ARIPiprazole [Abilify] 5 mg PO DAILY 05/25/18 [History] Albuterol Inhaler [Ventolin Hfa Inhaler] 2 puff INHALATION RT-Q6H PRN 02/03/21 [History] Ferrous Sulfate [Iron (65 MG Elemental)] 325 mg PO DAILY 02/03/21 [History] Fluticasone/Umeclidin/Vilanter [Trelegy Ellipta 100-62.5-25] 1 puff INHALATION RT-DAILY 02/03/21 [History] HYDROcodone/APAP 7.5-325MG [Mcrae 7.5-325] 1 tab PO TID PRN 02/03/21 [History] Montelukast [Singulair] 10 mg PO DAILY 02/03/21 [History] Oxybutynin Chloride [Ditropan] 5 mg PO DAILY 02/03/21 [History] PARoxetine HCL [Paxil] 30 mg PO DAILY 02/03/21 [History] rOPINIRole HCL [Requip] 0.5 mg PO HS 02/03/21 [History] Aspirin 81 mg PO DAILY #30 chew 02/04/21 [Rx] Aspirin 325 mg PO BID #60 tab 03/31/21 [Rx] Celecoxib [CeleBREX] 200 mg PO DAILY 5 Days #5 capsule 03/31/21 [Rx] Ondansetron Odt [Zofran Odt] 1 tab PO Q8HR PRN #10 tab 03/31/21 [Rx] Sennosides [Senokot] 2 tab PO DAILY PRN #60 tablet 03/31/21 [Rx] HYDROcodone/APAP 7.5-325MG [Mcrae 7.5-325] 1 - 2 tab PO Q6H PRN #32 tab 04/01/21 [Rx] Follow up Appointment(s)/Referral(s): [facility],Equipment [NON-STAFF] - (Please call [facility] once home to arrange delivery of Continuous Passive Motion (CPM) machine) [facility], [NON-STAFF] - ([facility] will call you to arrange a time for your first visit for 04/02/21.) Fabian Aldana DO [Doctor of Osteopathic Medicine] - 2 Weeks Ambulatory/Diagnostic Orders: Continuous Passive Motion (CPM) Machine [DME.AMB1] Time Frame: 3 Weeks, Location: None Selected Activity/Diet/Wound Care/Special Instructions: Weightbearing as tolerated with a walker. CPM 5-6h daily as tolerated. Leave dressing intact. Dressing may be removed by home care nurse or by patient in 7 days. Then change dressing twice daily until follow up. May shower with initial dressing intact and after removal. If dressing become saturated, please remove. Recommend use of compression stockings daily until follow up to help prevent swelling and blood clots. May remove at night before sleeping. Please take aspirin 325mg twice daily for 30 days to prevent blood clots. Please follow up with [facility] and call with any questions or concerns, . Discharge Disposition: HOME WITH HOME HEALTH SERVICES
--- NOTE | 2021-04-02 12:49 | P.PN ---
Progress Note - Text Progress Note Date: 04/02/21 Patient seen and examine. Post op day 1 from total knee replacement. Adductor canal catheter placed for post operative pain management. Pain is well controlled with pain pump and oral medication. No complications. Continue with pain catheter until medicine is completed.
--- NOTE | 2021-04-02 15:01 | P.CONS ---
History of Present Illness - Reason for Consult Essential hypertension - History of Present Illness 62-year-old pleasant gentleman was admitted for Right total knee arthroplasty, underwent surgery patient is being discharged today patient blood pressures is low normal which is expected in the perioperative period. Patient uses amlodipine at home which asked atrial for the next couple days to prevent hypo tension. Patient doesn't have any evidence of sepsis at this time. Review of Systems REVIEW OF SYSTEMS: CONSTITUTIONAL: No fever, no malaise, no fatigue. HEENT: No recent visual problems or hearing problems. Denied any sore throat. CARDIOVASCULAR: No chest pain, orthopnea, PND, no palpitations, no syncope. PULMONARY: No shortness of breath, no cough, no hemoptysis. GASTROINTESTINAL: No diarrhea, no nausea, no vomiting, no abdominal pain. NEUROLOGICAL: No headaches, no weakness, no numbness. HEMATOLOGICAL: Denies any bleeding or petechiae. GENITOURINARY: Denies any burning micturition, frequency, or urgency. MUSCULOSKELETAL/RHEUMATOLOGICAL: Denies any joint pain, swelling, or any muscle pain. ENDOCRINE: Denies any polyuria or polydipsia. The rest of the 14-point review of systems is negative. Past Medical History Past Medical History: Asthma, COPD, GERD/Reflux, Hypertension, Osteoarthritis (OA) Additional Past Medical History / Comment(s): hand tremors, hepatitis c-pt states she is not Hep C postive History of Any Multi-Drug Resistant Organisms: None Reported Past Surgical History: Back Surgery, Cholecystectomy, Joint Replacement, Orthopedic Surgery, Tubal Ligation Additional Past Surgical History / Comment(s): BACK FUSION, cervical fusion, left ANKLE SURGERY, left knee arthoscopy, TOTAL RIGHT HIP Past Anesthesia/Blood Transfusion Reactions: No Reported Reaction Past Psychological History: Anxiety, Depression Smoking Status: Current every day smoker Past Alcohol Use History: Rare Additional Past Alcohol Use History / Comment(s): trying to quit smoking Past Drug Use History: None Reported - Past Family History Mother Family Medical History: Deep Vein Thrombosis (DVT) Sister(s) Family Medical History: Cancer Medications and Allergies Home Medications Medication Instructions Recorded Confirmed Type Primidone [Mysoline] 250 mg PO BID 04/09/15 04/01/21 History Esomeprazole Magnesium [NexIUM] 40 mg PO DAILY 04/23/15 04/01/21 History amLODIPine [Norvasc] 10 mg PO DAILY 04/23/15 04/01/21 History Ibuprofen [Motrin] 800 mg PO AC-TID PRN 09/28/17 04/01/21 History ARIPiprazole [Abilify] 5 mg PO DAILY 05/25/18 04/01/21 History Albuterol Inhaler [Ventolin Hfa 2 puff INHALATION RT-Q6H PRN 02/03/21 04/01/21 History Inhaler] Ferrous Sulfate [Iron (65 MG 325 mg PO DAILY 02/03/21 04/01/21 History Elemental)] Fluticasone/Umeclidin/Vilanter 1 puff INHALATION RT-DAILY 02/03/21 04/01/21 History [Trelegy Ellipta 100-62.5-25] HYDROcodone/APAP 7.5-325MG [[place] 1 tab PO TID PRN 02/03/21 04/01/21 History 7.5-325] Montelukast [Singulair] 10 mg PO DAILY 02/03/21 04/01/21 History Oxybutynin Chloride [Ditropan] 5 mg PO DAILY 02/03/21 04/01/21 History PARoxetine HCL [Paxil] 30 mg PO DAILY 02/03/21 04/01/21 History rOPINIRole HCL [Requip] 0.5 mg PO HS 02/03/21 04/01/21 History Aspirin 81 mg PO DAILY #30 chew 02/04/21 04/01/21 Rx Aspirin 325 mg PO BID #60 tab 03/31/21 Rx Celecoxib [CeleBREX] 200 mg PO DAILY 5 Days #5 capsule 03/31/21 Rx Ondansetron Odt [Zofran Odt] 1 tab PO Q8HR PRN #10 tab 03/31/21 Rx Sennosides [Senokot] 2 tab PO DAILY PRN #60 tablet 03/31/21 Rx HYDROcodone/APAP 7.5-325MG [[place] 1 - 2 tab PO Q6H PRN #32 tab 04/01/21 Rx 7.5-325] Allergies Allergy/AdvReac Type Severity Reaction Status Date / Time Nlrwgaa-Krt-Ckz Reductase AdvReac Myalgia Verified 04/01/21 13:02 Inhibitor varenicline [From Chantix] AdvReac Nightmares Verified 04/01/21 13:02 Physical Exam Vitals: Vital Signs Temp Pulse Pulse Resp BP Pulse Ox 04/02/21 07:56 98.2 F 79 20 118/69 95 04/02/21 03:09 98.0 F 90 14 107/66 95 04/01/21 19:22 88 112/71 96 04/01/21 19:07 89 117/72 96 04/01/21 18:52 87 118/73 97 04/01/21 18:37 89 108/68 96 04/01/21 18:22 86 113/70 96 04/01/21 18:07 88 114/70 95 04/01/21 17:52 85 116/70 94 L 04/01/21 17:37 84 112/69 94 L 04/01/21 17:22 97.6 F 84 18 111/68 93 L 04/01/21 17:12 97.6 F 86 16 109/66 93 L 04/01/21 16:45 88 16 116/58 94 L 04/01/21 16:30 87 16 137/59 94 L 04/01/21 16:15 88 16 146/64 93 L 04/01/21 16:00 88 16 148/71 100 04/01/21 15:45 90 16 126/64 99 04/01/21 15:30 95 16 125/62 99 04/01/21 15:27 97.9 F 96 16 148/58 98 Intake and Output 04/01/21 04/02/21 04/02/21 22:59 06:59 14:59 Intake Total 195 Balance 195 Intake: IV 125 Intake, IV Titration 70 Amount Sodium Chloride 0.9% 1, 70 000 ml @ 70 mls/hr IV . [id number] [facility] Rx#:[id number] Other: Voiding Method Toilet # Voids 3 Weight 89.8 kg PHYSICAL EXAMINATION: GENERAL: The patient is alert and oriented x3, not in any acute distress. Well developed, well nourished. HEENT: Pupils are round and equally reacting to light. EOMI. No scleral icterus. No conjunctival pallor. Normocephalic, atraumatic. No pharyngeal erythema. No thyromegaly. CARDIOVASCULAR: S1 and S2 present. No murmurs, rubs, or gallops. PULMONARY: Chest is clear to auscultation, no wheezing or crackles. ABDOMEN: Soft, nontender, nondistended, normoactive bowel sounds. No palpable organomegaly. MUSCULOSKELETAL: Deferred to orthopedic surgery EXTREMITIES: Deferred to orthopedic surgery NEUROLOGICAL: Gross neurological examination did not reveal any focal deficits. SKIN: No rashes. Results CBC & Chem 7: 04/02/21 06:52 Labs: Abnormal Lab Results - Last 24 Hours (Table) 04/02/21 Range/Units 06:52 Hgb 9.2 L (12.0-15.0) g/dL Hct 31.9 L (37.2-46.3) % MCV 74.7 L (80.0-97.0) fL MCH 21.5 L (27.0-32.0) pg MCHC 28.8 L (32.0-37.0) g/dL RDW 20.6 H (11.5-14.5) % Immature Gran # 0.06 H (0.00-0.04) X 10*3/uL Monocytes # 1.05 H (0.20-1.00) X 10*3/uL Assessment and Plan Plan: -Hypertension: to prevent perioperative hypotension patient was asked to hold off on amlodipine for next couple days because he wanted the blood pressure at home -Right knee arthroplasty: The patient is being discharged on aspirin 325 mg twice a day for DVT prophylaxis pain medications as per primary service -COPD without any acute exacerbation nicotine cessation counseling was provided patient continues to smoke 1 pack per day - gastric esophageal reflux disease Patient is clinically doing well can be discharged from medical perspective
== END 2021-04-02 14:09 | disposition home health service (06) ==
LOC: OR 11:35 → 4SSUR 15:14 → OR 04-02 14:09
PROVIDERS: ATTEND Orthopaedic Surgery
DX: M17.11 Unilateral primary osteoarthritis, right knee (principal); I10 Essential (primary) hypertension; F32.9 Major depressive disorder, single episode, unspecified; Z97.3 Presence of spectacles and contact lenses; J44.9 Chronic obstructive pulmonary disease, unspecified; K21.9 Gastro-esophageal reflux disease without esophagitis; R25.1 Tremor, unspecified; F41.9 Anxiety disorder, unspecified; B19.20 Unspecified viral hepatitis C without hepatic coma; Z98.51 Tubal ligation status; F17.200 Nicotine dependence, unspecified, uncomplicated; Z98.1 Arthrodesis status; Z90.710 Acquired absence of both cervix and uterus; Z97.2 Presence of dental prosthetic device (complete) (partial); Z83.3 Family history of diabetes mellitus; Z82.49 Family history of ischemic heart disease and other diseases of the circulatory system; Z80.9 Family history of malignant neoplasm, unspecified; Z79.1 Long term (current) use of non-steroidal anti-inflammatories (NSAID); Z79.899 Other long term (current) drug therapy; Z79.82 Long term (current) use of aspirin; Z79.51 Long term (current) use of inhaled steroids; Z88.8 Allergy status to other drugs, medicaments and biological substances
CPT/HCPCS: 97161; 64999; 64448; 76942; 85025; 88300; 73560; 27447; C1713; C1776; J2250; J1100; J2710; J0690 ×2; J2405; J2001; J3010; J2795; J0330; J2704

== ENCOUNTER → 2021-12-25 | Outpatient (CLI) | payer MEDICARE, OTHER ==
[2021-12-25 13:24] LABS: INR 0.9 (<1.2); Partial Thromboplastin Time 26.9 sec (22.0-30.0); Prothrombin Time 10.3 sec (9.0-12.0)
[2021-12-25 14:24] LABS: Appearance,Urine Cloudy (Clear); Bacteria,Urine Rare /hpf; Bilirubin,Urine Negative (Negative); Blood,Urine Negative (Negative); Color,Urine Yellow; Glucose,Urine (UA) Negative (Negative); Ketones,Urine Negative (Negative); Leukocyte Esterase,Urine Large (Negative); Mucus,Urine Many /hpf; Nitrite,Urine Negative (Negative); Protein,Urine Trace (Negative); Squamous Epithelial Cell,Urine 4 /hpf (0-4); WBC,Urine 7 /hpf (0-5)
[2021-12-25 19:12] LABS: ALT 16 U/L (8-44); AST 17 U/L (13-35); African American GFR (CKD) 118.6 (60.0-200.0); Albumin 4.2 g/dL (3.8-4.9); Alkaline Phosphatase 131 U/L (41-126); BUN/Creat Ratio 29.86 Ratio (12.00-20.00); Blood Urea Nitrogen 14.6 mg/dL (9.0-27.0); Calcium 9.1 mg/dL (8.7-10.3); Carbon Dioxide 22.4 mmol/L (20.0-27.5); Chloride 103 mmol/L (96-109); Globulin 2.6 g/dL (1.6-3.3); Glucose 88 mg/dL (70-110); Non-African American GFR(CKD) 102.3 (60.0-200.0); Potassium 4.1 mmol/L (3.5-5.5); Sodium 137 mmol/L (135-145); Total Bilirubin <0.15 mg/dL (0.30-1.20); Total Protein 6.8 g/dL (6.2-8.2)
[2021-12-25 19:37] LABS: Basophils # (A) 0.04 X 10*3/uL (0.00-0.10); Basophils % (A) 0.6 %; Eosinophils # (A) 0.18 X 10*3/uL (0.04-0.35); Eosinophils % (A) 2.5 %; HCT 38.6 % (37.2-46.3); Immature Grans, Automated 0.3 %; Lymphocytes # (A) 2.07 X 10*3/uL (0.90-5.00); Lymphocytes % (A) 28.9 %; MCH 25.6 pg (27.0-32.0); MCHC 31.1 g/dL (32.0-37.0); MCV 82.5 fL (80.0-97.0); Mean Platelet Volume 12.1 fL (9.5-12.2); Monocytes # (A) 0.62 X 10*3/uL (0.20-1.00); Monocytes % (A) 8.7 %; NRBC Per 100 WBC 0 /100 WBCS (0.0-0.0); Neutrophils # (A) 4.23 X 10*3/uL (1.80-7.70); Platelet Count 205 X 10*3/uL (140-440); RBC 4.68 X 10*6/uL (4.10-5.20); WBC 7.16 X 10*3/uL (4.50-10.00)
== END | disposition home or self-care (01) ==
LOC: LABPAT 12:19
PROVIDERS: ATTEND Orthopaedic Surgery
DX: Z01.812 Encounter for preprocedural laboratory examination (principal); M16.12 Unilateral primary osteoarthritis, left hip
CPT/HCPCS: 80053; 81001; 85025; 85610; 85730

== ENCOUNTER → 2021-12-26 | Outpatient (CLI) | payer MEDICARE, OTHER | END | disposition home or self-care (01) | LOC: LABPAT 12:47 | PROVIDERS: ATTEND Orthopaedic Surgery | DX: Z01.812 Encounter for preprocedural laboratory examination (principal) | CPT/HCPCS: 87070 ==

== ENCOUNTER 2021-12-30 05:45 | Day surgery (SDC) | payer MEDICARE, OTHER ==
[2021-12-29 11:09] VITALS: BMI 29.8
[~2021-12-30 05:45] MED LIST changes: -HYDROmorphone 0.5 MG/0.5 ML SYRINGE IVP PRN; +LACTATED RINGERS 1,000 ML IV SCH; -LIDOCAINE 1% (10MG/ML) FOR IV START INTRADERMA PRN; -ROPIVACAINE/EPI/CLONIDINE/KET 50 ML SYRINGE MISCELLANE PRN; -TRANEXAMIC ACID 1,000 MG in SODIUM CHLORIDE 0.9% 100 ML IVPB PRN; +TRANEXAMIC ACID IN NACL,ISO-OS 1,000 MG in SALINE 1 100ML.BAG IVPB PRN
[2021-12-30] MEDS ORDERED: TRANEXAMIC ACID IN NACL,ISO-OS 1,000 MG/100 ML BAG ONE (06:50)
[2021-12-30] MEDS ORDERED: PROPOFOL 10 MG/ML 20 ML VIAL IV ONE (06:50)
[2021-12-30] MEDS ORDERED: MIDAZOLAM 2 MG/2 ML VIAL ONE (06:50)
[2021-12-30] MEDS ORDERED: fentaNYL (PF) 50 MCG/ML 2 ML AMP ONE (06:50)
[2021-12-30] MEDS ORDERED: LIDOCAINE 1% INJ 10MG/ML (20 ML MDV) ONE (06:50)
[2021-12-30] MEDS ORDERED: ceFAZolin 1,000 MG in SODIUM CHLORIDE 0.9% 1,000 ML IRRIGATION ONE (07:23)
[2021-12-30] MEDS ORDERED: ROPIVACAINE 5 MG/ML 30 ML VIAL MISCELLANE ONE (07:26)
--- NOTE | 2021-12-30 08:15 | P.OP ---
Date of Procedure: 12/30/21 Preoperative Diagnosis: Severe osteoarthritis left hip Postoperative Diagnosis: Severe osteoarthritis left hip Procedure(s) Performed: Left total hip arthroplasty with a direct anterior approach Implants: [employer] Polarstem standard size 4 [employer] R3, 3 hole hemispherical acetabular shell, 52 mm [employer] Reflection 6.5 mm cancellus screw, 20 mm, 25 mm [employer] R3, XLPE 20 acetabular liner [employer]hew Oxinium femoral head 36 m, +4 All components were press-fit. The articulation is Oxinium on polyethylene. Anesthesia: spinal Surgeon: Fabian Aldana Microchip Specialist #1: Cathy Lewis Estimated Blood Loss (ml): 300 Pathology: other (Femoral head) Condition: stable Disposition: PACU Indications for Procedure: After failure of conservative treatment we discussed the surgical and nonsurgi juan treatment options at length. Patient wishes to proceed with a total hip arthroplasty with a direct anterior approach. Complications specific to this procedure were discussed at length, including but not limited to infection, leg length discrepancy, dislocation, nerve injury, and fracture. Covid-19 was also discussed at length with the patient, and they are aware of the current policies and procedures. The patient was given the option of delaying surgery, but they elect to proceed knowing these risks. Patient is aware of all these complications and informed consent was obtained Operative Findings: The operative findings are consistent with severe osteoarthritis of the left hip Description of Procedure: Patient was seen and evaluated in the preoperative area and the consent was reviewed. The operative site was marked with a skin marker. The patient was then brought to the operating room and given preoperative antibiotics intravenously. 1 g of Tranexamic acid was also given intravenously. A spinal anesthetic was administered by the anesthesia department. The patient was then placed on the [place] table with the bony prominences well-padded. The hip area was then prepped with a ChloraPrep solution and draped in the usual sterile fashion. A universal timeout was then performed, which confirmed the patient's name, surgical site, ALLERGIES, and procedure being performed on the consent. Next the incision site was located at 1 cm distal and 2 cm lateral to the anterior superior iliac spine. The skin and subcutaneous tissues were sharply incised. Incision was carefully dissected down to the fascia overlying the tensor fascia alirio muscle. This fascia was then incised in line with the incision. Care was taken to stay laterally in order to avoid injuring the lateral femoral cutaneous nerve. Next, using blunt finger dissection, the tensor fascia alirio muscle was dissected off its investing fascia. The muscle was then carefully retracted laterally with a cobra retractor over the lateral neck of the femur. Next, the circumflex vessels were identified and cauterized using the AquaMantis device. The anterior hip capsule was then exposed. The capsule was then opened and an inverted T fashion. Cobra retractors were then placed intracapsularly. The retractors were maintained intracapsular throughout the procedure. The proximal femur was then visualized. Fluoroscopic x-rays were then taken in order to evaluate the preoperative leg lengths. A small amount of traction was placed on the leg. The femoral neck was then osteotomized at the appropriate level above the lesser trochanter. A small wedge of bone was then removed from the remaining femoral head. Next, using a corkscrew the femoral head was removed from the acetabulum. On gross visual inspection, the femoral head had complete loss of articular cartilage and multiple periarticular osteophytes. The femoral head was then measured. Attention was then turned to the acetabulum. The acetabulum was exposed and any remaining labrum was excised. Sequential reaming of the acetabulum was performed using fluoroscopic guidance until there was a good bed of bleeding cancellus bone. When the appropriate size was reached, a trial was then placed. The position and fit of the trial was checked with fluoroscopy. The trial was then removed. Then, using fluoroscopic guidance, the final implant was impacted at 20 of anteversion and 40 of abduction, and fully seated in the acetabulum. 2 screws were then placed in the acetabulum. Again fluoroscopy was used to check position of the screws. Next, the liner was then impacted, with a 20 elevated liner located in the anterior superior quadrant. Component locking was confirmed. Attention was then directed to the femur. With the aid of the [place] table, the femur was externally rotated to approximately 130, extended, and adducted under the opposite leg. A side hook was then placed under the proximal femur, and the side hook elevator was used to elevate the proximal femur while releasing the capsule. Retractors were then placed. A capsular release was performed, as well as a release of the conjoined tendon, which afforded excellent visualization of the proximal femur. Next, a box osteotome was used to lateralize the proximal femur. A hand lacer was then used to locate the femoral canal. Sequential broaching was then performed with appropriate size which afforded excellent fixation in the proximal femur. A trial was then placed with appropriate head and neck, and the hip was gently reduced with the aid of the [place] table. Fluoroscopy was then used to check position of the components, as well as to ensure equal leg lengths. The hip was then gently di slocated and the trials were then removed. Final implants were then impacted and the hip was again reduced. Final fluoroscopic x-rays confirmed that the components were in anatomic position, as well as equal leg lengths. The hip was also taken through range of motion, and found to be stable. The hip was then copiously irrigated with antibiotic solution with pulsatile lavage. The hip was then irrigated with Irrisept solution. The soft tissues were then injected with a ropivacaine solution. A second dose of 1 g of Tranexamic acid was also given intravenously. The fascia was then closed with 2-0 strata fix suture. The subcutaneous tissue was closed with 3-0 Vicryl. The subcuticular tissue was closed with 3-0 strata fix suture. The skin was then closed with Exofin skin glue. After the glue and dried, and Optifoam silver impregnated dressing was applied. The patient was then transferred to the recovery room in stable condition. The registered dental assistant rda JACK Henderson was required due to the complexity of surgery, and the need for skilled surgical endoscopist for positioning, draping, exposure, retraction, and closure of the wound.
[2021-12-30] MEDS ORDERED: LACTATED RINGERS 1,000 ML IV ONE (08:29)
[2021-12-30] MEDS ORDERED: HYDROmorphone 0.5 MG/0.5 ML SYRINGE IVP PRN ×2 (08:54)
[2021-12-30] MEDS ORDERED: ONDANSETRON 4 MG/2 ML VIAL IVP PRN (08:54)
[2021-12-30] MEDS ORDERED: MAGNESIUM HYDROXIDE 2,400 MG/10 ML CUP PO PRN (08:54)
[2021-12-30] MEDS ORDERED: HYDROmorphone 0.2 MG/1 ML SYRINGE IVP PRN (08:54)
[2021-12-30] MEDS ORDERED: NALOXONE 0.4 MG/ML 1 ML VIAL IV PRN (08:54)
[2021-12-30] MEDS ORDERED: HYDROcodone/APAP 7.5-325MG 1 EACH TAB PO PRN (08:57)
--- NOTE | 2021-12-30 09:08 | FL ---
EXAMINATION TYPE: FL guidance operating room, XR Hip Limited LT DATE OF EXAM: 12/30/2021 FLUOROSCOPY Fluoroscopy time of 39 seconds was used during anterior left hip replacement. 2 image/s document/s t he procedure.
[2021-12-30] MEDS: HYDROmorphone 0.5 MG/0.5 ML SYRINGE IVP PRN ×2 (10:34→10:59)
--- NOTE | 2021-12-30 11:31 | XR ---
EXAMINATION TYPE: XR Hip Limited LT DATE OF EXAM: 12/30/2021 Comparison: None Clinical History: 66-year-old female post surgery Findings: Image shows placement of left hip total arthroplasty. The acetabular cup and femoral stem components of the prosthesis are well seated without periprosthetic fracture. Alignment grossly anatomic. Scatte red soft tissue air related to recent operation. Impression: Uncomplicated postoperative appearance left hip total arthroplasty.
[2021-12-30] MEDS: SODIUM CHLORIDE 0.9% 1,000 ML IV SCH (11:46)
[2021-12-30] MEDS: ASPIRIN 325 MG TAB PO SCH ×2 (11:46→20:24)
[2021-12-30] MEDS: HYDROcodone/APAP 7.5-325MG 1 EACH TAB PO PRN (12:52)
[2021-12-30] MEDS ORDERED: OXYBUTYNIN CHLORIDE 5 MG TAB PO PRN (13:47)
[2021-12-30] MEDS: IPRATROPIUM 0.5 MG/2.5 ML NEBU INHALATION SCH (19:43)
[2021-12-30] MEDS: SYMBICORT 80-4.5 MCG INHALER INHALATION SCH (19:53)
[2021-12-30] MEDS: PRIMIDONE 50 MG TAB PO SCH (20:24)
[2021-12-30] MEDS ORDERED: SENNOSIDES-DOCUSATE SODIUM 1 EACH TAB PO SCH (21:00)
--- NOTE | 2021-12-30 23:02 | P.CONS ---
History of Present Illness - Reason for Consult Consult date: 12/30/21 Medical management - Chief Complaint Total hip left arthroplasty - History of Present Illness Patient is a 65-year-old female with a known history of hypertension, osteoarthritis, COPD/asthma, GERD, recent urinary tract infection and is on antibiotics, anxiety/depression currently everyday smoker was admitted to hospital for left total hip arthroplasty due to severe osteoarthritis. Patient underwent left total hip arthroplasty with a direct anterior approach. Patient was given pain medication and pain is fairly controlled now. Denies any complaints of nausea or vomiting. No dizziness or lightheadedness. Postoperatively blood pressures low 98/60 mmHg. No cough or sputum production. No fever no chills. No laboratory available at this time. Review of Systems Constitutional: Patient denies any fever or chills . No generalized weakness or weight loss. Abdomen: Patient denied nausea vomiting and diarrhea and abdominal pain. Cardiovascular: Patient denies any chest pain or short of breath no palpitations. Respiratory: patient denied any cough or sputum production. No shortness of breath Neurologic: Patient denied any numbness or tingling headache. Musculoskeletal: Patient denies any complaints of joint swelling or deformity. Skin: Negative Psychiatric: Negative Endocrine: No heat or cold intolerance. No recent weight gain. Genitourinary: No dysuria or hematuria. All other 14 point ROS negative except the above Past Medical History Past Medical History: Asthma, COPD, GERD/Reflux, Hypertension, Osteoarthritis (OA) Additional Past Medical History / Comment(s): hand tremors, RECENT URINARY TRACT INFECTIONS- TREATED WITH ANTIBIOTICS ,HYPOGLYCEMIA History of Any Multi-Drug Resistant Organisms: None Reported Past Surgical History: Back Surgery, Cholecystectomy, Joint Replacement, Orthopedic Surgery, Tubal Ligation Additional Past Surgical History / Comment(s): BACK FUSION, cervical fusion, left ANKLE SURGERY, left knee arthoscopy, TOTAL RIGHT HIP Past Anesthesia/Blood Transfusion Reactions: No Reported Reaction Past Psychological History: Anxiety, Depression Smoking Status: Current some day smoker Past Alcohol Use History: Rare Additional Past Alcohol Use History / Comment(s): STARTED SMOKING AT AGE 21 QUIT SMOKING 12/23/21 SMOKED 1/2 PPD STATES SHE IS VAPING Past Drug Use History: None Reported - Past Family History Mother Family Medical History: Deep Vein Thrombosis (DVT) Sister(s) Family Medical History: Cancer Medications and Allergies Home Medications Medication Instructions Recorded Confirmed Type Primidone [Mysoline] 100 mg PO BID 04/09/15 12/30/21 History Esomeprazole Magnesium [NexIUM] 40 mg PO DAILY 04/23/15 12/30/21 History amLODIPine [Norvasc] 10 mg PO DAILY 04/23/15 12/30/21 History Ibuprofen [Motrin] 800 mg PO AC-TID PRN 09/28/17 12/30/21 History ARIPiprazole [Abilify] 5 mg PO DAILY 05/25/18 12/30/21 History Albuterol Inhaler [Ventolin Hfa 2 puff INHALATION RT-Q6H PRN 02/03/21 12/30/21 History Inhaler] Fluticasone/Umeclidin/Vilanter 1 puff INHALATION RT-DAILY 02/03/21 12/30/21 History [Trelegy Ellipta 100-62.5-25] Oxybutynin Chloride [Ditropan] 5 mg PO DAILY PRN 02/03/21 12/30/21 History PARoxetine HCL [Paxil] 30 mg PO DAILY 02/03/21 12/30/21 History rOPINIRole HCL [Requip] 1 mg PO HS 02/03/21 12/30/21 History Sennosides [Senokot] 2 tab PO DAILY PRN #60 tablet 03/31/21 12/30/21 Rx Fluticasone Nasal [place] [Flonase 2 spray EA NOSTRIL DAILY 12/29/21 12/30/21 History Nasal [place]] Multivitamins, Thera [Multivitamin 1 tab PO DAILY 12/29/21 12/30/21 History (formulary)] Sulfamethoxazole/Trimethoprim 1 each PO BID 12/29/21 12/30/21 History [Bactrim DS 800-160 mg] Aspirin 325 mg PO BID #60 tab 12/30/21 Rx HYDROcodone/APAP 7.5-325MG [[place] 1 - 2 tab PO Q6H PRN #32 tab 12/30/21 Rx 7.5-325] Ondansetron Odt [Zofran Odt] 1 tab PO Q8HR PRN #10 tab 12/30/21 Rx Sennosides [Senokot] 2 tab PO DAILY PRN #60 tablet 12/30/21 Rx Allergies Allergy/AdvReac Type Severity Reaction Status Date / Time [place]-YXW-QdF Reductase AdvReac Myalgia Verified 12/30/21 06:07 Inhibitor [Ikmustt-Dnm-Hhi Reductase Inhibitor] varenicline [From Chantix] AdvReac Nightmares Verified 12/30/21 06:07 Physical Exam Vitals: Vital Signs Temp Pulse Resp BP Pulse Ox 12/30/21 11:26 98.4 F 81 18 123/68 93 L 12/30/21 10:50 68 16 114/55 94 L 12/30/21 09:22 64 16 98/60 12/30/21 09:07 67 16 100/64 97 12/30/21 08:52 62 16 110/56 98 12/30/21 08:37 97 F L 74 16 126/55 99 12/30/21 06:10 98.8 F 84 16 179/75 98 Intake and Output 12/29/21 12/30/21 12/30/21 22:59 06:59 14:59 Intake Total 1050 351 Output Total 700 Balance 1050 -349 Intake: IV 1050 351 Output: Urine 400 Estimated Blood Loss 300 Other: # Voids 2 Weight 86 kg 86 kg PHYSICAL EXAMINATION: Patient is lying in the bed comfortably, no acute distress, awake alert and oriented.. HEENT: Normocephalic. Neck is supple. Pupils reactive. Nostrils clear. Oral cavity is moist. Neck reveals no JVD, carotid bruits, or thyromegaly. CHEST EXAMINATION: Trachea is central. Symmetrical expansion.Scattered rhonchi. Lung wild clear to auscultation and percussion. CARDIAC: Normal S1, S2 with no gallops. No murmurs ABDOMEN: Soft. Bowel sounds normal. No organomegaly. No abdominal bruits. Extremities: reveal no edema. No clubbing or cyanosis Neurologically awake, alert, oriented x3 with well-coordinated movements. No focal deficits noted Skin: No rash or skin lesions. Psychiatric: Cooperative. Nonsuicidal Musculoskeletal: No joint swelling or deformity. Normal range of motion.Left hip surgical site bandaged. No leg swelling. Assessment and Plan Assessment: Left total hip arthroplasty due to severe osteoarthritis. Postoperative day 0 Hypotension improved at this time. Hypertension currently blood pressure is controlled Asthma/COPD Currently everyday smoker Anxiety/depression GERD Osteoarthritis DVT prophylaxis Plan: Patient will be continued on current pain medications and limit narcotic pain medication use due to hypotension. Will start on blood pressure medications once blood pressure improves. Continue with duo nebs and home medications. Follow-up CBC and BMP tomorrow. Patient was encouraged with incentive spirometry and PT OT. Smoking cessation has been counseled. Thank you for consulting internal medicine service. We will follow with you. Time with Patient: Greater than 30
[2021-12-31] MEDS: SODIUM CHLORIDE 0.9% 1,000 ML IV SCH ×2 (01:01→03:59)
[2021-12-31] MEDS: HYDROcodone/APAP 7.5-325MG 1 EACH TAB PO PRN ×2 (04:20→09:34)
[2021-12-31] MEDS ORDERED: NON FORMULARY DRUG (Fluticasone/Umeclidin/Vilanter [Trelegy Ellipta 100-62.5-25] 1 EACH Bl INHALATION SCH (08:00)
[2021-12-31] MEDS ORDERED: SYMBICORT 80-4.5 MCG INHALER INHALATION SCH (08:00)
[2021-12-31] MEDS ORDERED: IPRATROPIUM 0.5 MG/2.5 ML NEBU INHALATION SCH (08:00)
[2021-12-31] MEDS ORDERED: PANTOPRAZOLE 40 MG TABLET PO SCH (09:00)
[2021-12-31] MEDS ORDERED: PARoxetine 10 MG TAB PO SCH (09:00)
[2021-12-31] MEDS ORDERED: ARIPiprazole 5 MG TAB PO SCH (09:00)
[2021-12-31] MEDS ORDERED: MELOXICAM 7.5 MG TAB PO SCH (09:00)
[2021-12-31] MEDS ORDERED: amLODIPine 10 MG TAB PO SCH (09:00)
[2021-12-31] MEDS: SYMBICORT 80-4.5 MCG INHALER INHALATION SCH (09:13)
[2021-12-31] MEDS: IPRATROPIUM 0.5 MG/2.5 ML NEBU INHALATION SCH (09:13)
[2021-12-31 09:32] VITALS: BP 140/67; PULSE 79; RESP 17; TEMP 97.8
[2021-12-31 09:36] LABS: Basophils # (A) 0.02 X 10*3/uL (0.00-0.10); Basophils % (A) 0.3 %; Eosinophils # (A) 0.05 X 10*3/uL (0.04-0.35); Eosinophils % (A) 0.7 %; HCT 31.5 % (37.2-46.3); HGB 9.7 g/dL (12.0-15.0); Immature Grans, Automated 0.3 %; Lymphocytes # (A) 1.78 X 10*3/uL (0.90-5.00); Lymphocytes % (A) 24.1 %; MCH 25.4 pg (27.0-32.0); MCHC 30.8 g/dL (32.0-37.0); MCV 82.5 fL (80.0-97.0); Mean Platelet Volume 12.3 fL (9.5-12.2); Monocytes # (A) 0.81 X 10*3/uL (0.20-1.00); NRBC Per 100 WBC 0 /100 WBCS (0.0-0.0); Neutrophils # (A) 4.71 X 10*3/uL (1.80-7.70); Neutrophils % (A) 63.6 %; Platelet Count 177 X 10*3/uL (140-440); RBC 3.82 X 10*6/uL (4.10-5.20); RDW 17.2 % (11.5-14.5); WBC 7.39 X 10*3/uL (4.50-10.00)
[2021-12-31 09:41] LABS: African American GFR (CKD) 119.6 (60.0-200.0); Anion Gap 10.2 mmol/L (10.00-18.00); BUN/Creat Ratio 27.25 Ratio (12.00-20.00); Calcium 8.7 mg/dL (8.7-10.3); Carbon Dioxide 22.8 mmol/L (20.0-27.5); Non-African American GFR(CKD) 103.2 (60.0-200.0)
[2021-12-31] MEDS: PRIMIDONE 50 MG TAB PO SCH (10:43)
[2021-12-31] MEDS: ASPIRIN 325 MG TAB PO SCH (10:43)
--- NOTE | 2021-12-31 11:17 | P.DS ---
Providers Expected date of discharge: 12/31/21 Attending physician: Fabian Aldana Consults: 12/30/21 08:54 Consult Physician Routine Consulting Provider: Zaira Byrd Consult Reason/Comments: medical management Do you want consulting provider notified?: Yes Primary care physician: Juju Fungbal - Discharge Diagnosis(es) (1) Primary osteoarthritis of left hip Current Visit: Yes Status: Acute (2) Status post hip replacement Current Visit: No Status: Acute Hospital Course: This is a 66-year-old Female with known history of degenerative arthritis of the Left hip. The patient presents for evaluation. After discussion and consideration patient elects to proceed with total hip arthroplasty with direct anterior approach. The patient is seen preoperatively by primary care physician and cleared for surgery. Patient is admitted to [facility] on 12/30/2021 for total hip arthroplasty with direct anterior approach. The procedure is performed without complication or sequelae. The patient is doing well postoperatively. Labs and vital signs are stable on day of discharge. On day of discharge patient's hip incision is healing well. There is minimal erythema. There is no drainage noted at this time. There is minimal soft tissu e swelling to the hip and thigh. Patient has full foot and ankle motion without difficulty or pain. Neurovascular status to the lower extremity is intact. Patient is discharged to home in good condition. Please see med rec for accurate list of home medications. Patient Condition at Discharge: Good Plan - Discharge Summary Discharge Rx Participant: No New Discharge Prescriptions: New Aspirin 325 mg PO BID #60 tab HYDROcodone/APAP 7.5-325MG [[place] 7.5-325] 1 - 2 tab PO Q6H PRN #32 tab PRN Reason: Pain Sennosides [Senokot] 2 tab PO DAILY PRN #60 tablet PRN Reason: Constipation Ondansetron Odt [Zofran Odt] 1 tab PO Q8HR PRN #10 tab PRN Reason: Nausea No Action Primidone [Mysoline] 100 mg PO BID amLODIPine [Norvasc] 10 mg PO DAILY Esomeprazole Magnesium [NexIUM] 40 mg PO DAILY Ibuprofen [Motrin] 800 mg PO AC-TID PRN PRN Reason: Pain ARIPiprazole [Abilify] 5 mg PO DAILY rOPINIRole HCL [Requip] 1 mg PO HS Oxybutynin Chloride [Ditropan] 5 mg PO DAILY PRN PRN Reason: URINARY PROBLEMS Fluticasone Nasal [place] [Flonase Nasal [place]] 2 spray EA NOSTRIL DAILY Sulfamethoxazole/Trimethoprim [Bactrim DS 800-160 mg] 1 each PO BID PARoxetine HCL [Paxil] 30 mg PO DAILY Albuterol Inhaler [Ventolin Hfa Inhaler] 2 puff INHALATION RT-Q6H PRN PRN Reason: Shortness Of Breath Fluticasone/Umeclidin/Vilanter [Trelegy Ellipta 100-62.5-25] 1 puff INHALATION RT-DAILY Sennosides [Senokot] 2 tab PO DAILY PRN #60 tablet PRN Reason: Constipation Multivitamins, Thera [Multivitamin (formulary)] 1 tab PO DAILY Discharge Medication List Primidone [Mysoline] 100 mg PO BID 04/09/15 [History] Esomeprazole Magnesium [NexIUM] 40 mg PO DAILY 04/23/15 [History] amLODIPine [Norvasc] 10 mg PO DAILY 04/23/15 [History] Ibuprofen [Motrin] 800 mg PO AC-TID PRN 09/28/17 [History] ARIPiprazole [Abilify] 5 mg PO DAILY 05/25/18 [History] Albuterol Inhaler [Ventolin Hfa Inhaler] 2 puff INHALATION RT-Q6H PRN 02/03/21 [History] Fluticasone/Umeclidin/Vilanter [Trelegy Ellipta 100-62.5-25] 1 puff INHALATION RT-DAILY 02/03/21 [History] Oxybutynin Chloride [Ditropan] 5 mg PO DAILY PRN 02/03/21 [History] PARoxetine HCL [Paxil] 30 mg PO DAILY 02/03/21 [History] rOPINIRole HCL [Requip] 1 mg PO HS 02/03/21 [History] Sennosides [Senokot] 2 tab PO DAILY PRN #60 tablet 03/31/21 [Rx] Fluticasone Nasal [place] [Flonase Nasal [place]] 2 spray EA NOSTRIL DAILY 12/29/21 [History] Multivitamins, Thera [Multivitamin (formulary)] 1 tab PO DAILY 12/29/21 [History] Sulfamethoxazole/Trimethoprim [Bactrim DS 800-160 mg] 1 each PO BID 12/29/21 [History] Aspirin 325 mg PO BID #60 tab 12/30/21 [Rx] HYDROcodone/APAP 7.5-325MG [[place] 7.5-325] 1 - 2 tab PO Q6H PRN #32 tab 12/30/21 [Rx] Ondansetron Odt [Zofran Odt] 1 tab PO Q8HR PRN #10 tab 12/30/21 [Rx] Sennosides [Senokot] 2 tab PO DAILY PRN #60 tablet 12/30/21 [Rx] Follow up Appointment(s)/Referral(s): [facility], [NON-STAFF] - As Needed Fabian Aldana DO [Doctor of Osteopathic Medicine] - 2 Weeks Activity/Diet/Wound Care/Special Instructions: Weightbearing as tolerated with walker. Leave dressing intact. Dressing may be removed by home care nurse or by patient in 7 days. Then change dressing twice daily until follow up. May shower with initial dressing intact and after removal. If dressing become saturated, please remove. Please take aspirin 325mg twice daily for 30 days to prevent blood clots. Recommend use of compression stockings daily until follow up to help prevent swelling and blood clots. May remove at night before sleeping. Please follow-up with [facility] in 2 weeks and call with any questions or concerns, . Discharge Disposition: HOME WITH HOME HEALTH SERVICES
--- NOTE | 2021-12-31 13:26 | P.PN ---
Subjective Progress Note Date: 12/31/21 - Reason for Consult Consult date: 12/30/21 Medical management - Chief Complaint Total hip left arthroplasty - History of Present Illness Patient is a 65-year-old female with a known history of hypertension, osteoa rthritis, COPD/asthma, GERD, recent urinary tract infection and is on antibiotics, anxiety/depression currently everyday smoker was admitted to hospital for left total hip arthroplasty due to severe osteoarthritis. Patient underwent left total hip arthroplasty with a direct anterior approach. Patient was given pain medication and pain is fairly controlled now. Denies any complaints of nausea or vomiting. No dizziness or lightheadedness. Postoperatively blood pressures low 98/60 mmHg. No cough or sputum production. No fever no chills. No laboratory available at this time. 12/31/2021 Patient is seen in follow-up status post total left hip arthroplasty being followed by orthopedics. Plans for discharge today. Blood pressure medications were on hold and encourage the patient to resume home medications and continue to monitor blood pressure in the outpatient setting and follow-up with primary care provider this week. Incentive spirometer at the bedside and encourage the patient to continue using at least 10 times every hour while awake. Encouraged activity with restrictions as noted per orthopedics and recommended outpatient follow-up with orbital. Patient reports the passing gas although no bowel movement as of yet. Patient denies any chest pain, shortness of breath, or palpitations. Patient is afebrile. Review of systems: Constitutional: No reports of fatigue, fever, or chills Cardiovascular: No reports of chest pain or palpitations Respiratory: No reports of shortness of breath or cough GI: reports of nausea, no reports of of vomiting, patient is passing gas : No reports of dysuria or retention Neurovascular: reports of generalized weakness, reports mild left hip discomfort All medications have been reviewed PHYSICAL EXAMINATION: GENERAL: The patient is alert and oriented x4, Well developed, well nourished. HEENT: Pupils are round and equally reacting to light. EOMI. no scleral icterus. No conjunctival pallor. Normocephalic, atraumatic. No pharyngeal erythema. No thyromegaly. CARDIOVASCULAR: S1 and S2 muffled PULMONARY: diminished breath sounds bilaterally with no wheezing or rhonchi noted. ABDOMEN: soft. Nontender on exam. obese. non-distended, normoactive bowel sounds. No palpable organomegaly. MUSCULOSKELETAL: No joint swelling or deformity. EXTREMITIES: No cyanosis, clubbing, or pedal edema. Left hip surgical dressing is intact NEUROLOGICAL: Gross neurological examination did not reveal any focal deficits. SKIN: No rashes. Assessment: Left total hip arthroplasty due to severe osteoarthritis. Postoperative day 1 Hypotension improved at this time. Hypertension currently blood pressure is controlled Asthma/COPD Currently everyday smoker Anxiety/depression GERD Osteoarthritis GI prophylaxis DVT prophylaxis Full code Plan: Plan: Patient will be continued on current pain medications and limit narcotic pain medication use due to hypotension. Blood pressures are improving and okay to resume appropriate home medications. Encourage the patient to follow-up with primary care provider and monitor blood pressures closely and keep a diary of blood pressure readings. Repeat labs show hemoglobin is stable at 9.7, white blood count within normal limits, BMP within normal limits Patient was encouraged with incentive spirometry and to continue using at least 10 times every hour even in the outpatient setting. Smoking cessation has been counseled. Thank you for this consultation and we will continue to follow with you during hospitalization. Patient anticipates discharge today. The impression and plan of care has been dictated by Drea Murrieta, nurse practitioner as directed. MD Es I have performed a history and examination and MDM of this patient, discussed the same with the dictator, and agree with the dictator's assessment and plan as written ,documented as a scribe. Based on total visit time, I have performed more than 50% of the visit. Objective - Vital Signs Vital signs: Vital Signs Temp 98 F 12/31/21 07:12 Pulse 80 12/31/21 09:23 Resp 18 12/31/21 07:12 BP 110/56 12/31/21 07:12 Pulse Ox 99 12/31/21 01:17 Intake & Output 12/30/21 12/31/21 12/31/21 18:59 06:59 18:59 Intake Total 351 Output Total 700 Balance -349 Weight 86 kg Intake: IV 351 Output: Urine 400 Estimated Blood Loss 300 Other: # Voids 1 3 # Bowel Movements 1 - Labs CBC & Chem 7: 12/31/21 04:31 12/31/21 04:31
== END 2021-12-31 11:52 | disposition home health service (06) ==
LOC: OR 05:45 → 4SSUR 08:37 → OR 12-31 11:52
PROVIDERS: ATTEND Orthopaedic Surgery
DX: M16.12 Unilateral primary osteoarthritis, left hip (principal); I10 Essential (primary) hypertension; F32.A Depression, unspecified; H53.8 Other visual disturbances; M25.561 Pain in right knee; J44.9 Chronic obstructive pulmonary disease, unspecified; K21.9 Gastro-esophageal reflux disease without esophagitis; F41.9 Anxiety disorder, unspecified; E16.2 Hypoglycemia, unspecified; F17.290 Nicotine dependence, other tobacco product, uncomplicated; I95.9 Hypotension, unspecified; Z96.641 Presence of right artificial hip joint; Z79.899 Other long term (current) drug therapy; Z88.8 Allergy status to other drugs, medicaments and biological substances; Z98.890 Other specified postprocedural states; Z87.440 Personal history of urinary (tract) infections; Z90.49 Acquired absence of other specified parts of digestive tract; Z98.1 Arthrodesis status; Z98.51 Tubal ligation status; Z97.3 Presence of spectacles and contact lenses; Z83.3 Family history of diabetes mellitus; Z82.49 Family history of ischemic heart disease and other diseases of the circulatory system; Z80.9 Family history of malignant neoplasm, unspecified
CPT/HCPCS: 94640 ×3; 97116; 97161; 97535; 97165; 86900; 86901; 80048; 85025; 86850; 88300; 73501; 36415; 27130; C1776; J2250; J1100; J0690 ×2; J2405; J2001; J3010; J2795; J2704; J1170

== ENCOUNTER 2022-01-10 18:19 | Emergency (ER) | payer MEDICARE, OTHER ==
[2022-01-10] MEDS ORDERED: ONDANSETRON 4 MG/2 ML VIAL IVP STA (18:41)
[2022-01-10] MEDS ORDERED: HYDROmorphone 1 MG/ML 1 ML SYRINGE IVP STA (18:41)
[2022-01-10] MEDS ORDERED: SODIUM CHLORIDE 0.9% 1,000 ML IV STA (18:41)
--- NOTE | 2022-01-10 18:44 | ED ---
Lower Extremity Injury HPI - General Chief Complaint: Extremity Injury, Lower Stated Complaint: Hip Pain Time Seen by Provider: 01/10/22 18:35 Source: EMS, RN notes reviewed Mode of arrival: EMS Limitations: no limitations - History of Present Illness Initial Comments: This is a pleasant 66-year-old female with history of COPD, hypertension, o steoarthritis she presents to the emergency department today complaining of left hip pain. Patient had total hip arthroplasty in December [address] Fabian Aldana. Around that time patient also had a urinary tract infection but finished antibiotics. She states that today she bent down when she was trying to retrieve a pet rat. States she felt a pop in her left hip and since then has had sharp pain and left hip which is radiating down the entire left leg. Patient is able to ambulate states is much harder. Patient took her hydrocodone and ibuprofen at home but has significant pain. Patient denying any other injuries or pain. Patient states up until 3 hours ago when this happened she was progressing along fine since his surgery. Patient states she feels well otherwise. Patient not on anticoagulation. Patient states she is taking a daily aspirin. No headache, no fever or chills, no changes in vision or hearing, no sore throat or difficulty with speech, no neck pain, no chest pain or shortness of breath, no abdominal pain, no nausea or vomiting, no changes in urination or bowel movements, no numbness or tingling, no skin rashes or lesions. - Related Data Home Medications Medication Instructions Recorded Confirmed Primidone [Mysoline] 100 mg PO BID 04/09/15 12/30/21 Esomeprazole Magnesium [NexIUM] 40 mg PO DAILY 04/23/15 12/30/21 amLODIPine [Norvasc] 10 mg PO DAILY 04/23/15 12/30/21 ARIPiprazole [Abilify] 5 mg PO DAILY 05/25/18 12/30/21 Albuterol Inhaler [Ventolin Hfa 2 puff INHALATION RT-Q6H PRN 02/03/21 12/30/21 Inhaler] Fluticasone/Umeclidin/Vilanter 1 puff INHALATION RT-DAILY 02/03/21 12/30/21 [Trelegy Ellipta 100-62.5-25] Oxybutynin Chloride [Ditropan] 5 mg PO DAILY PRN 02/03/21 12/30/21 PARoxetine HCL [Paxil] 30 mg PO DAILY 02/03/21 12/30/21 rOPINIRole HCL [Requip] 1 mg PO HS 02/03/21 12/30/21 Fluticasone Nasal [place] [Flonase 2 spray EA NOSTRIL DAILY 12/29/21 12/30/21 [place]] Multivitamins, Thera [Multivitamin 1 tab PO DAILY 12/29/21 12/30/21 (formulary)] Sulfamethoxazole/Trimethoprim 1 each PO BID 12/29/21 12/30/21 [Bactrim DS 800-160 mg] Previous Rx's Medication Instructions Recorded Sennosides [Senokot] 2 tab PO DAILY PRN #60 tablet 03/31/21 Aspirin 325 mg PO BID #60 tab 12/30/21 HYDROcodone/APAP 7.5-325MG [[place] 1 - 2 tab PO Q6H PRN #32 tab 12/30/21 7.5-325] Ondansetron Odt [Zofran Odt] 1 tab PO Q8HR PRN #10 tab 12/30/21 Sennosides [Senokot] 2 tab PO DAILY PRN #60 tablet 12/30/21 Allergies Allergy/AdvReac Type Severity Reaction Status Date / Time Rgrfzyh-FTI-RbT Reductase AdvReac Myalgia Verified 01/10/22 18:24 Inhibitor [Jwbdakm-Smv-Avh Reductase Inhibitor] varenicline [From Chantix] AdvReac Nightmares Verified 01/10/22 18:24 Review of Systems ROS Statement: Those systems with pertinent positive or pertinent negative responses have been documented in the HPI. ROS Other: All systems not noted in ROS Statement are negative. Past Medical History Past Medical History: Asthma, COPD, GERD/Reflux, Hypertension, Osteoarthritis (OA) Additional Past Medical History / Comment(s): hand tremors, hepatitis c-pt states she is not Hep C postive History of Any Multi-Drug Resistant Organisms: None Reported Past Surgical History: Back Surgery, Cholecystectomy, Joint Replacement, Orthopedic Surgery, Tubal Ligation Additional Past Surgical History / Comment(s): BACK FUSION, cervical fusion, left ANKLE SURGERY, left knee arthoscopy, TOTAL RIGHT HIP Past Anesthesia/Blood Transfusion Reactions: No Reported Reaction Past Psychological History: Anxiety, Depression Smoking Status: Current every day smoker Past Alcohol Use History: Rare Past Drug Use History: None Reported - Past Family History Mother Family Medical History: Deep Vein Thrombosis (DVT) Sister(s) Family Medical History: Cancer General Exam - General Exam Comments Initial Comments: 66-year-old female in minimal distress secondary to left hip and left leg pain. Does not appear to be ill or toxic. Limitations: no limitations General appearance: alert, in no apparent distress Head exam: Present: atraumatic, normocephalic, normal inspection Eye exam: Present: normal appearance, PERRL, EOMI. Absent: scleral icterus, conjunctival injection, periorbital swelling ENT exam: Present: normal exam, normal oropharynx, mucous membranes moist. Absent: mucous membranes dry Neck exam: Present: normal inspection. Absent: tenderness, meningismus, lymphadenopathy Respiratory exam: Present: normal lung sounds bilaterally. Absent: respiratory distress, wheezes, rales, rhonchi, stridor Cardiovascular Exam: Present: regular rate, normal rhythm, normal heart sounds. Absent: systolic murmur, diastolic murmur, rubs, gallop, clicks GI/Abdominal exam: Present: soft, normal bowel sounds. Absent: distended, tenderness, guarding, rebound, rigid Extremities exam: Present: full ROM, tenderness (Patient has some tenderness over the lateral aspect of the left hip as well as minimal tenderness over the surgical incision. However there is no dehiscence. No evidence of secondary infection. Sutures are intact.), normal capillary refill, pedal edema (Scant distal edema), other (Distal pulses intact. No evidence of infectious process. No knee or ankle tenderness.). Absent: joint swelling, calf tenderness Back exam: Present: normal inspection, full ROM. Absent: tenderness Neurological exam: Present: alert, oriented X3, CN II-XII intact Psychiatric exam: Present: normal affect, normal mood Skin exam: Present: warm, dry, intact, normal color. Absent: rash Course Vital Signs 01/10/22 18:24 Temperature 100.6 F H Pulse Rate 90 Respiratory 20 Rate Blood Pressure 142/74 O2 Sat by Pulse 92 L Oximetry - Reevaluation(s) Reevaluation #1: 01/10/22 21:08 Medical record is reviewed Symptoms are improved here in the emergency department Patient is informed of results and questions answered Patient in no distress No evidence of respiratory distress. Patient did have a low-grade fever of 100.6 on arrival. However no evidence of febrile focus. Did discuss the possibility of COVID-19. - Consultations Consultation #1: Case discussed in detail with the on-call [facility]opedic physician [facility], Dr. Tan. Crum with outpatient follow-up. Medical Decision Making - Medical Decision Making Patient presents after injuring her left hip which she recently had a ADAM on. Patient describing a popping sensation when she was bending over. Patient has pain from the left hip down to the ankle which is exacerbated by movement and ambulation. Patient also noted to have a low-grade fever of 100.6 in triage. However denies any other symptomatology which would explain this. Patient did have a urinary tract infection around the time of the surgery on December 30 and states she finished antibiotics. Note that the patient is a current every day cigarette smoker and has a chronic cough. We'll order a chest x-ray in addition to other imaging. Patient's pulse oximetry of 92%. 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 This is likely normal for the patient. No respiratory distress at time of discharge. Patient is feeling better otherwise. Diagnostic workup appears essentially normal. Case was discussed in detail with on-call orthopedics. Patient to follow-up on Wednesday with her orthopedic surgeon. Patient's initial temperature 100.6 was investigated. No evidence of infectious focus. Did discuss possibility of COVID-19. Patient no she can return here at any time for any symptoms worsen or rubs arise. All questions answered. Patient has pain medications at home. Patient was told to return to the ER for any signs or symptoms worsen. Told to return immediately if any other problems arise. All questions answered. Treatment plan discussed. Patient in agreement Every effort has been made to ensure accuracy of this dictation. However, due to the limitations of electronic medical records and dictation devices, errors in charting still occur. - Lab Data Result diagrams: 01/10/22 19:23 01/10/22 19: Lab Results 01/10/22 01/10/22 01/10/22 Range/Units 19:23 19: 19: WBC 7.7 (3.8-10.6) k/uL RBC 3.81 (3.80-5.40) m/uL Hgb 10.1 L (11.4-16.0) gm/dL Hct 31.8 L (34.0-46.0) % MCV 83.6 (80.0-100.0) fL MCH 26.5 (25.0-35.0) pg MCHC 31.8 (31.0-37.0) g/dL RDW 17.2 H (11.5-15.5) % Plt Count 308 (150-450) k/uL MPV 7.7 Neutrophils % 66 % Lymphocytes % 23 % Monocytes % 5 % Eosinophils % 2 % Basophils % 0 % Neutrophils # 5.1 (1.3-7.7) k/uL Lymphocytes # 1.8 (1.0-4.8) k/uL Monocytes # 0.4 (0-1.0) k/uL Eosinophils # 0.2 (0-0.7) k/uL Basophils # 0.0 (0-0.2) k/uL Hypochromasia Moderate Anisocytosis Slight Sodium 137 (137-145) mmol/L Potassium 3.7 (3.5-5.1) mmol/L Chloride 107 (98-107) mmol/L Carbon Dioxide 25 (22-30) mmol/L Anion Gap 5 mmol/L BUN 14 (7-17) mg/dL Creatinine 0.54 (0.52-1.04) mg/dL Est GFR (CKD-EPI)AfAm >90 (>60 ml/min/1.73 sqM) Est GFR (CKD-EPI)NonAf >90 (>60 ml/min/1.73 sqM) Glucose 101 H (74-99) mg/dL Plasma Lactic Acid Bib (0.7-2.0) mmol/L Calcium 8.6 (8.4-10.2) mg/dL Total Bilirubin 0.3 (0.2-1.3) mg/dL AST 20 (14-36) U/L ALT 14 (4-34) U/L Alkaline Phosphatase 120 (38-126) U/L C-Reactive Protein 0.7 (<1.0) mg/dL Total Protein 6.8 (6.3-8.2) g/dL Albumin 3.8 (3.5-5.0) g/dL Urine Color Yellow Urine Appearance Cloudy H (Clear) Urine pH 7.0 (5.0-8.0) Ur Specific [place] 1.016 (1.001-1.035) Urine Protein Negative (Negative) Urine Glucose (UA) Negative (Negative) Urine Ketones Negative (Negative) Urine Blood Negative (Negative) Urine Nitrite Negative (Negative) Urine Bilirubin Negative (Negative) Urine Urobilinogen <2.0 (<2.0) mg/dL Ur Leukocyte Esterase Moderate H (Negative) Urine RBC <1 (0-5) /hpf Urine WBC 9 H (0-5) /hpf Ur Squamous Epith Cells 2 (0-4) /hpf Amorphous Sediment Rare H (None) /hpf Urine Bacteria Rare H (None) /hpf Urine Mucus Rare H (None) /hpf 01/10/22 Range/Units 19:23 WBC (3.8-10.6) k/uL RBC (3.80-5.40) m/uL Hgb (11.4-16.0) gm/dL Hct (34.0-46.0) % MCV (80.0-100.0) fL MCH (25.0-35.0) pg MCHC (31.0-37.0) g/dL RDW (11.5-15.5) % Plt Count (150-450) k/uL MPV Neutrophils % % Lymphocytes % % Monocytes % % Eosinophils % % Basophils % % Neutrophils # (1.3-7.7) k/uL Lymphocytes # (1.0-4.8) k/uL Monocytes # (0-1.0) k/uL Eosinophils # (0-0.7) k/uL Basophils # (0-0.2) k/uL Hypochromasia Anisocytosis Sodium (137-145) mmol/L Potassium (3.5-5.1) mmol/L Chloride (98-107) mmol/L Carbon Dioxide (22-30) mmol/L Anion Gap mmol/L BUN (7-17) mg/dL Creatinine (0.52-1.04) mg/dL Est GFR (CKD-EPI)AfAm (>60 ml/min/1.73 sqM) Est GFR (CKD-EPI)NonAf (>60 ml/min/1.73 sqM) Glucose (74-99) mg/dL Plasma Lactic Acid Bib 1.8 (0.7-2.0) mmol/L Calcium (8.4-10.2) mg/dL Total Bilirubin (0.2-1.3) mg/dL AST (14-36) U/L ALT (4-34) U/L Alkaline Phosphatase (38-126) U/L C-Reactive Protein (<1.0) mg/dL Total Protein (6.3-8.2) g/dL Albumin (3.5-5.0) g/dL Urine Color Urine Appearance (Clear) Urine pH (5.0-8.0) Ur Specific [place] (1.001-1.035) Urine Protein (Negative) Urine Glucose (UA) (Negative) Urine Ketones (Negative) Urine Blood (Negative) Urine Nitrite (Negative) Urine Bilirubin (Negative) Urine Urobilinogen (<2.0) mg/dL Ur Leukocyte Esterase (Negative) Urine RBC (0-5) /hpf Urine WBC (0-5) /hpf Ur Squamous Epith Cells (0-4) /hpf Amorphous Sediment (None) /hpf Urine Bacteria (None) /hpf Urine Mucus (None) /hpf - Radiology Data Radiology results: report reviewed, image reviewed Disposition Clinical Impression: Acute pain of left hip Narrative: Status post left hip total joint arthroplasty Disposition: HOME SELF-CARE Condition: Good Instructions (If sedation given, give patient instructions): Muscle Strain (ED) Additional Instructions: Follow-up with the orthopedic doctor on Wednesday. Continue her home pain medications as directed. Return to the ER immediately if any symptoms worsen, new symptoms arise, or any other problems develop. Is patient prescribed a controlled substance at d/c from ED?: No Referrals: Lucrecia Matute MD [Primary Care Provider] - 1-2 days Fabian Aldana DO [Doctor of Osteopathic Medicine] - 1-2 days Time of Disposition: 21:07
[2022-01-10] MEDS ORDERED: ACETAMINOPHEN TAB 500 MG TAB PO STA (18:52)
--- NOTE | 2022-01-10 19:33 | XR ---
EXAMINATION TYPE: XR chest 2V DATE OF EXAM: 01/10/2022 COMPARISON: 02/03/2021 HISTORY: Fever TECHNIQUE: FINDINGS: Heart is normal. Lungs are clear of infiltrate. There is no heart failure. There is minor s purring in the thoracic spine. Costophrenic angles are clear. IMPRESSION: No active cardiopulmonary disease. There is clearing of the atelectasis in the left lower lung field compared to old exam.
[2022-01-10 19:50] LABS: Anisocytosis Slight; Basophils % (A) 0 %; Eosinophils # (A) 0.2 k/uL (0-0.7); Eosinophils % (A) 2 %; HCT 31.8 % (34.0-46.0); HGB 10.1 gm/dL (11.4-16.0); Hypochromasia Moderate; Lymphocytes # (A) 1.8 k/uL (1.0-4.8); Lymphocytes % (A) 23 %; MCH 26.5 pg (25.0-35.0); MCHC 31.8 g/dL (31.0-37.0); MCV 83.6 fL (80.0-100.0); Mean Platelet Volume 7.7; Monocytes # (A) 0.4 k/uL (0-1.0); Monocytes % (A) 5 %; Neutrophils # (A) 5.1 k/uL (1.3-7.7); Neutrophils % (A) 66 %; Platelet Count 308 k/uL (150-450); RBC 3.81 m/uL (3.80-5.40); RDW 17.2 % (11.5-15.5); WBC 7.7 k/uL (3.8-10.6)
--- NOTE | 2022-01-10 20:01 | XR ---
EXAMINATION TYPE: XR Hip LT and AP Pelvis DATE OF EXAM: 01/10/2022 COMPARISON: 12/30/2021 HISTORY: Postop TECHNIQUE: 3 views FINDINGS: Pelvic ring is intact. There is a left hip prosthesis. Components are in anatomic position. No fracture seen. IMPRESSION: No fracture seen. No adverse change compared to old exam.
[2022-01-10 20:04] LABS: Potassium 3.7 mmol/L (3.5-5.1)
[2022-01-10 20:07] LABS: ALT 14 U/L (4-34); AST 20 U/L (14-36); African American GFR (CKD) >90 (>60 ml/min/1.73 sqM); Albumin 3.8 g/dL (3.5-5.0); Alkaline Phosphatase 120 U/L (38-126); Anion Gap 5 mmol/L; Blood Urea Nitrogen 14 mg/dL (7-17); C Reactive Protein 0.7 mg/dL (<1.0); Calcium 8.6 mg/dL (8.4-10.2); Carbon Dioxide 25 mmol/L (22-30); Chloride 107 mmol/L (98-107); Glucose 101 mg/dL (74-99); Non-African American GFR(CKD) >90 (>60 ml/min/1.73 sqM); Sodium 137 mmol/L (137-145); Total Bilirubin 0.3 mg/dL (0.2-1.3); Total Protein 6.8 g/dL (6.3-8.2)
[2022-01-10 20:33] LABS: Amorphous Sediment,Urine Rare /hpf; Appearance,Urine Cloudy (Clear); Bacteria,Urine Rare /hpf; Bilirubin,Urine Negative (Negative); Blood,Urine Negative (Negative); Color,Urine Yellow; Glucose,Urine (UA) Negative (Negative); Ketones,Urine Negative (Negative); Leukocyte Esterase,Urine Moderate (Negative); Mucus,Urine Rare /hpf; Nitrite,Urine Negative (Negative); Protein,Urine Negative (Negative); RBC,Urine <1 /hpf (0-5); Specific Gravity,Urine 1.016 (1.001-1.035); Squamous Epithelial Cell,Urine 2 /hpf (0-4); Urobilinogen,Urine <2.0 mg/dL (<2.0); WBC,Urine 9 /hpf (0-5)
--- NOTE | 2022-01-10 20:50 | US ---
EXAMINATION TYPE: US venous doppler duplex LE LT DATE OF EXAM: 01/10/2022 8:27 PM COMPARISON: NONE CLINICAL HISTORY: Left lower extremity pain. Left leg pain s/p left hip replacement SIDE PERFORMED: Left TECHNIQUE: The lower extremity deep venous system is examined utilizing real time linear array sonog harpal with graded compression, doppler sonography and color-flow sonography. VESSELS IMAGED: Common Femoral Vein Deep Femoral Vein Greater Saphenous Vein * Femoral Vein Popliteal Vein Small Saphenous Vein * Proximal Calf Veins (* superficial vessels) Left Leg: Negative for DVT IMPRESSION: Negative exam. No evidence of deep vein thrombosis in the left leg.
[2022-01-10 21:39] LABS: Erythrocyte Sedimentation Rate 32 mm/hr (0-20)
[2022-01-10 22:08] VITALS: BP 140/78; PULSE 87; RESP 16; TEMP 97.8
== END 2022-01-10 21:30 | disposition home or self-care (01) ==
LOC: EC 18:19
DX: M25.552 Pain in left hip (principal); J45.909 Unspecified asthma, uncomplicated; K21.9 Gastro-esophageal reflux disease without esophagitis; F17.200 Nicotine dependence, unspecified, uncomplicated; I10 Essential (primary) hypertension; Z79.83 Long term (current) use of bisphosphonates; Z88.9 Allergy status to unspecified drugs, medicaments and biological substances; Z88.8 Allergy status to other drugs, medicaments and biological substances
CPT/HCPCS: 36415; 80053; 85652; 83605; 85025; 86140; 81001; 87040; 73502; 71046; 93971; 99284; 96374; 96375; 96361; J2405; J1170

== ENCOUNTER → 2023-02-23 | Outpatient (CLI) | payer MEDICARE, OTHER ==
--- NOTE | 2023-02-23 17:20 | BD ---
EXAMINATION TYPE: Axial Bone Density DATE OF EXAM: 02/23/2023 CLINICAL HISTORY: 68 year old Female. ICD-10 CODE: Z13.820 SCREENING FOR OSTEO Height: 62 Weight: 194.5 FRAX RISK QUESTIONS: Alcohol (3 or more units per day): no Family History (Parent hip fracture): no Glucocorticoids (More than 3mos): no (Ex: prednisone, prednisolone, methylprednisolone, dexamethasone, and hydrocortisone). History of Fracture in Adulthood: no Secondary Osteoporosis: 1. Type 1 Diabetes: no 2. Hyperthyroidism: no 3. Menopause before 45: no 4. Malnutrition: no 5. Chronic liver disease: no Rheumatoid Arthritis: no Current Tobacco Use: yes RISK FACTORS HISTORY OF: Surgery to Spine/Hip(right/left)/Wrist (right/left): right hip When: 2019 Family History of Osteoporosis: no Diet low in dairy products/other sources of calcium: no Postmenopausal woman: yes Lost more than 2 inches in height since high school: yes MEDICATIONS: Additional History: EXAM MEASUREMENTS: Bone mineral densitometry was performed using the [employer] System. Bone mineral density as measured about the Lumbar spine is: ----- L1-L4(G/cm2): 1.123 T Score Values are as follows: ----- L1: -1.0 ----- L2: -1.0 ----- L3: -0.2 ----- L4: -0.2 ----- L1-L4: -0.5 Z Score Values are as follows: ----- L1: -0.1 ----- L2: -0.1 ----- L3: 0.7 ----- L4: 0.7 ----- L1-L4: 0.4 Bone mineral density has: decreased -1.9 % since study of: 5.2.2017 Bone mineral density about the L Wrist (g/cm2): 0.456 T Score values are as follows: -----Dist. R+U: -2.3 -----Prox. R+U: -2.7 -----Radius total: -3.6 Z Score values are as follows: -----Dist. R+U: -0.8 -----Prox. R+U: -1.2 -----Radius total: -2.1 Bone mineral density : baseline IMPRESSION: Osteoporosis (T Score less than -2.5). There is increased fracture risk and therapy is usually indicated based on age. Re-Screen 1-2 years. NOTE: T-SCORE=SD OF THE YOUNG ADULT MEAN. MTDD
--- NOTE | 2023-02-24 19:13 | MM ---
Reason for Exam: Screening (asymptomatic). Last mammogram was performed 4 year(s) and 9 month(s) ago. Patient History: Menarche at age 17. First Full-Term at age 18. Postmenopausal. Maternal aunt had breast cancer at or over age 50. Sister had breast cancer at or over age 50. Sister had breast cancer at or over age 50. Risk Values: Neva 5 year model risk: 7.3%. NCI Lifetime model risk: 22.9%. Prior Study Comparison: 01/08/2011 Right Diagnostic Mammogram, [facility]. 01/07/2017 Bilateral Screening Mammogram, [facility]. 05/18/2018 Bilateral Screening Mammogram, [facility]. Tissue Density: The breast tissue is heterogeneously dense. This may lower the sensitivity of mammography. Findings: Analyzed By CAD. Pattern appears symmetrical and stable. No significant interval change is evident. Benign vascular calcification is present. Chronic nodularity is stable in the right breast. No suspicious groups of microcalcifications, spiculated or lobular masses, architectural distortion or other secondary signs of malignancy are mammographically apparent. Overall Assessment: Benign, BI-RAD 2 Management: Screening Mammogram of both breasts in 1 year. A negative mammogram report should not preclude additional follow up of suspicious palpable abnormalities. Patient should continue monthly self breast exam. A clinical breast exam by your physician is recommended on an annual basis and results should be correlated with mammographic findings. Electronically signed and approved by: Gavin Ellsworth D.O. Radiologis
== END | disposition home or self-care (01) ==
LOC: RADBDWWP 14:32
PROVIDERS: ATTEND Family Medicine
DX: Z12.31 Encounter for screening mammogram for malignant neoplasm of breast (principal); Z13.820 Encounter for screening for osteoporosis; M85.88 Other specified disorders of bone density and structure, other site; M81.0 Age-related osteoporosis without current pathological fracture; Z78.0 Asymptomatic menopausal state; Z80.3 Family history of malignant neoplasm of breast
CPT/HCPCS: 77063; 77067; 77080

== ENCOUNTER 2023-03-10 18:52 | Emergency (ER) | payer MEDICARE, OTHER ==
[2023-03-10 19:17] VITALS: TEMP 98.4
[2023-03-10] MEDS ORDERED: Acetaminophen-Codeine 300-30mg TAB PO STA (21:00)
--- NOTE | 2023-03-10 21:29 | XR ---
EXAMINATION TYPE: XR knee complete RT DATE OF EXAM: 03/10/2023 COMPARISON: 02/22/2023 HISTORY: Fall, pain TECHNIQUE: Three-view right knee FINDINGS: Tibial femoral components are present. No acute fracture or dislocation is evident. Intimal joint effusion may be present. Follow up exams can be performed 7-10 days from acute trauma for IMPRESSION: 1. There may be a minimal joint effusion. 2. No acute osseous abnormality radiographically apparent.
[2023-03-10] MEDS ORDERED: ACET/COD 300 MG/30 MG STARTER PACK 6 TAB BTL PO STA (21:54)
--- NOTE | 2023-03-10 21:54 | ED ---
Lower Extremity Injury HPI - General Chief Complaint: Extremity Injury, Lower Stated Complaint: knee pain Right Time Seen by Provider: 03/10/23 20:13 Source: patient Mode of arrival: EMS Limitations: no limitations - History of Present Illness Initial Comments: Patient is a 68-year-old female presenting with chief complaint of right knee pain. Patient had a fall from standing yesterday and landed on her right knee. She denies any head injury, loss of consciousness, or use of blood thinners. She does have a history of surgery to the knee. No numbness, tingling, weakness. - Related Data Home Medications Medication Instructions Recorded Confirmed Primidone [Mysoline] 100 mg PO BID 04/09/15 12/30/21 Esomeprazole Magnesium [NexIUM] 40 mg PO DAILY 04/23/15 12/30/21 amLODIPine [Norvasc] 10 mg PO DAILY 04/23/15 12/30/21 ARIPiprazole [Abilify] 5 mg PO DAILY 05/25/18 12/30/21 Albuterol Inhaler [Ventolin Hfa 2 puff INHALATION RT-Q6H PRN 02/03/21 12/30/21 Inhaler] Fluticasone/Umeclidin/Vilanter 1 puff INHALATION RT-DAILY 02/03/21 12/30/21 [Trelegy Ellipta 100-62.5-25] PARoxetine HCL [Paxil] 30 mg PO DAILY 02/03/21 12/30/21 oxyBUTYnin chloride [Ditropan] 5 mg PO DAILY PRN 02/03/21 12/30/21 rOPINIRole HCL [Requip] 1 mg PO HS 02/03/21 12/30/21 Fluticasone Nasal [place] [Flonase 2 spray EA NOSTRIL DAILY 12/29/21 12/30/21 Nasal [place]] Multivitamins, Thera [Multivitamin 1 tab PO DAILY 12/29/21 12/30/21 (formulary)] Sulfamethoxazole/Trimethoprim 1 each PO BID 12/29/21 12/30/21 [Bactrim DS 800-160 mg] Previous Rx's Medication Instructions Recorded Sennosides [Senokot] 2 tab PO DAILY PRN #60 tablet 03/31/21 Aspirin 325 mg PO BID #60 tab 12/30/21 HYDROcodone/APAP 7.5-325MG [[place] 1 - 2 tab PO Q6H PRN #32 tab 12/30/21 7.5-325] Ondansetron Odt [Zofran Odt] 1 tab PO Q8HR PRN #10 tab 12/30/21 Sennosides [Senokot] 2 tab PO DAILY PRN #60 tablet 12/30/21 Allergies Allergy/AdvReac Type Severity Reaction Status Date / Time Elxvkja-RAW-BfQ Reductase AdvReac Myalgia Verified 03/10/23 19:16 Inhibitor [Trqkgwp-Ogc-Nvu Reductase Inhibitor] varenicline [From Chantix] AdvReac Nightmares Verified 03/10/23 19:16 Review of Systems ROS Statement: Those systems with pertinent positive or pertinent negative responses have been documented in the HPI. ROS Other: All systems not noted in ROS Statement are negative. Past Medical History Past Medical History: Asthma, COPD, GERD/Reflux, Hypertension, Osteoarthritis (OA) Additional Past Medical History / Comment(s): hand tremors, hepatitis c-pt states she is not Hep C postive History of Any Multi-Drug Resistant Organisms: None Reported Past Surgical History: Back Surgery, Cholecystectomy, Joint Replacement, Orthopedic Surgery, Tubal Ligation Additional Past Surgical History / Comment(s): BACK FUSION, cervical fusion, left ANKLE SURGERY, left knee arthoscopy, TOTAL RIGHT HIP Past Anesthesia/Blood Transfusion Reactions: No Reported Reaction Past Psychological History: Anxiety, Depression Smoking Status: Current every day smoker Past Alcohol Use History: Rare Past Drug Use History: None Reported - Past Family History Mother Family Medical History: Deep Vein Thrombosis (DVT) Sister(s) Family Medical History: Cancer General Exam Limitations: no limitations General appearance: alert, in no apparent distress Head exam: Present: atraumatic, normocephalic, normal inspection Eye exam: Present: normal appearance, EOMI. Absent: scleral icterus, periorbital swelling Neck exam: Present: normal inspection, full ROM Right Knee exam: Present: normal inspection, full ROM, tenderness. Absent: swelling Neurological exam: Present: alert, oriented X3, CN II-XII intact Psychiatric exam: Present: normal affect, normal mood Skin exam: Present: warm, dry, intact, normal color. Absent: rash Course Vital Signs 03/10/23 03/10/23 19:13 22:42 Temperature 98.4 F Pulse Rate 84 76 Respiratory 20 16 Rate Blood Pressure 125/71 135/78 O2 Sat by Pulse 98 Oximetry Medical Decision Making - Medical Decision Making Was pt. sent in by a medical professional or institution (, JACK, BOW STAPLER, urgent care, hospital, or [facility]...) When possible be specific @ -No Did you speak to anyone other than the patient for history (EMS, parent, family, police, friend...)? What history was obtained from this source @ -No Did you review nursing and triage notes (agree or disagree)? Why? @ -I reviewed and agree with nursing and triage notes Were old charts reviewed (outside hosp., previous admission, EMS record, old EKG, old radiological studies, urgent care reports/EKG's, [facility] records)? Report findings @ -No old charts were reviewed Differential Diagnosis (chest pain, altered mental status, abdominal pain women, abdominal pain men, vaginal bleeding, weakness, fever, dyspnea, syncope, headache, dizziness, GI bleed, back pain, seizure, CVA, palpatations, mental health, musculoskeletal)? @ -Differential Musculoskeletal Muscular strain, contusion, ligament sprain, fracture, arthritis, septic arthritis, bursitis, cellulitis, muscle spasm, nerve compression, DVT, arterial occlusion, herpes zoster, electrolyte abnormality, tumor.... This is not meant to be in all inclusive list EKG interpreted by me (3pts min.). @ -As above X-rays interpreted by me (1pt min.). @ -X-ray negative for fracture or dislocation CT interpreted by me (1pt min.). @ -None done U/S interpreted by me (1pt. min.). @ -None done What testing was considered but not performed or refused? (CT, X-rays, U/S, labs)? Why? @ -None What meds were considered but not given or refused? Why? @ -None Did you discuss the management of the patient with other professionals (professionals i.e. , JACK, BOW STAPLER, lab, RT, psych nurse, certified social workers in health care, financial advisor, teacher, coastal/harbor defense officer, classification case manager)? Give summary @ -No Was smoking cessation discussed for >3mins.? @ -No Was critical care preformed (if so, how long)? @ -No Were there social determinants of health that impacted care today? How? (Homelessness, low income, unemployed, alcoholism, drug addiction, transportation, low edu. Level, literacy, decrease access to med. care, fpc, rehab)? @ -No Was there de-escalation of care discussed even if they declined (Discuss DNR or withdrawal of care, Hospice)? DNR status @ -No What co-morbidities impacted this encounter? (DM, HTN, Smoking, COPD, CAD, Cancer, CVA, ARF, Chemo, Hep., AIDS, mental health diagnosis, sleep apnea, morbid obesity)? @ -None Was patient admitted / discharged? Hospital course, mention meds given and route, prescriptions, significant lab abnormalities, going to OR and other perti nent info. @ -Patient is 68-year-old female presenting with chief complaint of right knee pain after fall from standing yesterday, no 100, loss of consciousness, use of blood thinners. X-rays negative for fracture or dislocation. Patient was educated on supportive management and discharged home. Follow-up with PCP. Report back to ER with any new or worsening symptoms. Discussed return parameters and answered all questions. Patient conveyed verbal understanding and agreed to the plan. I discussed this case in detail with my attending Dr. Keller Undiagnosed new problem with uncertain prognosis? @ -No Drug Therapy requiring intensive monitoring for toxicity (Heparin, Nitro, Insulin, Cardizem)? @ -No Were any procedures done? @ -No Diagnosis/symptom? @ -Knee pain Acute, or Chronic, or Acute on Chronic? @ -Acute Uncomplicated (without systemic symptoms) or Complicated (systemic symptoms)? @ -uncomplicated Side effects of treatment? @ -No Exacerbation, Progression, or Severe Exacerbation? @ -No Poses a threat to life or bodily function? How? (Chest pain, [place], [place], pneumonia, PE, COPD, DKA, ARF, appy, cholecystitis, CVA, Diverticulitis, Homicidal, Suicidal, threat to staff... and all critical care pts) @ -No Disposition Clinical Impression: Knee pain Disposition: HOME SELF-CARE Condition: Good Instructions (If sedation given, give patient instructions): Knee Pain (ED) Additional Instructions: Follow-up with PCP. Report back to ER with any new or worsening symptoms. Take Motrin and Tylenol as needed for pain control. Is patient prescribed a controlled substance at d/c from ED?: No Referrals: Sunilkumar,Mini, MD [Primary Care Provider] - 1-2 days Time of Disposition: 21:54
[2023-03-10 22:43] VITALS: BP 135/78; PULSE 76; RESP 16
== END 2023-03-10 22:43 | disposition home or self-care (01) ==
LOC: EC 18:52
DX: M25.561 Pain in right knee (principal); J44.9 Chronic obstructive pulmonary disease, unspecified; K21.9 Gastro-esophageal reflux disease without esophagitis; I10 Essential (primary) hypertension; M19.90 Unspecified osteoarthritis, unspecified site; F41.9 Anxiety disorder, unspecified; F32.A Depression, unspecified; F17.200 Nicotine dependence, unspecified, uncomplicated; Z79.51 Long term (current) use of inhaled steroids; Z79.1 Long term (current) use of non-steroidal anti-inflammatories (NSAID); Z79.899 Other long term (current) drug therapy; Z88.6 Allergy status to analgesic agent; Z88.8 Allergy status to other drugs, medicaments and biological substances; X58.XXXA Exposure to other specified factors, initial encounter
CPT/HCPCS: 99284

== ENCOUNTER 2023-03-12 10:52 | Observation (INO) | payer MEDICARE, OTHER ==
[2023-03-12] MEDS ORDERED: IPRATROPIUM-ALBUTEROL 3 ML NEB INHALATION STA (11:06)
[2023-03-12] MEDS ORDERED: ASPIRIN 81 MG PO STA (11:06)
[2023-03-12] MEDS ORDERED: methylPREDNISolone SOD SUCCI 125 MG/2 ML VIAL IV STA (11:06)
--- NOTE | 2023-03-12 11:09 | ED ---
General Adult HPI - General Stated complaint: SOB Time Seen by Provider: 03/12/23 10:58 Source: patient, RN notes reviewed Limitations: no limitations - History of Present Illness Initial comments: Patient is a pleasant 68-year-old female presenting to the emergency department with concerns with difficulty breathing. Onset of symptoms was around 3 days ago. No past history of lung disease however patient is a smoker. Patient has been having some chest discomfort over the past few hours. Discomfort described as tightness and rated 7/10. No radiation. No leg pain or leg swelling. No fever. - Related Data Home Medications Medication Instructions Recorded Confirmed Primidone [Mysoline] 100 mg PO BID 04/09/15 12/30/21 Esomeprazole Magnesium [NexIUM] 40 mg PO DAILY 04/23/15 12/30/21 amLODIPine [Norvasc] 10 mg PO DAILY 04/23/15 12/30/21 ARIPiprazole [Abilify] 5 mg PO DAILY 05/25/18 12/30/21 Albuterol Inhaler [Ventolin Hfa 2 puff INHALATION RT-Q6H PRN 02/03/21 12/30/21 Inhaler] Fluticasone/Umeclidin/Vilanter 1 puff INHALATION RT-DAILY 02/03/21 12/30/21 [Trelegy Ellipta 100-62.5-25] PARoxetine HCL [Paxil] 30 mg PO DAILY 02/03/21 12/30/21 oxyBUTYnin chloride [Ditropan] 5 mg PO DAILY PRN 02/03/21 12/30/21 rOPINIRole HCL [Requip] 1 mg PO HS 02/03/21 12/30/21 Fluticasone Nasal [place] [Flonase 2 spray EA NOSTRIL DAILY 12/29/21 12/30/21 Nasal [place]] Multivitamins, Thera [Multivitamin 1 tab PO DAILY 12/29/21 12/30/21 (formulary)] Sulfamethoxazole/Trimethoprim 1 each PO BID 12/29/21 12/30/21 [Bactrim DS 800-160 mg] Previous Rx's Medication Instructions Recorded Sennosides [Senokot] 2 tab PO DAILY PRN #60 tablet 03/31/21 Aspirin 325 mg PO BID #60 tab 12/30/21 HYDROcodone/APAP 7.5-325MG [[place] 1 - 2 tab PO Q6H PRN #32 tab 12/30/21 7.5-325] Ondansetron Odt [Zofran Odt] 1 tab PO Q8HR PRN #10 tab 12/30/21 Sennosides [Senokot] 2 tab PO DAILY PRN #60 tablet 12/30/21 Allergies Allergy/AdvReac Type Severity Reaction Status Date / Time Gpsogrc-PZO-ZzT Reductase AdvReac Myalgia Verified 03/12/23 11:19 Inhibitor [Riknmza-Hwt-Gfs Reductase Inhibitor] varenicline [From Chantix] AdvReac Nightmares Verified 03/12/23 11:19 Review of Systems ROS Statement: Those systems with pertinent positive or pertinent negative responses have been documented in the HPI. ROS Other: All systems not noted in ROS Statement are negative. Constitutional: Denies: fever Eyes: Denies: eye pain ENT: Denies: ear pain Respiratory: Reports: as per HPI, dyspnea Cardiovascular: Reports: as per HPI, chest pain Endocrine: Denies: fatigue Gastrointestinal: Denies: abdominal pain Genitourinary: Denies: urgency Skin: Denies: rash Neurological: Denies: weakness Psychiatric: Reports: anxiety Past Medical History Past Medical History: Asthma, COPD, GERD/Reflux, Hypertension, Osteoarthritis (OA) Additional Past Medical History / Comment(s): hand tremors, hepatitis c-pt states she is not Hep C postive History of Any Multi-Drug Resistant Organisms: None Reported Past Surgical History: Back Surgery, Cholecystectomy, Joint Replacement, Orthopedic Surgery, Tubal Ligation Additional Past Surgical History / Comment(s): BACK FUSION, cervical fusion, left ANKLE SURGERY, left knee arthoscopy, TOTAL RIGHT HIP Past Anesthesia/Blood Transfusion Reactions: No Reported Reaction Past Psychological History: Anxiety, Depression Smoking Status: Current every day smoker Past Alcohol Use History: Rare Past Drug Use History: None Reported - Past Family History Mother Family Medical History: Deep Vein Thrombosis (DVT) Sister(s) Family Medical History: Cancer General Exam Limitations: no limitations General appearance: alert, in no apparent distress Head exam: Present: normocephalic Eye exam: Present: normal appearance Neck exam: Present: normal inspection Respiratory exam: Present: wheezes, decreased breath sounds Cardiovascular Exam: Present: regular rate, normal rhythm, normal heart sounds Expanded Peripheral pulses: 2+: Radial (R), Radial (L), Dorsalis Pedis (R), Dorsalis Pedis (L) GI/Abdominal exam: Present: soft. Absent: tenderness Extremities exam: Present: normal inspection. Absent: pedal edema, calf tenderness Neurological exam: Present: alert Psychiatric exam: Present: anxious Skin exam: Present: normal color Course Vital Signs 03/12/23 03/12/23 03/12/23 11:07 12:11 12:19 Temperature 98.3 F Pulse Rate 80 75 73 Respiratory 18 Rate Blood Pressure 129/78 O2 Sat by Pulse 97 Oximetry EKG Findings - EKG Results: EKG: interpreted by ERMD, sinus rhythm, normal axis, normal QRS, normal ST/T Medical Decision Making - Medical Decision Making Was pt. sent in by a medical professional or institution (, PA, COIL REPAIR TECHNICIAN, urgent care, hospital, or assisted...) When possible be specific @ -No Did you speak to anyone other than the patient for history (EMS, parent, family, police, friend...)? What history was obtained from this source @ -No Did you review nursing and triage notes (agree or disagree)? Why? @ -I reviewed and agree with nursing and triage notes Were old charts reviewed (outside hosp., previous admission, EMS record, old EKG, old radiological studies, urgent care reports/EKG's, assisted records)? Report findings @ -No old charts were reviewed Differential Diagnosis (chest pain, altered mental status, abdominal pain women, abdominal pain men, vaginal bleeding, weakness, fever, dyspnea, syncope, headache, dizziness, GI bleed, back pain, seizure, CVA, palpatations, mental health)? @ -Differential Chest Pain: Stable Angina, Unstable Angina, STEMI, NSTEMI Aortic Dissection, Pneumothorax, Musculoskeletal, Esophageal Spasm GERD, Cholecystitis, Pancreatitis, Zoster, this is not meant to be an all-inclusive list. Differential Dyspnea: Coronary syndrome, arrhythmia, tamponade, asthma, COPD, pulmonary embolism, pneumonia, pneumothorax, pulmonary effusion, anaphylaxis, diabetic ketoacidosis, flailed chest, pulmonary contusion, diaphragmatic rupture, anemia, neuromuscular, this is not meant to be an all-inclusive list. EKG interpreted by me (3pts min.). @ -As above X-rays interpreted by me (1pt min.). @ -Chest x-ray does not reveal acute process CT interpreted by me (1pt min.). @ -Report reviewed U/S interpreted by me (1pt. min.). @ -None done What testing was considered but not performed or refused? (CT, X-rays, U/S, labs)? Why? @ -None What meds were considered but not given or refused? Why? @ -None Did you discuss the management of the patient with other professionals (pro fessionals i.e. , PA, COIL REPAIR TECHNICIAN, lab, RT, psych nurse, neonatal social worker, lawyers, teacher, employment officer, field nurse case manager)? Give summary @ -Case was discussed with Dr. Mak, who will admit covering Dr. Sofy Byrd Was smoking cessation discussed for >3mins.? @ -No Was critical care preformed (if so, how long)? @ -No Were there social determinants of health that impacted care today? How? (Homele ssness, low income, unemployed, alcoholism, drug addiction, transportation, low edu. Level, literacy, decrease access to med. care, [facility], rehab)? @ -No Was there de-escalation of care discussed even if they declined (Discuss DNR or withdrawal of care, Hospice)? DNR status @ -No What co-morbidities impacted this encounter? (DM, HTN, Smoking, COPD, CAD, Cancer, CVA, ARF, Chemo, Hep., AIDS, mental health diagnosis, sleep apnea, morbid obesity)? @ -None Was patient admitted / discharged? Hospital course, mention meds given and route, prescriptions, significant lab abnormalities, going to OR and other pertinent info. @ -Patient reevaluated. Patient states both of her symptoms have improved however not resolved. Patient was updated on results and plan. Patient will be admitted Undiagnosed new problem with uncertain prognosis? @ -No Drug Therapy requiring intensive monitoring for toxicity (Heparin, Nitro, Insulin, Cardizem)? @ -No Were any procedures done? @ -No Diagnosis/symptom? @ -Acute COPD, chest pain Acute, or Chronic, or Acute on Chronic? @ -Acute, acute Uncomplicated (without systemic symptoms) or Complicated (systemic symptoms)? @ -default Side effects of treatment? @ -No Exacerbation, Progression, or Severe Exacerbation? @ -No Poses a threat to life or bodily function? How? (Chest pain, [place], [place], pneumonia, PE, COPD, DKA, ARF, appy, cholecystitis, CVA, Diverticulitis, Homicidal, Suicidal, threat to staff... and all critical care pts) @ -No - Lab Data Result diagrams: 03/12/23 11:07 03/12/23 11:07 Lab Results 03/12/23 03/12/23 03/12/23 Range/Units 11:07 11:07 11:07 WBC 5.7 (3.8-10.6) k/uL RBC 4.57 (3.80-5.40) m/uL Hgb 13.9 (11.4-16.0) gm/dL Hct 41.9 (34.0-46.0) % MCV 91.6 (80.0-100.0) fL MCH 30.5 (25.0-35.0) pg MCHC 33.3 (31.0-37.0) g/dL RDW 17.5 H (11.5-15.5) % Plt Count 214 (150-450) k/uL MPV 8.9 Neutrophils % 60 % Lymphocytes % 27 % Monocytes % 7 % Eosinophils % 3 % Basophils % 0 % Neutrophils # 3.4 (1.3-7.7) k/uL Lymphocytes # 1.5 (1.0-4.8) k/uL Monocytes # 0.4 (0-1.0) k/uL Eosinophils # 0.2 (0-0.7) k/uL Basophils # 0.0 (0-0.2) k/uL Anisocytosis Slight PT 10.2 (9.0-12.0) sec INR 1.0 (<1.2) APTT 28.2 (22.0-30.0) sec D-Dimer 0.89 H (<0.60) mg/L FEU Sodium 139 (137-145) mmol/L Potassium 4.3 (3.5-5.1) mmol/L Chloride 104 (98-107) mmol/L Carbon Dioxide 30 (22-30) mmol/L Anion Gap 5 mmol/L BUN 10 (7-17) mg/dL Creatinine 0.49 L (0.52-1.04) mg/dL Est GFR (CKD-EPI)AfAm >90 (>60 ml/min/1.73 sqM) Est GFR (CKD-EPI)NonAf >90 (>60 ml/min/1.73 sqM) Glucose 94 (74-99) mg/dL Plasma Lactic Acid Bib (0.7-2.0) mmol/L Calcium 8.8 (8.4-10.2) mg/dL Magnesium 2.1 (1.6-2.3) mg/dL Total Bilirubin 0.3 (0.2-1.3) mg/dL AST 73 H (14-36) U/L ALT 67 H (4-34) U/L Alkaline Phosphatase 198 H (38-126) U/L Troponin I (0.000-0.034) ng/mL NT-Pro-B Natriuret Pep pg/mL Total Protein 7.1 (6.3-8.2) g/dL Albumin 4.2 (3.5-5.0) g/dL 03/12/23 03/12/23 03/12/23 Range/Units 11:07 11:07 11:07 WBC (3.8-10.6) k/uL RBC (3.80-5.40) m/uL Hgb (11.4-16.0) gm/dL Hct (34.0-46.0) % MCV (80.0-100.0) fL MCH (25.0-35.0) pg MCHC (31.0-37.0) g/dL RDW (11.5-15.5) % Plt Count (150-450) k/uL MPV Neutrophils % % Lymphocytes % % Monocytes % % Eosinophils % % Basophils % % Neutrophils # (1.3-7.7) k/uL Lymphocytes # (1.0-4.8) k/uL Monocytes # (0-1.0) k/uL Eosinophils # (0-0.7) k/uL Basophils # (0-0.2) k/uL Anisocytosis PT (9.0-12.0) sec INR (<1.2) APTT (22.0-30.0) sec D-Dimer (<0.60) mg/L FEU Sodium (137-145) mmol/L Potassium (3.5-5.1) mmol/L Chloride (98-107) mmol/L Carbon Dioxide (22-30) mmol/L Anion Gap mmol/L BUN (7-17) mg/dL Creatinine (0.52-1.04) mg/dL Est GFR (CKD-EPI)AfAm (>60 ml/min/1.73 sqM) Est GFR (CKD-EPI)NonAf (>60 ml/min/1.73 sqM) Glucose (74-99) mg/dL Plasma Lactic Acid Bib 0.7 (0.7-2.0) mmol/L Calcium (8.4-10.2) mg/dL Magnesium (1.6-2.3) mg/dL Total Bilirubin (0.2-1.3) mg/dL AST (14-36) U/L ALT (4-34) U/L Alkaline Phosphatase (38-126) U/L Troponin I <0.012 (0.000-0.034) ng/mL NT-Pro-B Natriuret Pep 75 pg/mL Total Protein (6.3-8.2) g/dL Albumin (3.5-5.0) g/dL Disposition Clinical Impression: Chest pain, Acute exacerbation of chronic obstructive pulmonary disease Disposition: ADMITTED IP TO THIS HOSP Is patient prescribed a controlled substance at d/c from ED?: No Referrals: Fina Mckenzie MD [Primary Care Provider] - 1-2 days Time of Disposition: 14:17
--- NOTE | 2023-03-12 12:04 | XR ---
EXAMINATION TYPE: XR chest 2V DATE OF EXAM: 03/12/2023 COMPARISON: Chest x-ray January 10, 2022 HISTORY: Difficulty in breathing. TECHNIQUE: Frontal and lateral views of the chest are obtained. FINDINGS: Elevated left hemidiaphragm. There is no suspicious focal air space opacity, pleural effusi on, or pneumothorax seen. The cardiac silhouette size is stable and upper limits of normal. Partial visualization of surgical change of the cervical spine is redemonstrated. IMPRESSION: No acute cardiopulmonary process. No significant change from prior.
[2023-03-12 12:22] LABS: ALT 67 U/L (4-34); AST 73 U/L (14-36); African American GFR (CKD) >90 (>60 ml/min/1.73 sqM); Albumin 4.2 g/dL (3.5-5.0); Alkaline Phosphatase 198 U/L (38-126); Anion Gap 5 mmol/L; Blood Urea Nitrogen 10 mg/dL (7-17); Calcium 8.8 mg/dL (8.4-10.2); Carbon Dioxide 30 mmol/L (22-30); Chloride 104 mmol/L (98-107); Glucose 94 mg/dL (74-99); Magnesium 2.1 mg/dL (1.6-2.3); Non-African American GFR(CKD) >90 (>60 ml/min/1.73 sqM); Potassium 4.3 mmol/L (3.5-5.1); Sodium 139 mmol/L (137-145); Total Bilirubin 0.3 mg/dL (0.2-1.3); Total Protein 7.1 g/dL (6.3-8.2)
[2023-03-12 12:26] LABS: Partial Thromboplastin Time 28.2 sec (22.0-30.0); Prothrombin Time 10.2 sec (9.0-12.0)
[2023-03-12 12:47] LABS: Anisocytosis Slight; Basophils % (A) 0 %; Eosinophils # (A) 0.2 k/uL (0-0.7); Eosinophils % (A) 3 %; HCT 41.9 % (34.0-46.0); HGB 13.9 gm/dL (11.4-16.0); Lymphocytes # (A) 1.5 k/uL (1.0-4.8); Lymphocytes % (A) 27 %; MCH 30.5 pg (25.0-35.0); MCHC 33.3 g/dL (31.0-37.0); MCV 91.6 fL (80.0-100.0); Mean Platelet Volume 8.9; Monocytes # (A) 0.4 k/uL (0-1.0); Monocytes % (A) 7 %; Neutrophils # (A) 3.4 k/uL (1.3-7.7); Neutrophils % (A) 60 %; Platelet Count 214 k/uL (150-450); RBC 4.57 m/uL (3.80-5.40); RDW 17.5 % (11.5-15.5); WBC 5.7 k/uL (3.8-10.6)
--- NOTE | 2023-03-12 14:06 | CT ---
EXAMINATION TYPE: CT angio chest DATE OF EXAM: 03/12/2023 COMPARISON: None HISTORY: Dyspnea CT DLP: 342.9 mGycm CONTRAST: CT chest with contrast and 3D reconstruction with MIP imaging is performed without and with IV Contra st, patient injected with 100 ml mL of Isovue 370. Contrast-enhanced CT of the chest was performed through the course of the pulmonary arteries with guillermo g and mediastinal window settings submitted. 3D reconstruction with MIP imaging was also performed. PULMONARY ARTERIES: The pulmonary arteries and their major tributaries are patent. I do not see neto dence for sizable filling defect to suggest pulmonary embolic process. LUNGS: The lungs are clear and free of infiltrate. 6.5 mm pulmonary nodule left lower lobe at its per iphery seen on image 79 sequence 406. No additional nodules seen with certainty. Left basilar laurence sive atelectasis. No pleural effusion. MEDIASTINUM: Thoracic aorta is of normal caliber,however, evaluation is limited given timing of the contrast bolus. If there is concern for thoracic aortic pathology consider WALT. Correlate clinicall y . The heart is not enlarged. No evidence for mediastinal mass. No mediastinal lymph nodes greater than 1cm. HILAR STRUCTURES: No evidence for mass. No hilar lymph nodes greater than 1 cm. UPPER ABDOMEN: No significant abnormality is seen. IMPRESSION: 1. No evidence for Pulmonary embolism at this time. 2. Six-month follow-up for left lower lobe pulmonary nodule.
[2023-03-12] MEDS ORDERED: NALOXONE 0.4 MG/ML 1 ML VIAL IVP PRN (14:17)
[2023-03-12] MEDS ORDERED: IPRATROPIUM-ALBUTEROL 3 ML NEB INHALATION PRN (14:17)
[2023-03-12] MEDS ORDERED: NITROGLYCERIN SL TABS 0.4 MG TAB SUBLINGUAL PRN (14:17)
[2023-03-12] MEDS: IPRATROPIUM-ALBUTEROL 3 ML NEB INHALATION SCH ×2 (16:59→20:41)
[2023-03-12] MEDS: methylPREDNISolone SOD SUCCI 125 MG/2 ML VIAL IV SCH ×2 (17:33→23:14)
[2023-03-12] MEDS: NITROGLYCERIN OINT 1 INCH/GM PACKET TOPICAL SCH ×2 (17:34→23:14)
[2023-03-13] MEDS: ACETAMINOPHEN TAB 325 MG TAB PO PRN ×4 (02:33→20:19)
[2023-03-13] MEDS: methylPREDNISolone SOD SUCCI 125 MG/2 ML VIAL IV SCH ×4 (05:50→23:35)
[2023-03-13] MEDS: NITROGLYCERIN OINT 1 INCH/GM PACKET TOPICAL SCH ×4 (05:52→23:35)
[2023-03-13] MEDS: IPRATROPIUM-ALBUTEROL 3 ML NEB INHALATION SCH ×4 (07:44→19:29)
[2023-03-13] MEDS: ASPIRIN 325 MG TAB PO SCH (09:59)
[2023-03-13 10:27] LABS: Chol/HDL Ratio 4.62 Ratio; LDL Cholesterol,Calculated 150.7 mg/dL (0.0-131.0)
--- NOTE | 2023-03-13 13:05 | P.CRDCN ---
History of Present Illness Consult date: 03/13/23 Consult reason: chest pain History of present illness: The patient is a 68-year-old female who presented to the emergency room with new onset of shortness of breath and chest discomfort. The patient states she began coughing several days ago, which was nonproductive. Yesterday she became progressively short of breath with her coughing spells and developed sharp anterior chest wall pain. DIAGNOSTICS: Chest x-ray shows no acute cardiopulmonary process EKG shows sinus mechanism without ST or T-wave abnormalities CTA of the chest shows no evidence of pulmonary embolism Lab data WBC 5.7, hemoglobin 13.9, hematocrit 41.9, platelet 214, d-dimer 0.89, sodium 139, potassium 4.3, BUN 10, creatinine 0.49, AST 73, ALT 67, ALP 198, troponins negative 3, BNP 75, LDL 150, HDL 48, triglycerides 116 PAST MEDICAL HISTORY: Smoking REVIEW OF SYSTEMS: No fever or chills. No cough or expectoration. No diaphoresis. Patient denies headache, dizziness, blurred vision, double vision. Patient denies any stomach discomfort. No nausea, vomiting. No hematochezia. No hematemesis. Denies any black stools or blood in his stools. Denies dysuria or hematuria. No muscle weakness or numbness. Positive for chest wall discomfort PHYSICAL EXAMINATION: This is a 68-year-old female in no apparent distress at the time of my examination. HEENT: Head is atraumatic, normocephalic. Pupils are equal, round. Sclerae anicteric. Conjunctivae are clear. Mucous membranes of the mouth are moist. Neck is supple. There is no jugular venous distention. No carotid bruit is heard. CHEST EXAMINATION: Bilateral expiratory wheezes with rhonchi. Positive for chest discomfort with coughing and deep breathing. HEART EXAMINATION: Heart regular rate and rhythm. S1, S2 heard. No murmurs, gallops or rub. ABDOMEN: Soft, nontender. Bowel sounds are heard. No organomegaly noted. EXTREMITIES: 2+ peripheral pulses with no evidence of peripheral edema and no calf tenderness noted. NEUROLOGIC EXAMINATION: Patient is awake, alert and oriented x3. FINAL ASSESSMENT AND PLAN: Chest discomfort, ACS workup unremarkable Elevated d-dimer, no evidence of pulmonary embolism Worsening shortness of breath, COPD versus upper respiratory infection History of smoking PLAN: Check lipid profile Echocardiogram and Doppler study to assess heart structure and function Further recommendations to be based on clinical course I am dictating on behalf of Dr Veto Owen's history/physical and assessment/plan. Past Medical History Past Medical History: Asthma, COPD, GERD/Reflux, Hypertension, Osteoarthritis (OA) Additional Past Medical History / Comment(s): hand tremors, hepatitis c-pt states she is not Hep C postive History of Any Multi-Drug Resistant Organisms: None Reported Past Surgical History: Back Surgery, Cholecystectomy, Joint Replacement, Orthopedic Surgery, Tubal Ligation Additional Past Surgical History / Comment(s): BACK FUSION, cervical fusion, left ANKLE SURGERY, left knee arthoscopy, TOTAL RIGHT HIP Past Anesthesia/Blood Transfusion Reactions: No Reported Reaction Past Psychological History: Anxiety, Depression Smoking Status: Current every day smoker Past Alcohol Use History: Rare Additional Past Alcohol Use History / Comment(s): trying to quit smoking Past Drug Use History: None Reported - Past Family History Mother Family Medical History: Deep Vein Thrombosis (DVT) Sister(s) Family Medical History: Cancer Medications and Allergies Home Medications Medication Instructions Recorded Confirmed Type Primidone [Mysoline] 250 mg PO DAILY 04/09/15 03/12/23 History amLODIPine [Norvasc] 10 mg PO DAILY 04/23/15 03/12/23 History ARIPiprazole [Abilify] 5 mg PO DAILY 05/25/18 03/12/23 History Albuterol Inhaler [Ventolin Hfa 2 puff INHALATION RT-Q6H PRN 02/03/21 03/12/23 History Inhaler] Fluticasone/Umeclidin/Vilanter 1 puff INHALATION RT-DAILY 02/03/21 03/12/23 History [Trelegy Ellipta 100-62.5-25] HYDROcodone/APAP 7.5-325MG [[place] 1 tab PO DIRECTED 03/12/23 03/12/23 History 7.5-325] Ibuprofen [Motrin] 800 mg PO Q8H PRN 03/12/23 03/12/23 History rOPINIRole HCL [Requip] 1 mg PO HS PRN 03/12/23 03/12/23 History Allergies Allergy/AdvReac Type Severity Reaction Status Date / Time Yedbidg-HSV-IyX Reductase AdvReac Myalgia Verified 03/12/23 15:57 Inhibitor [Yvtqion-Ayd-Fus Reductase Inhibitor] varenicline [From Chantix] AdvReac Nightmares Verified 03/12/23 15:57 Physical Exam Vitals: Vital Signs Temp Pulse Pulse Resp BP BP Pulse Ox 03/13/23 11:28 84 03/13/23 11:18 84 03/13/23 07:57 96 03/13/23 07:45 96 97 03/13/23 07:19 98.3 F 80 19 131/55 98 03/13/23 02:00 98.2 F 75 14 131/71 96 03/12/23 20:52 72 03/12/23 20:42 70 03/12/23 20:00 98.5 F 93 17 137/67 96 03/12/23 17:08 68 03/12/23 16:59 68 03/12/23 16:28 97.7 F 78 16 143/82 97 03/12/23 15:56 98.1 F 78 18 161/87 96 Intake and Output 03/12/23 03/13/23 03/13/23 22:59 06:59 14:59 Intake Total 118 180 Balance 118 180 Intake: Oral 118 180 Other: Voiding Method Toilet Toilet # Voids 1 2 # Bowel Movements 1 Results 03/12/23 11:07 03/12/23 11:07 Cardiac Enzymes 03/12/23 03/12/23 Range/Units 14:51 17:54 Troponin I <0.012 <0.012 (0.000-0.034) ng/mL Lipids 03/13/23 Range/Units 06:09 Triglycerides 116.00 (0.00-149.00) mg/dL Cholesterol 222.00 H (0.00-200.00) mg/dL HDL Cholesterol 48.10 (40.00-60.00) mg/dL Cholesterol/HDL Ratio 4.62 Ratio Current Medications Generic Name Dose Route Start Last Admin Trade Name Freq PRN Reason Stop Dose Admin Acetaminophen 650 mg 03/12/23 14:17 03/13/23 09:59 Acetaminophen Tab 325 Mg Tab PO 650 mg Q4HR PRN Administration Mild Pain or Fever > 100.5 Albuterol/Ipratropium 3 ml 03/12/23 16:00 03/13/23 11:18 Ipratropium-Albuterol 3 Ml Neb INHALATION 3 ml RT-QID JENNA Administration Albuterol/Ipratropium 3 ml 03/12/23 14:17 Ipratropium-Albuterol 3 Ml Neb INHALATION RT-Q2H PRN Shortness Of Breath Or Wheezing Aspirin 325 mg 03/13/23 09:00 03/13/23 09:59 Aspirin 325 Mg Tab PO 325 mg DAILY JENNA Administration Methylprednisolone Sodium Succinate 60 mg 03/12/23 18:00 03/13/23 11:50 Methylprednisolone Sod Succi 125 Mg/2 Ml Vial IV 60 mg Q6HR JENNA Administration Naloxone HCl 0.2 mg 03/12/23 14:17 Naloxone 0.4 Mg/Ml 1 Ml Vial IVP Q2M PRN Opioid Reversal Nitroglycerin 0.4 mg 03/12/23 14:17 Nitroglycerin Sl Tabs 0.4 Mg Tab SUBLINGUAL Q5M PRN Chest Pain Nitroglycerin 1 inch 03/12/23 18:00 03/13/23 11:39 Nitroglycerin Oint 1 Inch/Gm Packet TOPICAL Not Given Q6HR [facility] Intake and Output 03/12/23 03/13/23 03/13/23 22:59 06:59 14:59 Intake Total 118 180 Balance 118 180 Intake: Oral 118 180 Other: Voiding Method Toilet Toilet # Voids 1 2 # Bowel Movements 1 03/12/23 11:07 03/12/23 11:07
--- NOTE | 2023-03-13 16:39 | CA ---
Transthoracic Echo Report Name: Ene Plunkett Age: 68 Gender: F : 1955 Exam Date: 03/13/2023 08:55 Exam Location: [facility] Ht (in): 65 Wt (lb): 165 Ordering Physician: Kayleen Del Castillo Attending/Referring Phys: [id number], Magdalene [employer] Manager Klaudia Alvarado RDCS Procedure CPT: Indications: shortness of breath, history of cardiomyopathy Cardiac Hx: Technical Quality: Technically difficult study Contrast 1: Lumason Total Dose (mL): 4 Contrast 2: Total Dose (mL): MEASUREMENTS (Male / Female) Normal Values 2D ECHO LV Diastolic Diameter PLAX 3.7 cm 4.2 - 5.9 / 3.9 - 5.3 cm LV Systolic Diameter PLAX 2.8 cm IVS Diastolic Thickness 1.3 cm 0.6 - 1.0 / 0.6 - 0.9 cm LVPW Diastolic Thickness 1.4 cm 0.6 - 1.0 / 0.6 - 0.9 cm LV Relative Wall Thickness 0.7 LA Volume 60.3 cm??? 18 - 58 / 22 - 52 cm??? M-MODE Aortic Root Diameter MM 3.4 cm LA Systolic Diameter MM 2.9 cm LA Ao Ratio MM 0.9 DOPPLER AV Peak Velocity 154.4 cm/s AV Peak Gradient 9.5 mmHg AV Mean Velocity 112.1 cm/s AV Mean Gradient 5.4 mmHg AV Velocity Time Integral 30.7 cm LVOT Peak Velocity 104.3 cm/s LVOT Peak Gradient 4.4 mmHg MV Area PHT 3.3 cm??? Mitral E Point Velocity 76.2 cm/s Mitral A Point Velocity 106.7 cm/s Mitral E to A Ratio 0.7 MV Deceleration Time 230.1 ms MV E' Velocity 5.1 cm/s Mitral E to MV E' Ratio 14.9 FINDINGS Left Ventricle Moderately increased left ventricular wall thickness. Left ventricular cavity size normal. Left ventricular ejection fraction is estimated at 50 %. Right Ventricle Normal right ventricular size and function. Right ventricular systolic pressure within normal limits. Right Atrium Normal right atrial size. Left Atrium Mildly increased left atrial volume. Mitral Valve Structurally normal mitral valve. Mild mitral regurgitation. Aortic Valve No aortic valve stenosis or regurgitation. Tricuspid Valve Mild tricuspid regurgitation. Pulmonic Valve Trace pulmonic regurgitation. Pericardium No pericardial effusion. Aorta Normal size aortic root and proximal ascending aorta. CONCLUSIONS LVH with left ventricle ejection fraction 50-55% Previewed by: Dr. Veto Owen MD (Electronically Signed) Final Date: 13 Mar 2023 16:39
[2023-03-14] MEDS: NITROGLYCERIN OINT 1 INCH/GM PACKET TOPICAL SCH ×2 (05:54→11:14)
[2023-03-14] MEDS: methylPREDNISolone SOD SUCCI 125 MG/2 ML VIAL IV SCH ×2 (05:54→12:57)
[2023-03-14 08:01] VITALS: BP 146/80; RESP 19; TEMP 98
[2023-03-14] MEDS: IPRATROPIUM-ALBUTEROL 3 ML NEB INHALATION SCH ×2 (08:28→12:10)
[2023-03-14] MEDS: ASPIRIN 325 MG TAB PO SCH (09:03)
--- NOTE | 2023-03-14 09:42 | P.HPIM ---
History of Present Illness H&P Date: 03/12/23 Chief Complaint: Shortness of breath 68-year-old female presenting to the emergency department with concerns with difficulty breathing. Onset of symptoms was around 3 days ago. No past history of lung disease however patient is a smoker. Patient has been having some chest discomfort over the past few hours. Discomfort described as tightness and rated 7/10. No radiation. No leg pain or leg swelling. No fever. Workup completed in ED including an EKG reveals normal sinus rhythm, normal QRS and normal ST/T Chest x-ray is unremarkable Blood work reveals a WBC of 5.7, hemoglobin of 13.9 and platelet count of 214, sodium 139, potassium 4.3, BUN/creatinine of 10/0.49 and blood glucose of 94; initial troponin is less than 0.012 and BNP of 70 Review of Systems REVIEW OF SYSTEMS: CONSTITUTIONAL: No fever, no malaise, no fatigue. HEENT: No recent visual problems or hearing problems. Denied any sore throat. CARDIOVASCULAR: No chest pain, orthopnea, PND, no palpitations, no syncope. PULMONARY: No shortness of breath, no cough, no hemoptysis. GASTROINTESTINAL: No diarrhea, no nausea, no vomiting, no abdominal pain. NEUROLOGICAL: No headaches, no weakness, no numbness. HEMATOLOGICAL: Denies any bleeding or petechiae. GENITOURINARY: Denies any burning micturition, frequency, or urgency. MUSCULOSKELETAL/RHEUMATOLOGICAL: Denies any joint pain, swelling, or any muscle pain. ENDOCRINE: Denies any polyuria or polydipsia. The rest of the 14-point review of systems is negative. Past Medical History Past Medical History: Asthma, COPD, GERD/Reflux, Hypertension, Osteoarthritis (OA) Additional Past Medical History / Comment(s): hand tremors, hepatitis c-pt states she is not Hep C postive History of Any Multi-Drug Resistant Organisms: None Reported Past Surgical History: Back Surgery, Cholecystectomy, Joint Replacement, Orthopedic Surgery, Tubal Ligation Additional Past Surgical History / Comment(s): BACK FUSION, cervical fusion, left ANKLE SURGERY, left knee arthoscopy, TOTAL RIGHT HIP Past Anesthesia/Blood Transfusion Reactions: No Reported Reaction Past Psychological History: Anxiety, Depression Smoking Status: Current every day smoker Past Alcohol Use History: Rare Past Drug Use History: None Reported - Past Family History Mother Family Medical History: Deep Vein Thrombosis (DVT) Sister(s) Family Medical History: Cancer Medications and Allergies Home Medications Medication Instructions Recorded Confirmed Type Primidone [Mysoline] 250 mg PO DAILY 04/09/15 03/12/23 History amLODIPine [Norvasc] 10 mg PO DAILY 04/23/15 03/12/23 History ARIPiprazole [Abilify] 5 mg PO DAILY 05/25/18 03/12/23 History Albuterol Inhaler [Ventolin Hfa 2 puff INHALATION RT-Q6H PRN 02/03/21 03/12/23 History Inhaler] Fluticasone/Umeclidin/V[place]an[place] 1 puff INHALATION RT-DAILY 02/03/21 03/12/23 History [Trelegy Ellipta 100-62.5-25] HYDROcodone/APAP 7.5-325MG [[place] 1 tab PO DIRECTED 03/12/23 03/12/23 History 7.5-325] Ibuprofen [Motrin] 800 mg PO Q8H PRN 03/12/23 03/12/23 History rOPINIRole HCL [Requip] 1 mg PO HS PRN 03/12/23 03/12/23 History Losartan [Cozaar] 50 mg PO DAILY #30 tab 03/14/23 Rx Pravastatin Sodium [Pravachol] 20 mg PO HS #30 tab 03/14/23 Rx Allergies Allergy/AdvReac Type Severity Reaction Status Date / Time Woxbwnf-PCG-AnU Reductase AdvReac Myalgia Verified 03/12/23 15:57 Inhibitor [Tymnfxc-Ern-Tan Reductase Inhibitor] varenicline [From Chantix] AdvReac Nightmares Verified 03/12/23 15:57 Physical Exam Vitals: Vital Signs Temp Pulse Resp BP Pulse Ox 03/12/23 12:19 73 03/12/23 12:11 75 03/12/23 11:07 98.3 F 80 18 129/78 97 Intake and Output 03/11/23 03/12/23 03/12/23 22:59 06:59 14:59 Other: Weight 74.843 kg PHYSICAL EXAMINATION: GENERAL: The patient is alert and oriented x3, not in any acute distress. Well developed, well nourished. HEENT: Pupils are round and equally reacting to light. EOMI. No scleral icterus. No conjunctival pallor. Normocephalic, atraumatic. No pharyngeal erythema. No thyromegaly. CARDIOVASCULAR: S1 and S2 present. No murmurs, rubs, or gallops. PULMONARY: Chest is clear to auscultation, no wheezing or crackles. ABDOMEN: Soft, nontender, nondistended, normoactive bowel sounds. No palpable or ganomegaly. MUSCULOSKELETAL: No joint swelling or deformity. EXTREMITIES: No cyanosis, clubbing, or pedal edema. NEUROLOGICAL: Gross neurological examination did not reveal any focal deficits. SKIN: No rashes. Results CBC & Chem 7: 03/12/23 11:07 03/12/23 11:07 Labs: Abnormal Lab Results - Last 24 Hours (Table) 03/12/23 03/12/23 03/12/23 Range/Units 11:07 11: 11:07 RDW 17.5 H (11.5-15.5) % D-Dimer 0.89 H (<0.60) mg/L FEU Creatinine 0.49 L (0.52-1.04) mg/dL AST 73 H (14-36) U/L ALT 67 H (4-34) U/L Alkaline Phosphatase 198 H (38-126) U/L Assessment and Plan Assessment: 1. Chest rule out acute coronary syndrome - Initial troponin is unremarkable; EKG does not reveal any acute ST or T-wave changes - Patient will be admitted to telemetry for close EKG monitoring and trend troponin - We will continue home dose of aspirin; currently not on any beta blockers - Cardiology is consulted; appreciate recommendations 2. Acute exacerbation COPD - Patient is placed on Solu-Medrol 60 mg IV every 6 hours; DuoNeb nebulizer treatments 4 times a day and when necessary; we will add doxycycline for medical prophylaxis - Continue with O2 per nasal cannula keeping O2 saturation greater than 92% 3. Hypertension; Norvasc 10 mg daily 4. Restless leg syndrome; Requip 1 mg by mouth daily at bedtime 5. Osteoarthritis; continue with home dose of [place] 7.5 mg every 6 hours when necessary 6. Gastroesophageal reflux disease/gastritis; continue with home PPI 7. Depression/bipolar disorder; continue with home dose of Abilify 5 mg daily DVT prophylaxis; SCDs CODE STATUS; full code
[2023-03-14] MEDS ORDERED: ARIPiprazole 5 MG TAB PO SCH (09:45)
[2023-03-14] MEDS ORDERED: amLODIPine 10 MG TAB PO SCH (09:45)
[2023-03-14] MEDS ORDERED: PRIMIDONE 250 MG TAB PO SCH (09:45)
[2023-03-14] MEDS ORDERED: HYDROcodone/APAP 7.5-325MG 1 EACH TAB PO PRN (09:45)
[2023-03-14 12:11] VITALS: PULSE 92
--- NOTE | 2023-03-14 12:55 | P.PN ---
Subjective Progress Note Date: 03/14/23 This is Arpan Vazquez NP, I'm dictating on behalf of Dr. Owen's H&P and A&P. Patient was interviewed and examined. Patient is a pleasant 68-year-old female who presented to the hospital with new onset shortness of breath and chest discomfort. Patient has had an acute exacerbation of COPD. Patient today reports her cough continues, and does report chest pain associated with a cough. She otherwise denies chest pain at rest, shortness of breath, heart palpitations. Echocardiogram was completed wh ich demonstrates LVH, an EF of 50-55%. Patient's cholesterol is noted to be 222 with an LDL of 150. GENERAL: Well-appearing, well-nourished and in no acute distress. NECK: Supple without JVD or thyromegaly. LUNGS: Breath sounds clear to auscultation bilaterally. Respiration equal and unlabored. No wheezes, rales or rhonchi. HEART: Regular rate and rhythm without murmurs, rubs or gallops. S1 and S2 heard. EXTREMITIES: Normal range of motion, no edema. No clubbing or cyanosis. Peripheral pulses intact and strong. VITALS: Temp 98.0, pulse 95, respirations 19, blood pressure 146/80, O2 saturation 97% on room air TELEMETRY: Normal sinus rhythm LABS: Labs reviewed, no new labs since 03/13/2023 IMPRESSION: 1. Chest discomfort, ACS workup unremarkable 2. Elevated d-dimer, no evidence of pulmonary was 3. Worsening shortness of breath, COPD versus upper respiratory infection 4. History of smoking PLAN: Start Pravachol 20 mg at bedtime. Start losartan 50 mg at bedtime. Patient is okay for discharge from a cardiology standpoint. Follow-up with Dr. Owen in 3 weeks. Thank you for allowing us to participate in the care of this patient. Objective - Vital Signs Vital signs: Vital Signs Temp 98 F 03/14/23 07:18 Pulse 92 03/14/23 12:11 Resp 19 03/14/23 07:18 BP 146/80 03/14/23 07:18 Pulse Ox 97 03/14/23 07:18 FiO2 Intake & Output 03/13/23 03/14/23 03/14/23 18:59 06:59 18:59 Intake Total 360 180 Balance 360 180 Intake: Oral 360 180 Other: Voiding Method Toilet # Voids 3 1 - Labs CBC & Chem 7: 03/12/23 11:07 03/12/23 11:07
[2023-03-14] MEDS ORDERED: SYMBICORT 80-4.5 MCG INHALER INHALATION SCH (20:00)
[2023-03-14] MEDS ORDERED: PRAVASTATIN SODIUM 20 MG TAB PO SCH (21:00)
[2023-03-14] MEDS ORDERED: LOSARTAN 50 MG TAB PO SCH (21:00)
== END 2023-03-14 13:22 | disposition home or self-care (01) ==
LOC: EC 10:52 → 6NMEDSUR 14:18
PROVIDERS: ADMIT Internal Medicine; ATTEND Internal Medicine
DX: R07.89 Other chest pain (principal); R79.1 Abnormal coagulation profile; R06.02 Shortness of breath; F17.200 Nicotine dependence, unspecified, uncomplicated; K21.9 Gastro-esophageal reflux disease without esophagitis; I10 Essential (primary) hypertension; M19.90 Unspecified osteoarthritis, unspecified site; R25.1 Tremor, unspecified; Z90.49 Acquired absence of other specified parts of digestive tract; Z98.51 Tubal ligation status; Z98.1 Arthrodesis status; Z96.649 Presence of unspecified artificial hip joint; Z82.49 Family history of ischemic heart disease and other diseases of the circulatory system; Z80.9 Family history of malignant neoplasm, unspecified; Z79.51 Long term (current) use of inhaled steroids; Z79.899 Other long term (current) drug therapy; Z79.82 Long term (current) use of aspirin; Z88.8 Allergy status to other drugs, medicaments and biological substances
CPT/HCPCS: 96376 ×3; 96374; 99285; 36415; 94640 ×5; 94760; 93005; 85379; 83880; 80061; 80053; 83605; 83735; 84484; 85025; 85610; 85730; 71046; 71275; G0378 ×3; C8929; J2930 ×3; Q9950; Q9967; 93306